=== PATIENT | female | born 1965 | race African-American/Black ===

== ENCOUNTER 2017-08-22 11:46 | Emergency (ER) | payer MEDICAID, OTHER ==
[~2017-08-22] VITALS: Ht 167.6 cm; Wt 72.6 kg
[2017-08-22] MEDS ORDERED: LORazepam Inj 2mg/ml 1ml IV ONE (12:00)
[2017-08-22 12:02] VITALS: BP 150/100
[2017-08-22 12:39] LABS: BASOPHILS % (AUTO) 1.6 % (0.0-2.0); EOSINOPHILS % (AUTO) 0.8 % (0.0-3.0); LYMPHOCYTES % (AUTO) 27.7 % (20.0-45.0); MEAN CORPUSCULAR HEMOGLOBIN 31.2 PG (27.0-31.0); MEAN CORPUSCULAR HGB CONC 32.6 G/DL (32.0-36.0); MEAN CORPUSCULAR VOLUME 96 FL (80-99); NEUTROPHILS % (AUTO) 61.8 % (45.0-75.0); PLATELET COUNT 366 K/UL (150-450); RED BLOOD COUNT 4.11 M/UL (4.20-5.40); RED CELL DISTRIBUTION WIDTH 12.4 % (11.6-14.8); WHITE BLOOD COUNT 6.8 K/UL (4.8-10.8)
[2017-08-22 12:54] LABS: ALANINE AMINOTRANSFERASE 50 U/L (3-33); ANION GAP 14 (5-15); ASPARTATE AMINO TRANSFERASE 37 U/L (5-40); CALCIUM 9.4 mg/dL (8.6-10.2); CARBON DIOXIDE 26 mEQ/L (20-30); CHLORIDE 99 mEQ/L (98-107); CREATININE 0.8 mg/dL (0.5-0.9); GLOMERULAR FILTRATION RATE > 60 mL/min (>60); HEMOLYSIS 2; POTASSIUM 3.8 mEQ/L (3.4-4.9); SODIUM 139 mEQ/L (135-145); TOTAL PROTEIN 7.8 g/dL (6.6-8.7)
[2017-08-22 12:55] LABS: APPEARANCE,URINE CLEAR; KETONES,URINE NEGATIVE (NEGATIVE); LEUKOCYTE ESTERASE ,URINE NEGATIVE (NEGATIVE); NITRITE,URINE NEGATIVE (NEGATIVE); PH,URINE 5 (4.5-8.0); PROTEIN,URINE NEGATIVE (NEGATIVE); UROBILINOGEN,URINE NORMAL MG/DL (0.0-1.0)
[2017-08-22 13:09] LABS: RBC,URINE 0-2 /HPF (0 - 2); WBC,URINE 0-2 /HPF (0 - 2)
[2017-08-22 13:10] LABS: BACTERIA,URINE FEW /HPF; SQUAMOUS EPITHELIAL CELL,UR FEW /LPF (NONE/OCC)
--- NOTE | 2017-08-22 14:18 | Emergency Room Report ---
History of Present Illness General Chief Complaint: General Complaint Source: Patient, Medical Record Present Illness HPI This is 51-year-old female presented after increased shakiness. Patient recently been evicted for recuperative care. Patient stated that she had become increasingly shaky. She denies recent drug use. She states that she had onset of symptoms after she had pain in her hernia. The patient had a previous history of a right inguinal hernia. She been vomiting or having any fever. Allergies: Coded Allergies: No Known Allergies (Unverified , 08/22/17) Patient History Past Medical History: see triage record Reviewed Nursing Documentation: PMH: Agreed, PSxH: Agreed Nursing Documentation-PMH Past Medical History: No History, Except For History Of Psychiatric Problem: Yes - Anxiety, Depression Review of Systems All Other Systems: negative except mentioned in HPI Physical Exam Vital Signs Date Time Temp Pulse Resp B/P (MAP) Pulse Ox O2 Delivery O2 Flow Rate FiO2 08/22/17 11:41 98.4 80 16 150/100 99 Room Air Sp02 EP Interpretation: reviewed, normal General Appearance: normal inspection, well appearing, no apparent distress, alert, GCS 15 Head: atraumatic ENT: normal ENT inspection, hearing grossly normal, normal voice Neck: normal inspection, full range of motion, supple, no bony tend Respiratory: normal inspection, lungs clear, normal breath sounds, no respiratory distress, no retraction, no wheezing Cardiovascular #1: regular rate, rhythm, no edema Gastrointestinal: normal inspection, normal bowel sounds, non tender, soft, no guarding, no hernia Genitourinary: no CVA tenderness Musculoskeletal: normal inspection, back normal, normal range of motion Neurologic: normal inspection, alert, responsive, speech normal Psychiatric: mood/affect normal, other - agitated, moving right leg Skin: normal inspection, normal color, no rash Medical Decision Making Diagnostic Impression: Primary Impression: Inguinal hernia Additional Impression: Anxiety ER Course Patient presented for agitation. Differential diagnosis included but was not limited to psychosis, intracranial mass, substance abuse, alcohol withdrawal, overdose. Because of complexity of patient's case laboratory testing and imaging studies were ordered.The patient shows no evidence of obstruction hernias easily reducible.The patient was given IV Ativan for agitation. The patient was having shaking movements to her lower extremities which appear volitional. Acute abdominal series read by radiologist showed no evidence of bowel obstruction. Clinically the patient hernia is easily reducible. Patient was discharged to back to recuperative care who will place the patient per social service manager. The patient did not have any seizure activity while in emergency department. She was noted to have some shaking activity which appeared volitional. The patient is advised followup with outpatient mental health. Labs Test 08/22/17 12:10 08/22/17 12:40 White Blood Count 6.8 K/UL (4.8-10.8) Red Blood Count 4.11 M/UL (4.20-5.40) Hemoglobin 12.8 G/DL (12.0-16.0) Hematocrit 39.3 % (37.0-47.0) Mean Corpuscular Volume 96 FL (80-99) Mean Corpuscular Hemoglobin 31.2 PG (27.0-31.0) Mean Corpuscular Hemoglobin Concent 32.6 G/DL (32.0-36.0) Red Cell Distribution Width 12.4 % (11.6-14.8) Platelet Count 366 K/UL (150-450) Mean Platelet Volume 6.0 FL (6.5-10.1) Neutrophils (%) (Auto) 61.8 % (45.0-75.0) Lymphocytes (%) (Auto) 27.7 % (20.0-45.0) Monocytes (%) (Auto) 8.0 % (1.0-10.0) Eosinophils (%) (Auto) 0.8 % (0.0-3.0) Basophils (%) (Auto) 1.6 % (0.0-2.0) Sodium Level 139 mEQ/L (135-145) Potassium Level 3.8 mEQ/L (3.4-4.9) Chloride Level 99 mEQ/L (98-107) Carbon Dioxide Level 26 mEQ/L (20-30) Anion Gap 14 (5-15) Blood Urea Nitrogen 11 mg/dL (7-23) Creatinine 0.8 mg/dL (0.5-0.9) Estimat Glomerular Filtration Rate > 60 mL/min (>60) Glucose Level 109 mg/dL (74-106) Calcium Level 9.4 mg/dL (8.6-10.2) Total Bilirubin 0.3 mg/dL (0.0-1.2) Aspartate Amino Transf (AST/SGOT) 37 U/L (5-40) Alanine Aminotransferase (ALT/SGPT) 50 U/L (3-33) Alkaline Phosphatase 148 U/L (35-104) Total Protein 7.8 g/dL (6.6-8.7) Albumin 3.9 g/dL (3.5-5.2) Globulin 3.9 g/dL Albumin/Globulin Ratio 1.0 (1.0-2.7) Urine Color Pale yellow Urine Appearance Clear Urine pH 5 (4.5-8.0) Urine Specific [place] 1.010 (1.005-1.035) Urine Protein Negative (NEGATIVE) Urine Glucose (UA) Negative (NEGATIVE) Urine Ketones Negative (NEGATIVE) Urine Occult Blood Negative (NEGATIVE) Urine Nitrite Negative (NEGATIVE) Urine Bilirubin Negative (NEGATIVE) Urine Urobilinogen Normal MG/DL (0.0-1.0) Urine Leukocyte Esterase Negative (NEGATIVE) Urine RBC 0-2 /HPF (0 - 2) Urine WBC 0-2 /HPF (0 - 2) Urine Squamous Epithelial Cells Few /LPF (NONE/OCC) Urine Bacteria Few /HPF (NONE) Urine Opiates Screen Negative (NEGATIVE) Urine Barbiturates Screen Negative (NEGATIVE) Phencyclidine (PCP) Screen Negative (NEGATIVE) Urine Amphetamines Screen Negative (NEGATIVE) Urine Benzodiazepines Screen Negative (NEGATIVE) Urine Cocaine Screen Negative (NEGATIVE) Urine Marijuana (THC) Screen Negative (NEGATIVE) Last Vital Signs Date Time Temp Pulse Resp B/P (MAP) Pulse Ox O2 Delivery O2 Flow Rate FiO2 08/22/17 12:02 98.4 16 150/100 99 Room Air 08/22/17 11:41 80 Status: improved Disposition: HOME, SELF-CARE Condition: Stable Referrals: AVIVA MANSFIELD,REFERRING (PCP) Yves Gandara Aug 22, 2017 14:18
[2017-08-22 14:20] VITALS: BP 161/106
--- NOTE | 2017-08-22 14:50 | Diagnostic Imaging Report ---
Indication: PAIN Technique: Supine and of lateral decubitus views of the abdomen Comparison: none Findings: There is slight groundglass opacity of the abdomen and central distribution of bowel loops. No gaseous distention of large or small bowel, significant air-fluid level, or evidence of free peritoneal air. Impression: Abdominal groundglass opacity in central distribution of small bowel loops suggests presence of ascites fluid. Correlate with clinical findings No evidence of bowel distention
[2017-08-22 16:12] VITALS: BP 137/88
== END 2017-08-22 16:12 | disposition home or self-care (01) ==
LOC: EDBD 11:46 → EMR 12:18
DX: K40.90 Unilateral inguinal hernia, without obstruction or gangrene, not specified as recurrent (principal); F41.9 Anxiety disorder, unspecified; F32.9 Major depressive disorder, single episode, unspecified
CPT/HCPCS: 36415; 74020; 80053; 80300; 80329; 81001; 85025; 96372; 99284

== ENCOUNTER 2017-10-27 16:32 | Emergency (ER) | payer MEDICAID ==
[~2017-10-27] VITALS: Ht 167.6 cm; Wt 59.0 kg
[2017-10-27 16:37] VITALS: BP 115/69
[2017-10-27] MEDS ORDERED: Sodium Chloride 500ML 500 ML IV ONE (16:44)
[2017-10-27] MEDS ORDERED: LORazepam Inj 2mg/ml 1ml IV ONE (16:45)
[2017-10-27] MEDS ORDERED: Morphine Sulfate 4mg/ml Inj IVP ONE (16:45)
[2017-10-27 17:58] LABS: APPEARANCE,URINE CLEAR; KETONES,URINE NEGATIVE (NEGATIVE); LEUKOCYTE ESTERASE ,URINE NEGATIVE (NEGATIVE); NITRITE,URINE NEGATIVE (NEGATIVE); PH,URINE 7 (4.5-8.0); PROTEIN,URINE NEGATIVE (NEGATIVE); UROBILINOGEN,URINE NORMAL MG/DL (0.0-1.0)
[2017-10-27 18:07] LABS: BACTERIA,URINE FEW /HPF; SQUAMOUS EPITHELIAL CELL,UR FEW /LPF (NONE/OCC); WBC,URINE 0-2 /HPF (0 - 2)
[2017-10-27 18:09] LABS: BASOPHILS % (AUTO) 2.4 % (0.0-2.0); EOSINOPHILS % (AUTO) 2.4 % (0.0-3.0); LYMPHOCYTES % (AUTO) 31.7 % (20.0-45.0); MEAN CORPUSCULAR HEMOGLOBIN 30.6 PG (27.0-31.0); MEAN CORPUSCULAR HGB CONC 32.2 G/DL (32.0-36.0); MEAN CORPUSCULAR VOLUME 95 FL (80-99); MEAN PLATELET VOLUME 5.2 FL (6.5-10.1); MONOCYTES % (AUTO) 6.4 % (1.0-10.0); PLATELET COUNT 395 K/UL (150-450); RED BLOOD COUNT 3.69 M/UL (4.20-5.40); RED CELL DISTRIBUTION WIDTH 12.7 % (11.6-14.8); WHITE BLOOD COUNT 7.2 K/UL (4.8-10.8)
[2017-10-27 18:11] LABS: ANION GAP 9 mmol/L (5-15); CALCIUM 9.9 MG/DL (8.5-10.1); CARBON DIOXIDE 30 MMOL/L (21-32); CHLORIDE 98 MMOL/L (98-107); CREATININE 0.9 MG/DL (0.55-1.30); GLOMERULAR FILTRATION RATE > 60 mL/min (>60); POTASSIUM 3.8 MMOL/L (3.5-5.1); SODIUM 137 MMOL/L (136-145)
[2017-10-27 18:16] LABS: ALANINE AMINOTRANSFERASE 42 U/L (12-78); ALBUMIN/GLOBULIN RATIO 0.7 (1.0-2.7); ASPARTATE AMINO TRANSFERASE 28 U/L (15-37); LIPASE 48 U/L (73-393); TOTAL PROTEIN 8.8 G/DL (6.4-8.2)
[2017-10-27 19:43] VITALS: BP 118/71
[2017-10-27] MEDS ORDERED: Ketorolac 30mg Inj IV ONE (20:00)
[2017-10-27 20:21] VITALS: BP 110/65
[2017-10-27 21:00] VITALS: BP 110/65
--- NOTE | 2017-10-27 21:12 | Emergency Room Report ---
History of Present Illness General Chief Complaint: Nausea Source: Patient Present Illness HPI 51-year-old female presents ED complaining of abdominal pain and vomiting. Started approximately 2 hours ago. Upon arrival patient appears very anxious and is crying. Patient states she has history of anxiety. Patient states she has a "tumor" in her lower abdomen which is causing hernia. Patient states she has a PMD which referring her to get multiple tests next week at [facility]. Patient states she also has ascites drained from her abdomen 2 weeks ago at another hospital. Patient states she does not have a history of cirrhosis. Pain is currently a 7/10, sharp, nonradiating. Denies fevers or chills. Denies chest pain shortness of breath. No other aggravating relieving factors. Denies any other associated symptoms Allergies: Uncoded Allergies: UNKNOWN PAIN MEDS (Allergy, Unknown, 10/27/17) Patient History Past Medical History: none Past Surgical History: none Pertinent Family History: none Social History: Denies: smoking, alcohol use, drug use Now: No Immunizations: UTD Reviewed Nursing Documentation: PMH: Agreed, PSxH: Agreed Nursing Documentation-PMH Past Medical History: No History, Except For Review of Systems All Other Systems: negative except mentioned in HPI Physical Exam Vital Signs Date Time Temp Pulse Resp B/P (MAP) Pulse Ox O2 Delivery O2 Flow Rate FiO2 10/27/17 16:27 66 19 138/78 98 Room Air 10/27/17 16:37 98.0 Sp02 EP Interpretation: reviewed, normal General Appearance: no apparent distress, alert, GCS 15, non-toxic, thin Head: normocephalic, atraumatic Eyes: bilateral eye normal inspection, bilateral eye PERRL ENT: hearing grossly normal, normal pharynx, no angioedema, normal voice Neck: full range of motion, supple/symm/no masses Respiratory: chest non-tender, lungs clear, normal breath sounds, speaking full sentences Cardiovascular #1: regular rate, rhythm, no edema Cardiovascular #2: 2+ carotid (R), 2+ carotid (L), 2+ radial (R), 2+ radial (L) , 2+ dorsalis pedis (R), 2+ dorsalis pedis (L) Gastrointestinal: normal bowel sounds, soft, non-distended, no guarding, no rebound, tenderness - RUQ Rectal: deferred Genitourinary: normal inspection, no CVA tenderness Musculoskeletal: back normal, gait/station normal, normal range of motion, non- tender Neurologic: alert, oriented x3, responsive, motor strength/tone normal, sensory intact, speech normal Psychiatric: judgement/insight normal, memory normal, depressed affect, anxious Reflexes: 3+ bicep (R), 3+ bicep (L), 3+ tricep (R), 3+ tricep (L), 3+ knee (R) , 3+ knee (L) Skin: normal color, no rash, warm/dry, well hydrated Lymphatic: no adenopathy Medical Decision Making Diagnostic Impression: Primary Impression: Inguinal hernia Qualified Codes: K40.91 - Unilateral inguinal hernia, without obstruction or gangrene, recurrent Additional Impression: Abdominal pain Qualified Codes: R10.9 - Unspecified abdominal pain ER Course Hospital Course 51-year-old F presents to ED with abdominal pain Differential diagnosis includes-appendicitis, cholecystitis, small bowel obstruction, gastritis, Clinical course Patient placed on stretcher. After initial history and physical I ordered labs , IV fluids, pain medications and CT scan Labs - no leukocytosis, electrolytes ok, LFTs normal, UA unremarkable CT scan shows some ascites, inguinal hernia but no signs of obstruction Discussed the findings with PMD; he is a patient has significant psychiatric history and has been seen by a full specialists for her abdominal pain. He agrees that if CT findings are unremarkable she can be discharged with outpatient followup Discussed the findings with the patient. No indication for admission or further workup. patient can be discharged I feel this is a highly complex case requiring extensive working including EKG/ Rhythm strip, Xray/CT/US, Blood/urine lab work, repeat exams while in ED, and administration of strong opiates/narcotics for pain control, admission to hospital or close patient follow up. Diagnosis - inguinal hernia, abdominal pain Stable and discharged to home. Followup with PMD. Return to ED if symptoms recur or worsen Labs Test 10/27/17 17:30 White Blood Count 7.2 K/UL (4.8-10.8) Red Blood Count 3.69 M/UL (4.20-5.40) Hemoglobin 11.3 G/DL (12.0-16.0) Hematocrit 35.0 % (37.0-47.0) Mean Corpuscular Volume 95 FL (80-99) Mean Corpuscular Hemoglobin 30.6 PG (27.0-31.0) Mean Corpuscular Hemoglobin Concent 32.2 G/DL (32.0-36.0) Red Cell Distribution Width 12.7 % (11.6-14.8) Platelet Count 395 K/UL (150-450) Mean Platelet Volume 5.2 FL (6.5-10.1) Neutrophils (%) (Auto) 57.0 % (45.0-75.0) Lymphocytes (%) (Auto) 31.7 % (20.0-45.0) Monocytes (%) (Auto) 6.4 % (1.0-10.0) Eosinophils (%) (Auto) 2.4 % (0.0-3.0) Basophils (%) (Auto) 2.4 % (0.0-2.0) Urine Color Pale yellow Urine Appearance Clear Urine pH 7 (4.5-8.0) Urine Specific [place] 1.005 (1.005-1.035) Urine Protein Negative (NEGATIVE) Urine Glucose (UA) Negative (NEGATIVE) Urine Ketones Negative (NEGATIVE) Urine Occult Blood 1+ (NEGATIVE) Urine Nitrite Negative (NEGATIVE) Urine Bilirubin Negative (NEGATIVE) Urine Urobilinogen Normal MG/DL (0.0-1.0) Urine Leukocyte Esterase Negative (NEGATIVE) Urine RBC 5-10 /HPF (0 - 2) Urine WBC 0-2 /HPF (0 - 2) Urine Squamous Epithelial Cells Few /LPF (NONE/OCC) Urine Bacteria Few /HPF (NONE) Sodium Level 137 MMOL/L (136-145) Potassium Level 3.8 MMOL/L (3.5-5.1) Chloride Level 98 MMOL/L (98-107) Carbon Dioxide Level 30 MMOL/L (21-32) Anion Gap 9 mmol/L (5-15) Blood Urea Nitrogen 18 mg/dL (7-18) Creatinine 0.9 MG/DL (0.55-1.30) Estimat Glomerular Filtration Rate > 60 mL/min (>60) Glucose Level 95 MG/DL (74-106) Calcium Level 9.9 MG/DL (8.5-10.1) Total Bilirubin 0.3 MG/DL (0.2-1.0) Aspartate Amino Transf (AST/SGOT) 28 U/L (15-37) Alanine Aminotransferase (ALT/SGPT) 42 U/L (12-78) Alkaline Phosphatase 120 U/L (46-116) Total Protein 8.8 G/DL (6.4-8.2) Albumin 3.5 G/DL (3.4-5.0) Globulin 5.3 g/dL Albumin/Globulin Ratio 0.7 (1.0-2.7) Lipase 48 U/L (73-393) CT/MRI/US Diagnostic Results CT/MRI/US Diagnostic Results : Imaging Test Ordered: CT A/P Impression Large volume of ascites present, presumably related to the known history of cirrhosis. No urinary tract stone or hydronephrosis. No evidence of intestinal obstruction, appendicitis or free air. Right inguinal region soft tissue thickening, could include a small amount of ascites extending into a right inguinal hernia and/or postsurgical changes. No adnexal mass is identified. Last Vital Signs Date Time Temp Pulse Resp B/P (MAP) Pulse Ox O2 Delivery O2 Flow Rate FiO2 10/27/17 20:21 98.0 71 15 110/65 100 Room Air Status: improved Disposition: HOME, SELF-CARE Condition: Stable Scripts Unable to Obtain Active Prescriptions or Reported Meds Referrals: Blaine Malave Patient Instructions: Inguinal Hernia, Adult, [id number] VÍCTOR JOSHI M.D. Oct 27, 2017 21:12
--- NOTE | 2017-10-28 10:01 | Diagnostic Imaging Report ---
Clinical Indication: Abdominal and back pain and 2 hours. History of liver cirrhosis Technique: No oral contrast utilized, per emergency room physician request IV administration nonionic contrast. Venous phase spiral acquisition obtained through the abdomen and pelvis. Multiplanar reconstructions were generated. Total dose length product 556 mGycm. CTDIvol(s) 10 mGy. Dose reduction achieved using automated exposure control Comparison: None Findings: There is a moderate amount of ascites fluid present. There is colonic diverticulosis. No definite evidence of diverticulitis. The appendix is normal. No small bowel distention. No free intraperitoneal air. No pelvic mass or adenopathy. Soft tissue attenuation material is seen within the right inguinal canal. This does not appear to be herniated bowel, although this cannot be completely ruled out in the absence of enteric contrast administration The liver demonstrates normal contour. The portal vein is patent. No focal hepatic abnormalities. Gallbladder, bile bile ducts are unremarkable. The pancreas is atrophic and the pancreatic duct is slightly ectatic. The spleen is not enlarged. The adrenals and kidneys are unremarkable. No retroperitoneal or mesenteric mass or adenopathy. The uterus is not visualized, likely surgically absent. The included lung bases are clear. There are bilateral breast implants. The bones demonstrate degenerative spondylosis changes. Impression: Ascites, presumably related to stated clinical history of cirrhosis Soft tissue attenuation material within the right inguinal canal, could indicate postsurgical changes or dense fluid. Does not appear to be herniated bowel Diverticulosis. No evidence of diverticulitis Normal-appearing liver, despite stated clinical history of cirrhosis Pancreatic atrophy, suspect sequela of prior pancreatitis Bilateral breast implants Degenerative lumbar spondylosis This agrees with the preliminary interpretation provided overnight by [facility] teleradiology service. The CT scanner at [facility] is accredited by the [employer] and the scans are performed using protocols designed to limit radiation exposure to as low as reasonably achievable to attain images of sufficient resolution adequate for diagnostic evaluation.
[2017-10-28] MEDS ORDERED: ROBAXIN-750750 MG PO (17:21)
[2017-10-28] MEDS ORDERED: BENADRYL ALLERG25 M1 PO (17:21)
[2017-10-28] MEDS ORDERED: QUETIAPINE FUM300 MG ORAL (17:43)
[2017-10-28] MEDS ORDERED: LEXAPRO20 MG ORAL ×2 (17:43→17:47)
[2017-10-28] MEDS ORDERED: SPIRONOLACTONE1 EACH ORAL (17:43)
[2017-10-28] MEDS ORDERED: DOK100 M1 PO (17:43)
[2017-10-28] MEDS ORDERED: FUROSEMIDE40 MG/5 ML ORAL (17:43)
[2017-10-28] MEDS ORDERED: PANTOPRAZOLE SO20 MG ORAL (17:43)
[2017-10-28] MEDS ORDERED: ENALAPRIL MALEA25 GM MC (17:43)
[2017-10-28] MEDS ORDERED: IBUPROFEN400 MG ORAL (18:03)
== END 2017-10-27 21:00 | disposition home or self-care (01) ==
LOC: EDBD 16:32 → EMR 17:01
DX: K40.90 Unilateral inguinal hernia, without obstruction or gangrene, not specified as recurrent (principal); R10.9 Unspecified abdominal pain; K57.30 Diverticulosis of large intestine without perforation or abscess without bleeding; Z98.82 Breast implant status; M47.816 Spondylosis without myelopathy or radiculopathy, lumbar region
CPT/HCPCS: 36415; 74177; 80053; 81003; 83690; 85025; 96361; 96374; 96375; 99284; J1885; J2270; J2405; J7040; Q9967

== ENCOUNTER 2017-10-28 15:33 | Emergency (ER) | payer MEDICAID ==
[~2017-10-28] VITALS: Ht 162.6 cm; Wt 59.0 kg
[2017-10-28 15:40] VITALS: BP 132/73
--- NOTE | 2017-10-28 15:57 | Emergency Room Report ---
History of Present Illness General Chief Complaint: General Complaint Source: Patient Present Illness HPI 51 YO Female presents to the ED c/o lower extremity muscle cramping times one day worsening or progression since running out of her muscle relaxant medication that she states is Robaxin. She reports generalized itchiness. denies lesions open sores or blisters.Denies lesions/rashes elsewhere on the body. Denies new medications or body washes or creams. Denies swelling of the lips, tongue , throat or airway. Denies wheezing, or shortness of breath. Denies recent travel, recent illness or ill contacts. denies blisters, oral lesions, or sloughing of the skin. denies trauma or fall. Denies CP, Palpitations, LOC, AMS, dizziness, Changes in Vision, Sensation, paresthesias, or a sudden severe headache. Allergies: Coded Allergies: ACETAMINOPHEN (Verified Allergy, Unknown, 10/28/17) HYDROCODONE (Verified Allergy, Unknown, 10/28/17) Patient History Past Medical History: see triage record Past Surgical History: none Pertinent Family History: none Reviewed Nursing Documentation: PMH: Agreed, PSxH: Agreed Nursing Documentation-PMH Hx Cardiac Problems: No Hx Hypertension: No Hx Pacemaker: No Hx Asthma: No Hx COPD: No Hx Diabetes: No Hx Cancer: No Hx Gastrointestinal Problems: No Hx Dialysis: No Hx Neurological Problems: No Hx Cerebrovascular Accident: No Hx Seizures: No Review of Systems All Other Systems: negative except mentioned in HPI Physical Exam Vital Signs Date Time Temp Pulse Resp B/P (MAP) Pulse Ox O2 Delivery O2 Flow Rate FiO2 10/28/17 15:30 97.9 86 16 132/73 98 Sp02 EP Interpretation: reviewed, normal General Appearance: alert, GCS 15, non-toxic, mild distress Head: normocephalic, atraumatic Eyes: bilateral eye normal inspection, bilateral eye PERRL ENT: hearing grossly normal, normal pharynx, normal voice, other - no oral lesions Neck: full range of motion, supple/symm/no masses Respiratory: chest non-tender, lungs clear, normal breath sounds, speaking full sentences Cardiovascular #1: regular rate, rhythm, no edema, normal capillary refill Gastrointestinal: normal bowel sounds, non tender, soft Rectal: deferred Musculoskeletal: back normal, gait/station normal, normal range of motion, tender - calf cramping. Neurologic: alert, oriented x3, responsive, motor strength/tone normal, sensory intact, speech normal, no pronator, other - restless legs during exam with questioning she is distracted and her symptoms do subside. , grossly normal Psychiatric: other - histrionic. Skin: normal color, no rash, warm/dry, well hydrated Medical Decision Making PA Attestation Dr. Clayton is my supervising Physician whom patient management has been discussed with. Diagnostic Impression: Primary Impression: Muscle cramping Additional Impression: Medication refill ER Course 51 YO Female presents to the ED c/o lower extremity muscle cramping times one day worsening or progression since running out of her muscle relaxant medication that she states is Robaxin. She reports generalized itchiness. denies lesions open sores or blisters.Denies lesions/rashes elsewhere on the body. Denies new medications or body washes or creams. Denies swelling of the lips, tongue , throat or airway. Denies wheezing, or shortness of breath. Denies recent travel, recent illness or ill contacts. denies blisters, oral lesions, or sloughing of the skin. denies trauma or fall. Denies CP, Palpitations, LOC, AMS, dizziness, Changes in Vision, Sensation, paresthesias, or a sudden severe headache. Ddx considered but are not limited to Pseudoseizure, muscle cramps and spasms, electrolyte abnormality, malingering, psych somatizations just to name a few. This patient states that her symptoms are primarily because she's been out of her Robaxin. Patient also states that she has a psychiatric complaint and this Saturday. When I reviewed this patient's previous charts I see that suspected psychiatric condition and that she has been worked up by a specialist in the past. She was seen here in the emergency department yesterday and her primary care doctor is aware of this and stated that the patient has been going from the ER to ER. -Patient appears to have restless legs during exam with questioning she is distracted and her symptoms do subside. Vital signs: are WNL, pt. is afebrile H&PE are most consistent with RLS, no evidence of grand-mal seizure. no evidence of neurological deficits. ORDERS: Given that laboratory work was performed yesterday and was within normal limits I do not feel that it is appropriate to repeat these examinations. -UA: WNL -UDS: Negative ED INTERVENTIONS: -1 G Robaxin PO -Benadryl 50mg -I do not suspect an emergent condition at this time. With current presentation , pt. is stable for close outpatient follow up and conservative treatment. D/ w pt. to return promptly to ED with worsening or new symptoms.- Pt. (and or responsible democrat) verbalizes' understanding and agreement with proposed treatment plan. DISCHARGE: At this time pt. is stable for d/c to home. Will provide printed patient care instructions, and any necessary prescriptions. Care plan and follow up instructions have been discussed with the patient prior to discharge. Labs Test 10/28/17 16:30 Urine Color Pale yellow Urine Appearance Clear Urine pH 5 (4.5-8.0) Urine Specific [place] 1.005 (1.005-1.035) Urine Protein Negative (NEGATIVE) Urine Glucose (UA) Negative (NEGATIVE) Urine Ketones Negative (NEGATIVE) Urine Occult Blood 1+ (NEGATIVE) Urine Nitrite Negative (NEGATIVE) Urine Bilirubin Negative (NEGATIVE) Urine Urobilinogen Normal MG/DL (0.0-1.0) Urine Leukocyte Esterase Negative (NEGATIVE) Urine RBC 0-2 /HPF (0 - 2) Urine WBC 0-2 /HPF (0 - 2) Urine Squamous Epithelial Cells Few /LPF (NONE/OCC) Urine Bacteria Few /HPF (NONE) Urine Opiates Screen Negative (NEGATIVE) Urine Barbiturates Screen Negative (NEGATIVE) Phencyclidine (PCP) Screen Negative (NEGATIVE) Urine Amphetamines Screen Negative (NEGATIVE) Urine Benzodiazepines Screen Negative (NEGATIVE) Urine Cocaine Screen Negative (NEGATIVE) Urine Marijuana (THC) Screen Negative (NEGATIVE) Last Vital Signs Date Time Temp Pulse Resp B/P (MAP) Pulse Ox O2 Delivery O2 Flow Rate FiO2 10/28/17 15:30 97.9 86 16 132/73 98 Disposition: HOME, SELF-CARE Condition: Stable Scripts Ibuprofen* (MOTRIN*) 400 Mg Tablet 400 MG ORAL THREE TIMES A DAY, #20 TAB 0 Refills Prov: Imelda Decker P.A. 10/28/17 Escitalopram Oxalate* (LEXAPRO*) 20 Mg Tablet 20 MG ORAL DAILY, #20 TAB Prov: Imelda Decker P.A. 10/28/17 Diphenhydramine Hcl (BENADRYL ALLERGY) 25 Mg Tablet 25 MG PO Q6HR, #20 TAB Prov: Imelda Decker 10/28/17 Methocarbamol* (ROBAXIN-750*) 750 Mg Tablet 750 MG PO QID, #30 TAB 0 Refills Prov: Imelda Decker 10/28/17 Patient Instructions: Medical Screening Exam, Muscle Cramps and Spasms, Easy-to -Read Additional Instructions: Take medications as directed. Follow up with a Psychologist and Neurologist within 3 days, --Please review list of primary care clinics, if you do not already have a primary care provider Return sooner to ED if new symptoms occur, or current symptoms become worse. Do not drink alcohol, drive, or operate heavy machinery while taking Robaxin ( Muscle Relaxer) as this may cause drowsiness. - Please note that this Emergency Department Report was dictated using As Seen on TVcomputer specialist technology software, occasionally this can lead to erroneous entry secondary to interpretation by the dictation equipment. Imelda Decker Oct 28, 2017 15:57
[2017-10-28] MEDS ORDERED: Methocarbamol 500mg tab ORAL ONE (16:15)
[2017-10-28 16:46] LABS: APPEARANCE,URINE CLEAR; KETONES,URINE NEGATIVE (NEGATIVE); LEUKOCYTE ESTERASE ,URINE NEGATIVE (NEGATIVE); NITRITE,URINE NEGATIVE (NEGATIVE); PH,URINE 5 (4.5-8.0); PROTEIN,URINE NEGATIVE (NEGATIVE); UROBILINOGEN,URINE NORMAL MG/DL (0.0-1.0)
[2017-10-28 16:57] LABS: BACTERIA,URINE FEW /HPF; RBC,URINE 0-2 /HPF (0 - 2); SQUAMOUS EPITHELIAL CELL,UR FEW /LPF (NONE/OCC); WBC,URINE 0-2 /HPF (0 - 2)
[2017-10-28] MEDS ORDERED: BENADRYL ALLERG25 M1 PO (17:21)
[2017-10-28] MEDS ORDERED: ROBAXIN-750750 MG PO (17:21)
[2017-10-28] MEDS ORDERED: LEXAPRO20 MG ORAL ×2 (17:43→17:47)
[2017-10-28] MEDS ORDERED: DOK100 M1 PO (17:43)
[2017-10-28] MEDS ORDERED: SPIRONOLACTONE1 EACH ORAL (17:43)
[2017-10-28] MEDS ORDERED: PANTOPRAZOLE SO20 MG ORAL (17:43)
[2017-10-28] MEDS ORDERED: ENALAPRIL MALEA25 GM MC (17:43)
[2017-10-28] MEDS ORDERED: FUROSEMIDE40 MG/5 ML ORAL (17:43)
[2017-10-28] MEDS ORDERED: QUETIAPINE FUM300 MG ORAL (17:43)
[2017-10-28 18:00] VITALS: BP 128/67
[2017-10-28] MEDS ORDERED: IBUPROFEN400 MG ORAL (18:03)
== END 2017-10-28 18:00 | disposition home or self-care (01) ==
LOC: EDBD 15:33 → EMR 16:08
DX: R25.2 Cramp and spasm (principal); Z88.6 Allergy status to analgesic agent; Z76.0 Encounter for issue of repeat prescription
CPT/HCPCS: 80307; 81003; 99284

== ENCOUNTER 2017-11-07 08:41 | Inpatient (IN) | payer MEDICAID ==
[~2017-11-07] VITALS: Ht 175.3 cm; Wt 60.8 kg
[~2017-11-07 08:41] MED LIST: BENADRYL ALLERG25 M1 PO; DOK100 M1 PO; ENALAPRIL MALEA25 GM MC; FUROSEMIDE40 MG/5 ML ORAL; IBUPROFEN400 MG ORAL; LEXAPRO20 MG ORAL; PANTOPRAZOLE SO20 MG ORAL; QUETIAPINE FUM300 MG ORAL; ROBAXIN-750750 MG PO; SPIRONOLACTONE1 EACH ORAL
[2017-11-07] MEDS ORDERED: Sodium Chloride 500ML 500 ML IV ONE (09:08)
[2017-11-07] MEDS ORDERED: LORazepam Inj 2mg/ml 1ml IV ONE (09:15)
[2017-11-07 09:38] VITALS: BP 153/87
[2017-11-07 09:41] LABS: BASOPHILS % (AUTO) 2.3 % (0.0-2.0); EOSINOPHILS % (AUTO) 3.5 % (0.0-3.0); LYMPHOCYTES % (AUTO) 29.9 % (20.0-45.0); MEAN CORPUSCULAR HEMOGLOBIN 31.9 PG (27.0-31.0); MEAN CORPUSCULAR HGB CONC 33.2 G/DL (32.0-36.0); MEAN CORPUSCULAR VOLUME 96 FL (80-99); MEAN PLATELET VOLUME 6.7 FL (6.5-10.1); MONOCYTES % (AUTO) 7.7 % (1.0-10.0); NEUTROPHILS % (AUTO) 56.6 % (45.0-75.0); PLATELET COUNT 268 K/UL (150-450); RED BLOOD COUNT 4.26 M/UL (4.20-5.40); RED CELL DISTRIBUTION WIDTH 12.5 % (11.6-14.8); WHITE BLOOD COUNT 6.1 K/UL (4.8-10.8)
[2017-11-07 10:03] LABS: ANION GAP 7 mmol/L (5-15); CALCIUM 9.8 MG/DL (8.5-10.1); CARBON DIOXIDE 27 MMOL/L (21-32); CHLORIDE 102 MMOL/L (98-107); GLOMERULAR FILTRATION RATE > 60 mL/min (>60); POTASSIUM 4.4 MMOL/L (3.5-5.1); SODIUM 136 MMOL/L (136-145)
[2017-11-07 10:13] LABS: ACETAMINOPHEN < 2 MCG/ML (10-30); ALANINE AMINOTRANSFERASE 36 U/L (12-78); ALBUMIN/GLOBULIN RATIO 0.7 (1.0-2.7); ALCOHOL < 3 mg/dL; ASPARTATE AMINO TRANSFERASE 34 U/L (15-37); CKMB 1.2 NG/ML (0.0-3.6); TOTAL PROTEIN 9.7 G/DL (6.4-8.2)
[2017-11-07 10:15] LABS: APPEARANCE,URINE CLEAR; KETONES,URINE NEGATIVE (NEGATIVE); LEUKOCYTE ESTERASE ,URINE NEGATIVE (NEGATIVE); NITRITE,URINE NEGATIVE (NEGATIVE); PH,URINE 6 (4.5-8.0); PROTEIN,URINE NEGATIVE (NEGATIVE); UROBILINOGEN,URINE NORMAL MG/DL (0.0-1.0)
[2017-11-07 10:25] LABS: BACTERIA,URINE OCCASIONAL /HPF; SQUAMOUS EPITHELIAL CELL,UR OCCASIONAL /LPF (NONE/OCC); WBC,URINE 0-2 /HPF (0 - 2)
[2017-11-07] MEDS ORDERED: DULoxetine 30mg cap ORAL ONE (10:45)
--- NOTE | 2017-11-07 11:20 | Emergency Room Report ---
History of Present Illness General Chief Complaint: General Complaint Source: EMS Present Illness HPI 51-year-old female presents ED for evaluation. Patient brought by EMS from [facility]. Patient states that she is unable to walk he cannot feel her legs. Patient states that she was prescribed muscle relaxers refill here for muscle cramping last week. States she's been getting progressively worse and is unable to move. Patient denies any slurred speech or facial droop. Denies any chest pain or shortness of breath. Patient admits to a extensive psychiatric history and states she is not taking her medication and many days. Denies any suicidal or homicidal ideation. Denies hearing voices. No other aggravating relieving factors. Denies any other associated symptoms Allergies: Coded Allergies: ACETAMINOPHEN (Verified Allergy, Unknown, 10/28/17) HYDROCODONE (Verified Allergy, Unknown, 10/28/17) HYDROMORPHONE (Unverified Allergy, Unknown, 11/07/17) Patient History Past Medical History: HTN Past Surgical History: none Pertinent Family History: none Social History: Denies: smoking, alcohol use, drug use Last Menstrual Period: unknown Now: No Immunizations: UTD Reviewed Nursing Documentation: PMH: Agreed, PSxH: Agreed Nursing Documentation-PMH Past Medical History: No History, Except For Hx Hypertension: Yes Hx Pacemaker: No Hx Asthma: No Hx COPD: No Hx Diabetes: No Hx Cancer: No Hx Gastrointestinal Problems: No Hx Dialysis: No Hx Neurological Problems: No Hx Cerebrovascular Accident: No Hx Seizures: No Review of Systems All Other Systems: negative except mentioned in HPI Physical Exam Vital Signs Date Time Temp Pulse Resp B/P (MAP) Pulse Ox O2 Delivery O2 Flow Rate FiO2 11/07/17 08:41 97.9 104 18 157/94 99 Room Air Sp02 EP Interpretation: reviewed, normal General Appearance: alert, GCS 15, non-toxic, mild distress Head: normocephalic, atraumatic Eyes: bilateral eye normal inspection, bilateral eye PERRL ENT: hearing grossly normal, normal pharynx, no angioedema, normal voice Neck: full range of motion, supple/symm/no masses Respiratory: chest non-tender, lungs clear, normal breath sounds, speaking full sentences Cardiovascular #1: regular rate, rhythm, no edema Cardiovascular #2: 2+ carotid (R), 2+ carotid (L), 2+ radial (R), 2+ radial (L) , 2+ dorsalis pedis (R), 2+ dorsalis pedis (L) Gastrointestinal: normal bowel sounds, non tender, soft, non-distended, no guarding, no rebound Rectal: deferred Genitourinary: normal inspection, no CVA tenderness Musculoskeletal: back normal, gait/station normal, normal range of motion, non- tender Neurologic: alert, responsive, motor weakness, sensory deficit - unable to feel her extremities, oriented Psychiatric: depressed affect, anxious Reflexes: 3+ bicep (R), 3+ bicep (L), 3+ tricep (R), 3+ tricep (L), 3+ knee (R) , 3+ knee (L) Skin: normal color, no rash, warm/dry, well hydrated Lymphatic: no adenopathy Medical Decision Making Diagnostic Impression: Primary Impression: Weakness Additional Impression: Depression with somatization ER Course Hospital Course 51-year-old female presents to ED with weakness in arms and legs. Confused Differential diagnoses include: Post ictal, Dilantin toxicity, alcohol toxicity , intracranial injury Clinical course She placed on stretcher. On surveillance monitor. After initial history and physical ordered labs, IV fluids, EKG, MRI brain Labs reviewed-electrolytes okay, leukocytosis, hemoglobin/hematocrit stable, trop negative MRI brain unremarkable EKG-normal sinus rhythm no acute ischemic changes interpreted by me Patient evaluated by Dr. Gorman (psychiatry); believes that patient's symptoms likely psychosomatic. However patient continues to endorsed weakness in her extremities. Given Cymbalta, Neurontin, ativan in ED. Patient has had multiple recent ER visits for vague psychosomatic complaints case discussed with Dr. Carvajal and he agreed to accept the patient to his service for further care and support i. I feel this is a highly complex case requiring extensive working including EKG/Rhythm strip, Xray/CT/US, Blood/urine lab work, repeat exams while in ED, and administration of strong opiates/narcotics for pain control, admission to hospital or close patient follow up. Diagnosis - weakness, depression wtih somatization Admitted to floor in serious condition Labs Test 11/07/17 09:25 11/07/17 10:00 White Blood Count 6.1 K/UL (4.8-10.8) Red Blood Count 4.26 M/UL (4.20-5.40) Hemoglobin 13.6 G/DL (12.0-16.0) Hematocrit 40.9 % (37.0-47.0) Mean Corpuscular Volume 96 FL (80-99) Mean Corpuscular Hemoglobin 31.9 PG (27.0-31.0) Mean Corpuscular Hemoglobin Concent 33.2 G/DL (32.0-36.0) Red Cell Distribution Width 12.5 % (11.6-14.8) Platelet Count 268 K/UL (150-450) Mean Platelet Volume 6.7 FL (6.5-10.1) Neutrophils (%) (Auto) 56.6 % (45.0-75.0) Lymphocytes (%) (Auto) 29.9 % (20.0-45.0) Monocytes (%) (Auto) 7.7 % (1.0-10.0) Eosinophils (%) (Auto) 3.5 % (0.0-3.0) Basophils (%) (Auto) 2.3 % (0.0-2.0) Sodium Level 136 MMOL/L (136-145) Potassium Level 4.4 MMOL/L (3.5-5.1) Chloride Level 102 MMOL/L (98-107) Carbon Dioxide Level 27 MMOL/L (21-32) Anion Gap 7 mmol/L (5-15) Blood Urea Nitrogen 12 mg/dL (7-18) Creatinine 1.0 MG/DL (0.55-1.30) Estimat Glomerular Filtration Rate > 60 mL/min (>60) Glucose Level 75 MG/DL (74-106) Calcium Level 9.8 MG/DL (8.5-10.1) Total Bilirubin 0.1 MG/DL (0.2-1.0) Aspartate Amino Transf (AST/SGOT) 34 U/L (15-37) Alanine Aminotransferase (ALT/SGPT) 36 U/L (12-78) Alkaline Phosphatase 118 U/L (46-116) Total Creatine Kinase 66 U/L (26-308) Creatine Kinase MB 1.2 NG/ML (0.0-3.6) Creatine Kinase MB Relative Index 1.8 Troponin I 0.000 ng/mL (0.000-0.056) Total Protein 9.7 G/DL (6.4-8.2) Albumin 3.9 G/DL (3.4-5.0) Globulin 5.8 g/dL Albumin/Globulin Ratio 0.7 (1.0-2.7) Salicylates Level 6.1 ug/mL (2.8-20) Acetaminophen Level < 2 MCG/ML (10-30) Serum Alcohol < 3 mg/dL Urine Color Pale yellow Urine Appearance Clear Urine pH 6 (4.5-8.0) Urine Specific [place] 1.010 (1.005-1.035) Urine Protein Negative (NEGATIVE) Urine Glucose (UA) Negative (NEGATIVE) Urine Ketones Negative (NEGATIVE) Urine Occult Blood 2+ (NEGATIVE) Urine Nitrite Negative (NEGATIVE) Urine Bilirubin Negative (NEGATIVE) Urine Urobilinogen Normal MG/DL (0.0-1.0) Urine Leukocyte Esterase Negative (NEGATIVE) Urine RBC 2-4 /HPF (0 - 2) Urine WBC 0-2 /HPF (0 - 2) Urine Squamous Epithelial Cells Occasional /LPF Urine Bacteria Occasional /HPF (NONE) Urine Opiates Screen Negative (NEGATIVE) Urine Barbiturates Screen Negative (NEGATIVE) Phencyclidine (PCP) Screen Negative (NEGATIVE) Urine Amphetamines Screen Negative (NEGATIVE) Urine Benzodiazepines Screen Negative (NEGATIVE) Urine Cocaine Screen Negative (NEGATIVE) Urine Marijuana (THC) Screen Negative (NEGATIVE) EKG Diagnostic Results Rate: normal Rhythm: NSR ST Segments: no acute changes ASA given to the pt in ED: No Rhythm Strip Diag. Results EP Interpretation: yes Rhythm: NSR, no PVC's, no ectopy CT/MRI/US Diagnostic Results CT/MRI/US Diagnostic Results : Imaging Test Ordered: MRI BRain Impression no acute process Last Vital Signs Date Time Temp Pulse Resp B/P (MAP) Pulse Ox O2 Delivery O2 Flow Rate FiO2 11/07/17 09:38 98.9 99 14 153/87 100 Room Air Status: improved Disposition: ADMITTED INPATIENT Condition: Serious Referrals: NON PHYSICIAN (PCP) VÍCTOR JOSHI M.D. Nov 07, 2017 11:20
--- NOTE | 2017-11-07 11:40 | Diagnostic Imaging Report ---
Indication: 51-year-old female ER patient with right arm and leg weakness and numbness, left arm and leg weakness and numbness, for 4 days Technique: sagittal T1 fast spin echo, axial T1 FLAIR, axial T2 FLAIR, axial T2 FS PROPELLER, axial T2* GRE, axial diffusion weighted images. ADC and exponential ADC maps generated Comparison: None Findings: No abnormal areas of restricted diffusion to suggest acute infarction. No acute hemorrhage or edema. No mass effect nor midline shift. Normal size ventricles and extra axial CSF spaces. There is sphenoid, ethmoid, and maxillary sinus disease. The included orbits are unremarkable. Impression: Negative for acute intracranial bleed, mass effect, or infarct Sinus disease
[2017-11-07] MEDS ORDERED: Miralax 17gm pkt ORAL PRN (11:45)
[2017-11-07] MEDS ORDERED: Zolpidem 5mg tab ORAL PRN (11:45)
[2017-11-07 13:27] VITALS: BP 135/82
[2017-11-07 16:16] VITALS: BP 136/98
--- NOTE | 2017-11-07 16:24 | Consultation ---
History of Present Illness General Date patient seen: Nov 08, 2017 Chief Complaint: General Complaint Present Illness HPI 51-year-old female presented to ED for evaluation from [facility]. Patient states that she is unable to walk he cannot feel her legs. States she's been getting progressively worse and is unable to move. Patient has extensive psychiatric history and states she is not taking her medication and many days. she is admitted for further work up. Allergies: Coded Allergies: ACETAMINOPHEN (Verified Allergy, Unknown, 10/28/17) HYDROCODONE (Verified Allergy, Unknown, 10/28/17) HYDROMORPHONE (Unverified Allergy, Unknown, 11/07/17) Medication History Scheduled Diphenhydramine Hcl (Benadryl Allergy), 25 MG PO Q6HR Enalapril Maleate (Enalapril Maleate), 5 MG MC DAILY, (Reported) Escitalopram Oxalate* (Lexapro*), 20 MG ORAL DAILY, (Reported) Escitalopram Oxalate* (Lexapro*), 20 MG ORAL DAILY Furosemide (Furosemide), 20 MG ORAL DAILY, (Reported) Ibuprofen* (Motrin*), 400 MG ORAL THREE TIMES A DAY Methocarbamol* (Robaxin-750*), 750 MG PO QID Pantoprazole (Pantoprazole), 40 MG ORAL DAILY, (Reported) Quetiapine Fumarate (Quetiapine Fumarate), 200 MG ORAL BEDTIME, (Reported) Spironolact/Hydrochlorothiazid (Spironolactone-Hctz 25-25 Tab), 1 TAB ORAL DAILY , (Reported) Miscellaneous Medications Docusate Sodium (Dok), 100 MG PO, (Reported) Patient History Healthcare decision maker Resuscitation status Full Code Advanced Directive on File No Past Medical/Surgical History Past Medical/Surgical History: (1) Depression with somatization Review of Systems All Other Systems: negative except mentioned in HPI Physical Exam General Appearance: cachetic Lines, tubes and drains: peripheral HEENT: normocephalic, atraumatic Neck: non-tender, supple Respiratory/Chest: chest wall non-tender, no respiratory distress Breasts: no masses Cardiovascular/Chest: normal rate, no JVD Abdomen: normal bowel sounds Last 24 Hour Vital Signs Date Time Temp Pulse Resp B/P (MAP) Pulse Ox O2 Delivery O2 Flow Rate FiO2 11/07/17 16:16 97.7 111 20 136/98 99 Nasal Cannula 11/07/17 13:27 100.0 99 20 135/82 100 Room Air 11/07/17 12:11 101 18 149/92 100 11/07/17 09:38 98.9 99 14 153/87 100 Room Air 11/07/17 08:41 97.9 104 18 157/94 99 Room Air Intake and Output 11/07/17 11/08/17 19:00 07:00 Intake Total 500 ml Balance 500 ml Intake IV Total 500 ml # Voids 1 Laboratory Tests Test 11/07/17 09:25 11/07/17 10:00 White Blood Count 6.1 K/UL (4.8-10.8) Red Blood Count 4.26 M/UL (4.20-5.40) Hemoglobin 13.6 G/DL (12.0-16.0) Hematocrit 40.9 % (37.0-47.0) Mean Corpuscular Volume 96 FL (80-99) Mean Corpuscular Hemoglobin 31.9 PG (27.0-31.0) H Mean Corpuscular Hemoglobin Concent 33.2 G/DL (32.0-36.0) Red Cell Distribution Width 12.5 % (11.6-14.8) Platelet Count 268 K/UL (150-450) Mean Platelet Volume 6.7 FL (6.5-10.1) Neutrophils (%) (Auto) 56.6 % (45.0-75.0) Lymphocytes (%) (Auto) 29.9 % (20.0-45.0) Monocytes (%) (Auto) 7.7 % (1.0-10.0) Eosinophils (%) (Auto) 3.5 % (0.0-3.0) H Basophils (%) (Auto) 2.3 % (0.0-2.0) H Sodium Level 136 MMOL/L (136-145) Potassium Level 4.4 MMOL/L (3.5-5.1) Chloride Level 102 MMOL/L (98-107) Carbon Dioxide Level 27 MMOL/L (21-32) Anion Gap 7 mmol/L (5-15) Blood Urea Nitrogen 12 mg/dL (7-18) Creatinine 1.0 MG/DL (0.55-1.30) Estimat Glomerular Filtration Rate > 60 mL/min (>60) Glucose Level 75 MG/DL (74-106) Calcium Level 9.8 MG/DL (8.5-10.1) Total Bilirubin 0.1 MG/DL (0.2-1.0) L Aspartate Amino Transf (AST/SGOT) 34 U/L (15-37) Alanine Aminotransferase (ALT/SGPT) 36 U/L (12-78) Alkaline Phosphatase 118 U/L (46-116) H Total Creatine Kinase 66 U/L (26-308) Creatine Kinase MB 1.2 NG/ML (0.0-3.6) Creatine Kinase MB Relative Index 1.8 Troponin I 0.000 ng/mL (0.000-0.056) Total Protein 9.7 G/DL (6.4-8.2) H Albumin 3.9 G/DL (3.4-5.0) Globulin 5.8 g/dL Albumin/Globulin Ratio 0.7 (1.0-2.7) L Salicylates Level 6.1 ug/mL (2.8-20) Acetaminophen Level < 2 MCG/ML (10-30) L Serum Alcohol < 3 mg/dL Urine Color Pale yellow Urine Appearance Clear Urine pH 6 (4.5-8.0) Urine Specific [place] 1.010 (1.005-1.035) Urine Protein Negative (NEGATIVE) Urine Glucose (UA) Negative (NEGATIVE) Urine Ketones Negative (NEGATIVE) Urine Occult Blood 2+ (NEGATIVE) H Urine Nitrite Negative (NEGATIVE) Urine Bilirubin Negative (NEGATIVE) Urine Urobilinogen Normal MG/DL (0.0-1.0) Urine Leukocyte Esterase Negative (NEGATIVE) Urine RBC 2-4 /HPF (0 - 2) H Urine WBC 0-2 /HPF (0 - 2) Urine Squamous Epithelial Cells Occasional /LPF Urine Bacteria Occasional /HPF (NONE) Urine Opiates Screen Negative (NEGATIVE) Urine Barbiturates Screen Negative (NEGATIVE) Phencyclidine (PCP) Screen Negative (NEGATIVE) Urine Amphetamines Screen Negative (NEGATIVE) Urine Benzodiazepines Screen Negative (NEGATIVE) Urine Cocaine Screen Negative (NEGATIVE) Urine Marijuana (THC) Screen Negative (NEGATIVE) Height (Feet): 5 Height (Inches): 9.00 Weight (Pounds): 134 Medications Current Medications Medications (Trade) Dose Ordered Sig/Luis Daniel Route PRN Reason Start Time Stop Time Status Last Admin Dose Admin Acetaminophen (Tylenol) 650 mg Q4H PRN ORAL fever (temp>100.5F) 11/07/17 11:45 12/07/17 11:44 Al Hydroxide/Mg Hydroxide (Mylanta II) 30 ml Q6H PRN ORAL dyspepsia 11/07/17 11:45 12/07/17 11:44 Dextrose (Dextrose 50%) STAT PRN IV Hypoglycemia 11/07/17 11:45 12/07/17 11:44 Duloxetine HCl (Cymbalta) 30 mg DAILY ORAL 11/08/17 09:00 12/08/17 08:59 Lorazepam (Ativan 2mg/ml 1ml) 0.5 mg Q4H PRN IV For Anxiety 11/07/17 11:45 11/14/17 11:44 Ondansetron HCl (Zofran) 4 mg Q6H PRN IVP Nausea & Vomiting 11/07/17 11:45 12/07/17 11:44 Polyethylene Glycol (Miralax) 17 gm HSPRN PRN ORAL Constipation 11/07/17 11:45 12/07/17 11:44 Quetiapine Fumarate (SEROquel) 50 mg BEDTIME ORAL 11/07/17 21:00 12/07/17 20:59 Zolpidem Tartrate (Ambien) 5 mg HSPRN PRN ORAL Insomnia 11/07/17 11:45 11/14/17 11:44 Assessment/Plan Problem List: (1) Depression with somatization ICD Codes: F32.9 - Major depressive disorder, single episode, unspecified; F45.0 - Somatization disorder SNOMED: [id number], [id number] Assessment/Plan psychiatry evaluation pt/ot TEENA OLIVER Nov 07, 2017 16:24
[2017-11-07 20:00] VITALS: BP 122/79
[2017-11-07] MEDS: LORazepam Inj 2mg/ml 1ml IV PRN (20:48)
--- NOTE | 2017-11-07 23:06 | Consultation ---
History of Present Illness General Chief Complaint: General Complaint Present Illness HPI 51 yo f with hx of depression and anxiety the pt is anxious and stated that she has secure and numbness in her limbs, the pt ran out of her meds the pt denied si/hi the pt was assessed in er Allergies: Coded Allergies: ACETAMINOPHEN (Verified Allergy, Unknown, 10/28/17) HYDROCODONE (Verified Allergy, Unknown, 10/28/17) HYDROMORPHONE (Unverified Allergy, Unknown, 11/07/17) Medication History Scheduled Diphenhydramine Hcl (Benadryl Allergy), 25 MG PO Q6HR Enalapril Maleate (Enalapril Maleate), 5 MG MC DAILY, (Reported) Escitalopram Oxalate* (Lexapro*), 20 MG ORAL DAILY, (Reported) Escitalopram Oxalate* (Lexapro*), 20 MG ORAL DAILY Furosemide (Furosemide), 20 MG ORAL DAILY, (Reported) Ibuprofen* (Motrin*), 400 MG ORAL THREE TIMES A DAY Methocarbamol* (Robaxin-750*), 750 MG PO QID Pantoprazole (Pantoprazole), 40 MG ORAL DAILY, (Reported) Quetiapine Fumarate (Quetiapine Fumarate), 200 MG ORAL BEDTIME, (Reported) Spironolact/Hydrochlorothiazid (Spironolactone-Hctz 25-25 Tab), 1 TAB ORAL DAILY , (Reported) Miscellaneous Medications Docusate Sodium (Dok), 100 MG PO, (Reported) Patient History Limited by: medical condition History Provided By: Patient, Medical Record, PMD Healthcare decision maker Resuscitation status Full Code Advanced Directive on File No Past Medical/Surgical History Past Medical/Surgical History: (1) Inguinal hernia (2) Abdominal pain (3) Weakness (4) Depression with somatization Review of Systems Psychiatric: Reports: prior hx, anxiety, depressed feelings, emotional problems Physical Exam Neurologic: alert, oriented x 3, responsive, normal mood/affect Last 24 Hour Vital Signs Date Time Temp Pulse Resp B/P (MAP) Pulse Ox O2 Delivery O2 Flow Rate FiO2 11/07/17 20:00 99.9 95 18 122/79 97 11/07/17 16:16 97.7 111 20 136/98 99 Nasal Cannula 11/07/17 13:27 100.0 99 20 135/82 100 Room Air 11/07/17 12:11 101 18 149/92 100 11/07/17 09:38 98.9 99 14 153/87 100 Room Air 11/07/17 08:41 97.9 104 18 157/94 99 Room Air Intake and Output 11/07/17 11/08/17 19:00 07:00 Intake Total 2000 ml Balance 2000 ml Intake Oral 1500 ml IV Total 500 ml # Voids 1 Laboratory Tests Test 11/07/17 09:25 11/07/17 10:00 11/07/17 17:22 White Blood Count 6.1 K/UL (4.8-10.8) Red Blood Count 4.26 M/UL (4.20-5.40) Hemoglobin 13.6 G/DL (12.0-16.0) Hematocrit 40.9 % (37.0-47.0) Mean Corpuscular Volume 96 FL (80-99) Mean Corpuscular Hemoglobin 31.9 PG (27.0-31.0) H Mean Corpuscular Hemoglobin Concent 33.2 G/DL (32.0-36.0) Red Cell Distribution Width 12.5 % (11.6-14.8) Platelet Count 268 K/UL (150-450) Mean Platelet Volume 6.7 FL (6.5-10.1) Neutrophils (%) (Auto) 56.6 % (45.0-75.0) Lymphocytes (%) (Auto) 29.9 % (20.0-45.0) Monocytes (%) (Auto) 7.7 % (1.0-10.0) Eosinophils (%) (Auto) 3.5 % (0.0-3.0) H Basophils (%) (Auto) 2.3 % (0.0-2.0) H Sodium Level 136 MMOL/L (136-145) Potassium Level 4.4 MMOL/L (3.5-5.1) Chloride Level 102 MMOL/L (98-107) Carbon Dioxide Level 27 MMOL/L (21-32) Anion Gap 7 mmol/L (5-15) Blood Urea Nitrogen 12 mg/dL (7-18) Creatinine 1.0 MG/DL (0.55-1.30) Estimat Glomerular Filtration Rate > 60 mL/min (>60) Glucose Level 75 MG/DL (74-106) Calcium Level 9.8 MG/DL (8.5-10.1) Total Bilirubin 0.1 MG/DL (0.2-1.0) L Aspartate Amino Transf (AST/SGOT) 34 U/L (15-37) Alanine Aminotransferase (ALT/SGPT) 36 U/L (12-78) Alkaline Phosphatase 118 U/L (46-116) H Total Creatine Kinase 66 U/L (26-308) Creatine Kinase MB 1.2 NG/ML (0.0-3.6) Creatine Kinase MB Relative Index 1.8 Troponin I 0.000 ng/mL (0.000-0.056) Total Protein 9.7 G/DL (6.4-8.2) H Albumin 3.9 G/DL (3.4-5.0) Globulin 5.8 g/dL Albumin/Globulin Ratio 0.7 (1.0-2.7) L Salicylates Level 6.1 ug/mL (2.8-20) Acetaminophen Level < 2 MCG/ML (10-30) L Serum Alcohol < 3 mg/dL Urine Color Pale yellow Urine Appearance Clear Urine pH 6 (4.5-8.0) Urine Specific [place] 1.010 (1.005-1.035) Urine Protein Negative (NEGATIVE) Urine Glucose (UA) Negative (NEGATIVE) Urine Ketones Negative (NEGATIVE) Urine Occult Blood 2+ (NEGATIVE) H Urine Nitrite Negative (NEGATIVE) Urine Bilirubin Negative (NEGATIVE) Urine Urobilinogen Normal MG/DL (0.0-1.0) Urine Leukocyte Esterase Negative (NEGATIVE) Urine RBC 2-4 /HPF (0 - 2) H Urine WBC 0-2 /HPF (0 - 2) Urine Squamous Epithelial Cells Occasional /LPF Urine Bacteria Occasional /HPF (NONE) Urine Opiates Screen Negative (NEGATIVE) Urine Barbiturates Screen Negative (NEGATIVE) Phencyclidine (PCP) Screen Negative (NEGATIVE) Urine Amphetamines Screen Negative (NEGATIVE) Urine Benzodiazepines Screen Negative (NEGATIVE) Urine Cocaine Screen Negative (NEGATIVE) Urine Marijuana (THC) Screen Negative (NEGATIVE) Ammonia 19 umol/L (11-32) Height (Feet): 5 Height (Inches): 9.00 Weight (Pounds): 134 Medications Current Medications Medications (Trade) Dose Ordered Sig/Luis Daniel Route PRN Reason Start Time Stop Time Status Last Admin Dose Admin Acetaminophen (Tylenol) 650 mg Q4H PRN ORAL fever (temp>100.5F) 11/07/17 11:45 12/07/17 11:44 Al Hydroxide/Mg Hydroxide (Mylanta II) 30 ml Q6H PRN ORAL dyspepsia 11/07/17 11:45 12/07/17 11:44 Dextrose (Dextrose 50%) STAT PRN IV Hypoglycemia 11/07/17 11:45 12/07/17 11:44 Duloxetine HCl (Cymbalta) 30 mg DAILY ORAL 11/08/17 09:00 12/08/17 08:59 Lorazepam (Ativan 2mg/ml 1ml) 0.5 mg Q4H PRN IV For Anxiety 11/07/17 11:45 11/14/17 11:44 11/07/17 20:48 Ondansetron HCl (Zofran) 4 mg Q6H PRN IVP Nausea & Vomiting 11/07/17 11:45 12/07/17 11:44 Polyethylene Glycol (Miralax) 17 gm HSPRN PRN ORAL Constipation 11/07/17 11:45 12/07/17 11:44 Quetiapine Fumarate (SEROquel) 50 mg BEDTIME ORAL 11/07/17 21:00 12/07/17 20:59 11/07/17 20:44 Zolpidem Tartrate (Ambien) 5 mg HSPRN PRN ORAL Insomnia 11/07/17 11:45 11/14/17 11:44 Assessment/Plan Status: stable Assessment/Plan mdd anxiety d/o -cymbalta 30mg qhs -seroquel 50mg Alla Galvan M.D. Nov 07, 2017 23:06
[2017-11-07 23:42] VITALS: BP 119/76
--- NOTE | 2017-11-07 23:43 | History & Physical ---
History and Physical History & Physicial H & P Dictated Job # Virgilio Carvajal MD Nov 07, 2017 23:43
[2017-11-08 04:00] VITALS: BP_SYST 109; BP_SYST 138; BP_DIAS 58; BP_DIAS 80
[2017-11-08] MEDS: LORazepam Inj 2mg/ml 1ml IV PRN ×3 (04:06→19:16)
[2017-11-08 07:24] LABS: BASOPHILS % (AUTO) 1.9 % (0.0-2.0); EOSINOPHILS % (AUTO) 7.1 % (0.0-3.0); LYMPHOCYTES % (AUTO) 34.8 % (20.0-45.0); MEAN CORPUSCULAR HEMOGLOBIN 31.4 PG (27.0-31.0); MEAN CORPUSCULAR HGB CONC 33.1 G/DL (32.0-36.0); MEAN CORPUSCULAR VOLUME 95 FL (80-99); MEAN PLATELET VOLUME 6.3 FL (6.5-10.1); MONOCYTES % (AUTO) 11.6 % (1.0-10.0); NEUTROPHILS % (AUTO) 44.6 % (45.0-75.0); PLATELET COUNT 329 K/UL (150-450); RED BLOOD COUNT 3.53 M/UL (4.20-5.40); RED CELL DISTRIBUTION WIDTH 12.4 % (11.6-14.8)
[2017-11-08 07:31] LABS: PROTHROMBIN TIME 10.1 SEC (9.30-11.50)
[2017-11-08 07:51] LABS: ALANINE AMINOTRANSFERASE 38 U/L (12-78); ALBUMIN/GLOBULIN RATIO 0.7 (1.0-2.7); ANION GAP 6 mmol/L (5-15); ASPARTATE AMINO TRANSFERASE 40 U/L (15-37); CALCIUM 8.8 MG/DL (8.5-10.1); CARBON DIOXIDE 30 MMOL/L (21-32); CHLORIDE 104 MMOL/L (98-107); CHOLESTEROL 118 MG/DL (< 200); CHOLESTEROL/HDL RATIO 2.6 (3.3-4.4); CREATININE 0.8 MG/DL (0.55-1.30); GLOMERULAR FILTRATION RATE > 60 mL/min (>60); POTASSIUM 3.7 MMOL/L (3.5-5.1); SODIUM 140 MMOL/L (136-145); THYROID STIMULATING HORMONE 0.296 uiU/mL (0.358-3.740); TOTAL PROTEIN 7.6 G/DL (6.4-8.2)
[2017-11-08 07:56] LABS: MAGNESIUM 1.6 MG/DL (1.8-2.4); PHOSPHORUS 2.7 MG/DL (2.5-4.9)
[2017-11-08 08:00] VITALS: BP 122/78
[2017-11-08] MEDS: DULoxetine 30mg cap ORAL SCH (09:57)
--- NOTE | 2017-11-08 11:27 | Cardiology Report ---
APPROVED REPORT EKG Measurement Heart [id number] Normal sinus rhythm Biatrial enlargement iNCOMPLETE rbbb Septal infarct, age undetermined Abnormal ECG
[2017-11-08 12:00] VITALS: BP 137/85
[2017-11-08] MEDS ORDERED: LORazepam Inj 2mg/ml 1ml IV ONE (12:30)
--- NOTE | 2017-11-08 12:31 | Internal Med Progress Note ---
Subjective Physician Name Virgilio Carvajal Attending Physician Virgilio Carvajal MD Current Medications Medications (Trade) Dose Ordered Sig/Luis Daniel Route PRN Reason Start Time Stop Time Status Last Admin Dose Admin Acetaminophen (Tylenol) 650 mg Q4H PRN ORAL fever (temp>100.5F) 11/07/17 11:45 12/07/17 11:44 11/08/17 09:59 Al Hydroxide/Mg Hydroxide (Mylanta II) 30 ml Q6H PRN ORAL dyspepsia 11/07/17 11:45 12/07/17 11:44 Dextrose (Dextrose 50%) STAT PRN IV Hypoglycemia 11/07/17 11:45 12/07/17 11:44 Duloxetine HCl (Cymbalta) 30 mg DAILY ORAL 11/08/17 09:00 12/08/17 08:59 11/08/17 09:57 Gabapentin (Neurontin) 600 mg THREE TIMES A DAY ORAL 11/08/17 09:00 12/08/17 08:59 11/08/17 09:58 Lorazepam (Ativan 2mg/ml 1ml) 0.5 mg Q4H PRN IV For Anxiety 11/07/17 11:45 11/14/17 11:44 11/08/17 09:58 Lorazepam (Ativan 2mg/ml 1ml) 2 mg ONCE ONCE IV 11/08/17 12:30 11/08/17 12:31 Magnesium Oxide (Mag-Ox 400mg) 400 mg THREE TIMES A DAY ORAL 11/08/17 13:00 12/08/17 12:59 Ondansetron HCl (Zofran) 4 mg Q6H PRN IVP Nausea & Vomiting 11/07/17 11:45 12/07/17 11:44 Polyethylene Glycol (Miralax) 17 gm HSPRN PRN ORAL Constipation 11/07/17 11:45 12/07/17 11:44 Quetiapine Fumarate (SEROquel) 50 mg BEDTIME ORAL 11/07/17 21:00 12/07/17 20:59 11/07/17 20:44 Zolpidem Tartrate (Ambien) 5 mg HSPRN PRN ORAL Insomnia 11/07/17 11:45 11/14/17 11:44 Allergies: Coded Allergies: ACETAMINOPHEN (Verified Allergy, Unknown, 10/28/17) HYDROCODONE (Verified Allergy, Unknown, 10/28/17) HYDROMORPHONE (Unverified Allergy, Unknown, 11/07/17) Subjective awake, alert, responsive, No CP or SOB, No N/V Objective Last Vital Signs Date Time Temp Pulse Resp B/P (MAP) Pulse Ox O2 Delivery O2 Flow Rate FiO2 11/08/17 08:00 98.6 87 20 122/78 100 11/07/17 16:16 Nasal Cannula Laboratory Tests Test 11/07/17 17:22 11/08/17 06:30 Ammonia 19 umol/L (11-32) White Blood Count 5.0 K/UL (4.8-10.8) Red Blood Count 3.53 M/UL (4.20-5.40) L Hemoglobin 11.1 G/DL (12.0-16.0) L Hematocrit 33.5 % (37.0-47.0) L Mean Corpuscular Volume 95 FL (80-99) Mean Corpuscular Hemoglobin 31.4 PG (27.0-31.0) H Mean Corpuscular Hemoglobin Concent 33.1 G/DL (32.0-36.0) Red Cell Distribution Width 12.4 % (11.6-14.8) Platelet Count 329 K/UL (150-450) Mean Platelet Volume 6.3 FL (6.5-10.1) L Neutrophils (%) (Auto) 44.6 % (45.0-75.0) L Lymphocytes (%) (Auto) 34.8 % (20.0-45.0) Monocytes (%) (Auto) 11.6 % (1.0-10.0) H Eosinophils (%) (Auto) 7.1 % (0.0-3.0) H Basophils (%) (Auto) 1.9 % (0.0-2.0) Prothrombin Time 10.1 SEC (9.30-11.50) Prothromb Time International Ratio 1.0 (0.9-1.1) Activated Partial Thromboplast Time 26 SEC (23-33) Sodium Level 140 MMOL/L (136-145) Potassium Level 3.7 MMOL/L (3.5-5.1) Chloride Level 104 MMOL/L (98-107) Carbon Dioxide Level 30 MMOL/L (21-32) Anion Gap 6 mmol/L (5-15) Blood Urea Nitrogen 11 mg/dL (7-18) Creatinine 0.8 MG/DL (0.55-1.30) Estimat Glomerular Filtration Rate > 60 mL/min (>60) Glucose Level 71 MG/DL (74-106) L Calcium Level 8.8 MG/DL (8.5-10.1) Phosphorus Level 2.7 MG/DL (2.5-4.9) Magnesium Level 1.6 MG/DL (1.8-2.4) L Total Bilirubin 0.1 MG/DL (0.2-1.0) L Aspartate Amino Transf (AST/SGOT) 40 U/L (15-37) H Alanine Aminotransferase (ALT/SGPT) 38 U/L (12-78) Alkaline Phosphatase 103 U/L (46-116) Total Protein 7.6 G/DL (6.4-8.2) Albumin 3.0 G/DL (3.4-5.0) L Globulin 4.6 g/dL Albumin/Globulin Ratio 0.7 (1.0-2.7) L Triglycerides Level 81 MG/DL (30-150) Cholesterol Level 118 MG/DL (< 200) LDL Cholesterol 58 mg/dL (<100) HDL Cholesterol 46 MG/DL (40-60) Cholesterol/HDL Ratio 2.6 (3.3-4.4) L Thyroid Stimulating Hormone (TSH) 0.296 uiU/mL (0.358-3.740) Objective General: No acute distress, awake and alert HEENT: NCAT, sclera anicteric, PERRL, EOMI. Neck: Supple, no significant jugular venous distention, Lungs: Good inspiratory effort, clear to auscultation bilaterally, no Wheeze or Rales. Heart: Regular rate and rhythm, normal S1/S2, no murmurs Abdomen: soft, nontender, nondistended. Normoactive bowel sounds. / Rectal: Refused and deferred. Extremities: No Cyanosis , clubbing or edema. Neuro: A&O x 3, Able to move all extremities, lower extremities weakness. Skin: warm, no rashes or lesions Psych: Normal mood and affect Assessment/Plan Assessment/Plan (1) Inguinal hernia (2) Abdominal pain (3) Lower extremities weakness (4) Depression with somatization (5) HTN Plan: MRI of Lumbar spine Patient refused PT evaluation F/U with Dr. Gorman Recommendation DC Planning soon Full code Heparin SQ Virgilio Carvajal MD Nov 08, 2017 12:31
[2017-11-08] MEDS: Magnesium Oxide 400mg tab ORAL SCH ×2 (13:00→18:00)
[2017-11-08 16:00] VITALS: BP 135/85
--- NOTE | 2017-11-08 16:33 | Pulmonology Progress Note ---
Assessment/Plan Problems: (1) Depression with somatization Assessment/Plan f/u psych recommendations pt/ot all noted social service evaluation. Subjective ROS Limited/Unobtainable: No Constitutional: Reports: no symptoms HEENT: Repors: no symptoms Respiratory: Reports: no symptoms Cardiovascular: Reports: no symptoms Allergies: Coded Allergies: ACETAMINOPHEN (Verified Allergy, Unknown, 10/28/17) HYDROCODONE (Verified Allergy, Unknown, 10/28/17) HYDROMORPHONE (Unverified Allergy, Unknown, 11/07/17) Objective Last 24 Hour Vital Signs Date Time Temp Pulse Resp B/P (MAP) Pulse Ox O2 Delivery O2 Flow Rate FiO2 11/08/17 12:00 98.2 102 20 137/85 100 11/08/17 08:00 98.6 87 20 122/78 100 11/08/17 04:00 97.2 73 18 109/58 100 11/07/17 23:42 98.6 90 18 119/76 96 11/07/17 20:00 99.9 95 18 122/79 97 General Appearance: WD/WN HEENT: normocephalic, atraumatic Respiratory/Chest: chest wall non-tender, lungs clear Cardiovascular: normal peripheral pulses, normal rate Abdomen: normal bowel sounds, soft, non tender Extremities: no clubbing Skin: no lesions Neurologic/Psychiatric: tower hand II-XII grossly normal Lymphatic: no neck adenopathy Laboratory Tests 11/07/17 17:22: Ammonia 19 11/08/17 06:30: White Blood Count 5.0, Red Blood Count 3.53L, Hemoglobin 11.1L, Hematocrit 33.5L , Mean Corpuscular Volume 95, Mean Corpuscular Hemoglobin 31.4H, Mean Corpuscular Hemoglobin Concent 33.1, Red Cell Distribution Width 12.4, Platelet Count 329, Mean Platelet Volume 6.3L, Neutrophils (%) (Auto) 44.6L, Lymphocytes (%) (Auto) 34.8, Monocytes (%) (Auto) 11.6H, Eosinophils (%) (Auto) 7.1H, Basophils (%) (Auto) 1.9, Prothrombin Time 10.1, Prothromb Time International Ratio 1.0, Activated Partial Thromboplast Time 26, Sodium Level 140, Potassium Level 3.7, Chloride Level 104, Carbon Dioxide Level 30, Anion Gap 6, Blood Urea Nitrogen 11, Creatinine 0.8, Estimat Glomerular Filtration Rate > 60, Glucose Level 71L, Calcium Level 8.8, Phosphorus Level 2.7, Magnesium Level 1.6L, Total Bilirubin 0.1L, Aspartate Amino Transf (AST/SGOT) 40H, Alanine Aminotransferase (ALT/SGPT) 38, Alkaline Phosphatase 103, Total Protein 7.6, Albumin 3.0L, Globulin 4.6, Albumin/Globulin Ratio 0.7L, Triglycerides Level 81, Cholesterol Level 118, LDL Cholesterol 58, HDL Cholesterol 46, Cholesterol/HDL Ratio 2.6L, Thyroid Stimulating Hormone (TSH) 0.296L Current Medications Medications (Trade) Dose Ordered Sig/Luis Daniel Route PRN Reason Start Time Stop Time Status Last Admin Dose Admin Acetaminophen (Tylenol) 650 mg Q4H PRN ORAL fever (temp>100.5F) 11/07/17 11:45 12/07/17 11:44 11/08/17 09:59 Al Hydroxide/Mg Hydroxide (Mylanta II) 30 ml Q6H PRN ORAL dyspepsia 11/07/17 11:45 12/07/17 11:44 Dextrose (Dextrose 50%) STAT PRN IV Hypoglycemia 11/07/17 11:45 12/07/17 11:44 Duloxetine HCl (Cymbalta) 30 mg DAILY ORAL 11/08/17 09:00 12/08/17 08:59 11/08/17 09:57 Gabapentin (Neurontin) 600 mg THREE TIMES A DAY ORAL 11/08/17 09:00 12/08/17 08:59 11/08/17 09:58 Lorazepam (Ativan 2mg/ml 1ml) 0.5 mg Q4H PRN IV For Anxiety 11/07/17 11:45 11/14/17 11:44 11/08/17 09:58 Magnesium Oxide (Mag-Ox 400mg) 400 mg THREE TIMES A DAY ORAL 11/08/17 13:00 12/08/17 12:59 Ondansetron HCl (Zofran) 4 mg Q6H PRN IVP Nausea & Vomiting 11/07/17 11:45 12/07/17 11:44 Polyethylene Glycol (Miralax) 17 gm HSPRN PRN ORAL Constipation 11/07/17 11:45 12/07/17 11:44 Quetiapine Fumarate (SEROquel) 50 mg BEDTIME ORAL 11/07/17 21:00 12/07/17 20:59 11/07/17 20:44 Zolpidem Tartrate (Ambien) 5 mg HSPRN PRN ORAL Insomnia 11/07/17 11:45 11/14/17 11:44 TEENA OLIVER Nov 08, 2017 16:33
--- NOTE | 2017-11-08 19:30 | Neurology Progress Note ---
Interim History Interim History ROS Limited/Unobtainable: No Objective Physical Exam Last Vital Signs Date Time Temp Pulse Resp B/P (MAP) Pulse Ox O2 Delivery O2 Flow Rate FiO2 11/08/17 16:00 98.1 109 20 135/85 100 11/07/17 16:16 Nasal Cannula Laboratory Tests Test 11/08/17 06:30 White Blood Count 5.0 K/UL (4.8-10.8) Red Blood Count 3.53 M/UL (4.20-5.40) L Hemoglobin 11.1 G/DL (12.0-16.0) L Hematocrit 33.5 % (37.0-47.0) L Mean Corpuscular Volume 95 FL (80-99) Mean Corpuscular Hemoglobin 31.4 PG (27.0-31.0) H Mean Corpuscular Hemoglobin Concent 33.1 G/DL (32.0-36.0) Red Cell Distribution Width 12.4 % (11.6-14.8) Platelet Count 329 K/UL (150-450) Mean Platelet Volume 6.3 FL (6.5-10.1) L Neutrophils (%) (Auto) 44.6 % (45.0-75.0) L Lymphocytes (%) (Auto) 34.8 % (20.0-45.0) Monocytes (%) (Auto) 11.6 % (1.0-10.0) H Eosinophils (%) (Auto) 7.1 % (0.0-3.0) H Basophils (%) (Auto) 1.9 % (0.0-2.0) Prothrombin Time 10.1 SEC (9.30-11.50) Prothromb Time International Ratio 1.0 (0.9-1.1) Activated Partial Thromboplast Time 26 SEC (23-33) Sodium Level 140 MMOL/L (136-145) Potassium Level 3.7 MMOL/L (3.5-5.1) Chloride Level 104 MMOL/L (98-107) Carbon Dioxide Level 30 MMOL/L (21-32) Anion Gap 6 mmol/L (5-15) Blood Urea Nitrogen 11 mg/dL (7-18) Creatinine 0.8 MG/DL (0.55-1.30) Estimat Glomerular Filtration Rate > 60 mL/min (>60) Glucose Level 71 MG/DL (74-106) L Calcium Level 8.8 MG/DL (8.5-10.1) Phosphorus Level 2.7 MG/DL (2.5-4.9) Magnesium Level 1.6 MG/DL (1.8-2.4) L Total Bilirubin 0.1 MG/DL (0.2-1.0) L Aspartate Amino Transf (AST/SGOT) 40 U/L (15-37) H Alanine Aminotransferase (ALT/SGPT) 38 U/L (12-78) Alkaline Phosphatase 103 U/L (46-116) Total Protein 7.6 G/DL (6.4-8.2) Albumin 3.0 G/DL (3.4-5.0) L Globulin 4.6 g/dL Albumin/Globulin Ratio 0.7 (1.0-2.7) L Triglycerides Level 81 MG/DL (30-150) Cholesterol Level 118 MG/DL (< 200) LDL Cholesterol 58 mg/dL (<100) HDL Cholesterol 46 MG/DL (40-60) Cholesterol/HDL Ratio 2.6 (3.3-4.4) L Thyroid Stimulating Hormone (TSH) 0.296 uiU/mL (0.358-3.740) Impression/Recommendations Problems: (1) Psychosomatic disorder Status: stable, unchanged Recommendations #[id number] PAOLO TAPIA Nov 08, 2017 19:30
[2017-11-08 20:00] VITALS: BP 131/80
--- NOTE | 2017-11-08 22:45 | History and Physical Report ---
DATE OF ADMISSION: 11/07/2017 CHIEF COMPLAINT: Altered mental status. HISTORY OF PRESENT ILLNESS: This is a 51-year-old female with past medical history significant for psychiatric disorder as well as hypertension? and oncological cancer, which was not confirmed, who has presented to the hospital complaining about unable to walk, cannot feel her leg. She has been taking a prescribed muscle relaxer in the past and she has been getting progressively worsening. She had extensive workup done in the past and she is scheduled to see a neurologist as well as oncologist as an outpatient, however, she stated that her symptoms got progressively worse and decided to come to the hospital. Shortly after initial evaluation in the emergency, the patient was admitted to the hospital with change of mental status as well as lower extremity weakness. PAST MEDICAL HISTORY/PAST SURGICAL HISTORY: As above, history of seizure disorder?, history of hypertension, ascites, pelvic mass, and gynecological cancer. MEDICATIONS: Medications at home is significant for Benadryl, docusate, enalapril, Lexapro, furosemide, ibuprofen, Robaxin, Protonix, Seroquel, spironolactone and hydrochlorothiazide. ALLERGIES: Acetaminophen, Tylenol, codeine, hydrocodone, and morphine. SOCIAL HISTORY: The patient denies any smoking, alcohol, or drugs. FAMILY HISTORY: Noncontributory. REVIEW OF SYSTEMS: Mostly as above. Complains of weakness of lower extremities. Denies any hemoptysis or hematochezia. Denies any bright red blood per rectum. Denies any loss of consciousness. Denies any fall. Denies any head trauma. PHYSICAL EXAMINATION: GENERAL: The patient is awake and responsive, no acute distress. VITAL SIGNS: On admission, temperature 97.9 degrees, pulse of 104, respirations 18, and blood pressure 157/94. HEAD AND NECK: Pupils are equal and reactive to light. Extraocular movements are intact. Neck was supple. No JVD. LUNGS: Good air entry. No wheezing or rales. HEART: S1 and S2. Regular rhythm. No gallops. ABDOMEN: Soft, nondistended, and nontender. No rebound tenderness. Right pelvic area has a reducible mass, most likely hernia. EXTREMITIES: No cyanosis, clubbing, or edema. NEUROLOGIC: Cranial nerves II through XII grossly intact. Motor strength is 5/5 in the upper extremities. Lower extremities, weaker. Gait was unable to assess due to the patient's status, unable to stand up. LABORATORY AND DIAGNOSTIC DATA: On admission from the ER, WBC at 6.1, hemoglobin 13, hematocrit 40, and platelets 268. Sodium 136, potassium 4.4, chloride 102, bicarbonate 27, BUN 12, creatinine 1.0, GFR is greater than 60, and glucose is 75. Calcium is 9.1. Total bilirubin of 0.1, AST of 34, and ALT of 36. Albumin 3.9. First troponin less than 0.00. Urine drug screen is unremarkable. Urinalysis, +2 blood and 2 to 4 RBCs, otherwise all negative. PT of 10, INR 1.0, and PTT of 26. The patient had an MRI of the brain done. No acute mass effect or intracranial . The patient has sinus disease. The patient had a duplex of lower extremity pattern deep vein system bilaterally, no evidence of thrombosis. ASSESSMENT: 1. Lower extremity weakness. 2. Depression and anxiety. 3. Right inguinal hernia. 4. Somatization. 5. History of ascites. 6. Hypertension. PLAN: Admit the patient to Med/Surg. We will follow up laboratory. Consider to get an MRI of the lumbar spine. Discussed with the psychiatrist, Dr. Gorman from Psychiatry as well as Dr. Lopez, Pulmonary, Critical Care and we will monitor laboratory in the morning. Virgilio Carvajal M.D. DR: JAIME JOB#: [id number] CC:
--- NOTE | 2017-11-08 23:00 | Progress Note ---
DATE: 11/08/2017 SUBJECTIVE: The patient is complaining of numbness, having seizures, not able to move or walk. It appears to be one of intermittent episodes as chronic situation that she is expressing similar symptoms, she has had four ER visits at the medical center. Other laboratory workup so far has been negative. The patient is medical team as well as psychiatrist to do diagnostic and therapeutic procedure, and is also stating that there is a mass in her pelvis and it is cancer. Dr. Carvajal and I examined her. It appears to be an inguinal hernia. Dr. Carvajal will also order an MRI to rule out any mass, malignancy, or abnormalities. The patient is also asking our community mental health social worker to have the hospital reimburse her for some services that she is going to get outside of the hospital and asking our community mental health social worker to contact her daughter. The patient is also asking for pain medication. MENTAL STATUS EXAMINATION: The patient is alert and oriented to time, self, place, and situation she is in. Mood is neutral to irritable. Affect is full range. Congruent mood and appropriate. Thought process is linear. Thought content, no suicidal or homicidal ideation. No delusions. No AVH. Insight and judgment is fair. The patient has manipulative behaviors. ASSESSMENT: The patient presented with symptoms that are consistent with either to receive outpatient or other services after discharge. PLAN: 1. The patient will be continued on Neurontin 600 mg three times a day, Seroquel 50 mg at bedtime and Cymbalta 30 mg in the morning. 2. The patient should be discharged after receiving MRI per Psychiatry recommendation. Alla Gorman M.D. DR: TREVOR JOB#: [id number] CC:
[2017-11-09] VITALS: BP 101/64
[2017-11-09] MEDS: LORazepam Inj 2mg/ml 1ml IV PRN ×5 (02:00→21:48)
[2017-11-09 04:00] VITALS: BP 109/60
[2017-11-09 08:00] VITALS: BP 131/72
[2017-11-09] MEDS: Magnesium Oxide 400mg tab ORAL SCH ×3 (08:41→17:09)
[2017-11-09] MEDS: DULoxetine 30mg cap ORAL SCH (08:41)
--- NOTE | 2017-11-09 10:31 | Diagnostic Imaging Report ---
Indication: Lower extremity weakness Technique: MRI of the lumbar spine was performed without and with administration of intravascular contrast and the following sequences were obtained: Pre-and postcontrast imaging in the axial and sagittal planes. Comparison: CT abdomen and pelvis 10/27/17 Findings: For the purposes of counting on this examination only, the last well formed disc will be labeled the L5/S1 level. There is straightening of the lumbar lordosis. Lumbar alignment is otherwise within normal limits. The distal thoracic spinal cord and conus medullaris are normal in size and signal intensity. The conus medullaris terminates at the L1 level. At the L1/L2 level, there is no evidence of central canal or neuroforaminal stenosis. There is no disc protrusion or extrusion. At the L2/L3 level, there is no evidence of central canal or neuroforaminal stenosis. There is no disc protrusion or extrusion. At the L3/L4 level, there is disc desiccation with moderate disc height loss and a minimal disc bulge but no significant central canal stenosis. There is no significant neuroforaminal stenosis. There is mild degenerative facet arthropathy. At the L4/L5 level, there is disc desiccation with moderate to severe disc height loss and a mild disc bulge but no significant central canal stenosis. There is mild left neuroforaminal narrowing. Degenerative facet arthropathy is noted. Degenerative endplate signal changes are present. At the L5/S1 level, there is disc desiccation with mild disc height loss and a mild disc bulge greater on the right than on the left. Moderate bilateral neuroforaminal stenosis is present. There is no significant central canal stenosis. There is no abnormal postcontrast enhancement. Paravertebral soft tissues are grossly unremarkable. Impression: No acute abnormality identified. No gross abnormal postcontrast enhancement. Clinical correlation recommended. Degenerative lumbar spondylosis involving L3/L4, L4/L5 and L5/S1 as above.
[2017-11-09 12:00] VITALS: BP 128/74
[2017-11-09 16:15] VITALS: BP 136/80
--- NOTE | 2017-11-09 19:37 | Internal Med Progress Note ---
Subjective Physician Name Virgilio Carvajal Attending Physician Virgilio Carvajal MD Current Medications Medications (Trade) Dose Ordered Sig/Luis Daniel Route PRN Reason Start Time Stop Time Status Last Admin Dose Admin Acetaminophen (Tylenol) 650 mg Q4H PRN ORAL Fever/Headache/Mild Pain 11/09/17 13:30 12/09/17 13:29 Al Hydroxide/Mg Hydroxide (Mylanta II) 30 ml Q6H PRN ORAL dyspepsia 11/07/17 11:45 12/07/17 11:44 Dextrose (Dextrose 50%) STAT PRN IV Hypoglycemia 11/07/17 11:45 12/07/17 11:44 Duloxetine HCl (Cymbalta) 30 mg DAILY ORAL 11/08/17 09:00 12/08/17 08:59 11/09/17 08:41 Gabapentin (Neurontin) 600 mg THREE TIMES A DAY ORAL 11/08/17 09:00 12/08/17 08:59 11/09/17 17:09 Lorazepam (Ativan 2mg/ml 1ml) 0.5 mg Q4H PRN IV For Anxiety 11/07/17 11:45 11/14/17 11:44 11/09/17 17:49 Magnesium Oxide (Mag-Ox 400mg) 400 mg THREE TIMES A DAY ORAL 11/08/17 13:00 12/08/17 12:59 11/09/17 17:09 Ondansetron HCl (Zofran) 4 mg Q6H PRN IVP Nausea & Vomiting 11/07/17 11:45 12/07/17 11:44 Polyethylene Glycol (Miralax) 17 gm HSPRN PRN ORAL Constipation 11/07/17 11:45 12/07/17 11:44 Quetiapine Fumarate (SEROquel) 50 mg BEDTIME ORAL 11/07/17 21:00 12/07/17 20:59 11/08/17 20:21 Zolpidem Tartrate (Ambien) 5 mg HSPRN PRN ORAL Insomnia 11/07/17 11:45 11/14/17 11:44 11/09/17 01:54 Allergies: Coded Allergies: ACETAMINOPHEN (Verified Allergy, Unknown, 10/28/17) HYDROCODONE (Verified Allergy, Unknown, 10/28/17) HYDROMORPHONE (Unverified Allergy, Unknown, 11/07/17) Subjective awake, alert, responsive, No CP or SOB, No N/V Objective Last Vital Signs Date Time Temp Pulse Resp B/P (MAP) Pulse Ox O2 Delivery O2 Flow Rate FiO2 11/09/17 16:15 98.6 104 20 136/80 99 Room Air Intake and Output 11/09/17 11/10/17 19:00 07:00 Intake Total 360 ml Balance 360 ml Intake Oral 360 ml # Voids 3 Objective General: No acute distress, awake and alert HEENT: NCAT, sclera anicteric, PERRL, EOMI. Neck: Supple, no significant jugular venous distention, Lungs: Good inspiratory effort, clear to auscultation bilaterally, no Wheeze or Rales. Heart: Regular rate and rhythm, normal S1/S2, no murmurs Abdomen: soft, nontender, nondistended. Normoactive bowel sounds. / Rectal: Refused and deferred. Extremities: No Cyanosis , clubbing or edema. Neuro: A&O x 3, Able to move all extremities, lower extremities weakness. Skin: warm, no rashes or lesions Psych: Normal mood and affect Assessment/Plan Assessment/Plan (1) Inguinal hernia (2) Abdominal pain (3) Lower extremities weakness (4) Depression with somatization (5) HTN Plan: Patient refused PT evaluation F/U with Dr. Gorman Recommendation DC Planning for AM Full code Heparin SQ MRI of Lumbar spine Impression: No acute abnormality identified. No gross abnormal postcontrast enhancement. Clinical correlation recommended. Degenerative lumbar spondylosis involving L3/L4, L4/L5 and L5/S1 Virgilio Carvajal MD Nov 09, 2017 19:37
[2017-11-09 20:00] VITALS: BP 134/84
--- NOTE | 2017-11-09 22:43 | Pulmonology Progress Note ---
Assessment/Plan Problems: (1) Depression with somatization Assessment/Plan no new events psych evaluation appreciated f/u psych recommendations pt/ot all noted social service evaluation. Subjective ROS Limited/Unobtainable: No Allergies: Coded Allergies: ACETAMINOPHEN (Verified Allergy, Unknown, 10/28/17) HYDROCODONE (Verified Allergy, Unknown, 10/28/17) HYDROMORPHONE (Unverified Allergy, Unknown, 11/07/17) Objective Last 24 Hour Vital Signs Date Time Temp Pulse Resp B/P (MAP) Pulse Ox O2 Delivery O2 Flow Rate FiO2 11/09/17 20:00 98.1 89 20 134/84 98 Room Air 11/09/17 16:15 98.6 104 20 136/80 99 Room Air 11/09/17 12:00 98.0 96 20 128/74 97 11/09/17 12:00 Room Air 11/09/17 08:00 97.0 100 20 131/72 98 Room Air 11/09/17 08:00 Room Air 11/09/17 07:45 98.1 11/09/17 04:00 98.1 71 16 109/60 100 Room Air 11/09/17 00:00 98.1 79 16 101/64 100 Room Air Intake and Output 11/09/17 11/10/17 19:00 07:00 Intake Total 360 ml Balance 360 ml Intake Oral 360 ml # Voids 3 Objective General Appearance: WD/WN HEENT: normocephalic, atraumatic Respiratory/Chest: chest wall non-tender, lungs clear Breasts: no masses Cardiovascular: normal peripheral pulses Abdomen: normal bowel sounds, soft, non tender Genitourinary: normal external genitalia Skin: no rash Current Medications Medications (Trade) Dose Ordered Sig/Luis Daniel Route PRN Reason Start Time Stop Time Status Last Admin Dose Admin Acetaminophen (Tylenol) 650 mg Q4H PRN ORAL Fever/Headache/Mild Pain 11/09/17 13:30 12/09/17 13:29 Al Hydroxide/Mg Hydroxide (Mylanta II) 30 ml Q6H PRN ORAL dyspepsia 11/07/17 11:45 12/07/17 11:44 Dextrose (Dextrose 50%) STAT PRN IV Hypoglycemia 11/07/17 11:45 12/07/17 11:44 Duloxetine HCl (Cymbalta) 30 mg DAILY ORAL 11/08/17 09:00 12/08/17 08:59 11/09/17 08:41 Gabapentin (Neurontin) 600 mg THREE TIMES A DAY ORAL 11/08/17 09:00 12/08/17 08:59 11/09/17 17:09 Lorazepam (Ativan 2mg/ml 1ml) 0.5 mg Q4H PRN IV For Anxiety 11/07/17 11:45 11/14/17 11:44 11/09/17 21:48 Magnesium Oxide (Mag-Ox 400mg) 400 mg THREE TIMES A DAY ORAL 11/08/17 13:00 12/08/17 12:59 11/09/17 17:09 Ondansetron HCl (Zofran) 4 mg Q6H PRN IVP Nausea & Vomiting 11/07/17 11:45 12/07/17 11:44 Polyethylene Glycol (Miralax) 17 gm HSPRN PRN ORAL Constipation 11/07/17 11:45 12/07/17 11:44 Quetiapine Fumarate (SEROquel) 50 mg BEDTIME ORAL 11/07/17 21:00 12/07/17 20:59 11/09/17 21:48 Zolpidem Tartrate (Ambien) 5 mg HSPRN PRN ORAL Insomnia 11/07/17 11:45 11/14/17 11:44 11/09/17 01:54 TEENA OLIVER Nov 09, 2017 22:43
[2017-11-10] VITALS (7 sets, daily range): BP systolic 110–136; BP diastolic 65–88
[2017-11-10] MEDS: LORazepam Inj 2mg/ml 1ml IV PRN ×5 (05:28→22:32)
[2017-11-10] MEDS: DULoxetine 30mg cap ORAL SCH (08:37)
[2017-11-10] MEDS: Magnesium Oxide 400mg tab ORAL SCH ×3 (08:37→17:06)
--- NOTE | 2017-11-10 17:40 | Pulmonology Progress Note ---
Assessment/Plan Problems: (1) Depression with somatization Assessment/Plan no new events psych evaluation appreciated f/u psych recommendations pt/ot all noted social service evaluation. mri negative Subjective ROS Limited/Unobtainable: No Constitutional: Reports: no symptoms Allergies: Coded Allergies: ACETAMINOPHEN (Verified Allergy, Unknown, 10/28/17) HYDROCODONE (Verified Allergy, Unknown, 10/28/17) HYDROMORPHONE (Unverified Allergy, Unknown, 11/07/17) Objective Last 24 Hour Vital Signs Date Time Temp Pulse Resp B/P (MAP) Pulse Ox O2 Delivery O2 Flow Rate FiO2 11/10/17 16:10 98.2 66 21 110/65 99 Room Air 11/10/17 12:01 97.3 104 19 136/82 97 Room Air 11/10/17 08:15 98.2 96 22 121/88 96 Room Air 11/10/17 04:00 98.4 85 18 136/81 99 Room Air 11/10/17 00:00 98.6 78 18 127/79 98 Room Air 11/09/17 20:00 98.1 89 20 134/84 98 Room Air Intake and Output 11/10/17 11/11/17 19:00 07:00 Intake Total 720 ml Balance 720 ml Intake Oral 720 ml # Voids 4 Objective General Appearance: WD/WN HEENT: normocephalic, atraumatic Respiratory/Chest: chest wall non-tender, lungs clear Breasts: no masses Cardiovascular: normal peripheral pulses Abdomen: normal bowel sounds, soft, non tender Genitourinary: normal external genitalia Skin: no rash Current Medications Medications (Trade) Dose Ordered Sig/Luis Daniel Route PRN Reason Start Time Stop Time Status Last Admin Dose Admin Acetaminophen (Tylenol) 650 mg Q4H PRN ORAL Fever/Headache/Mild Pain 11/09/17 13:30 12/09/17 13:29 Al Hydroxide/Mg Hydroxide (Mylanta II) 30 ml Q6H PRN ORAL dyspepsia 11/07/17 11:45 12/07/17 11:44 Dextrose (Dextrose 50%) STAT PRN IV Hypoglycemia 11/07/17 11:45 12/07/17 11:44 Duloxetine HCl (Cymbalta) 30 mg DAILY ORAL 11/08/17 09:00 12/08/17 08:59 11/10/17 08:37 Gabapentin (Neurontin) 600 mg THREE TIMES A DAY ORAL 11/08/17 09:00 12/08/17 08:59 11/10/17 17:06 Lorazepam (Ativan 2mg/ml 1ml) 0.5 mg Q4H PRN IV For Anxiety 11/07/17 11:45 11/14/17 11:44 11/10/17 14:02 Magnesium Oxide (Mag-Ox 400mg) 400 mg THREE TIMES A DAY ORAL 11/08/17 13:00 12/08/17 12:59 11/10/17 17:06 Ondansetron HCl (Zofran) 4 mg Q6H PRN IVP Nausea & Vomiting 11/07/17 11:45 12/07/17 11:44 Polyethylene Glycol (Miralax) 17 gm HSPRN PRN ORAL Constipation 11/07/17 11:45 12/07/17 11:44 Quetiapine Fumarate (SEROquel) 50 mg BEDTIME ORAL 11/07/17 21:00 12/07/17 20:59 11/09/17 21:48 Zolpidem Tartrate (Ambien) 5 mg HSPRN PRN ORAL Insomnia 11/07/17 11:45 11/14/17 11:44 11/09/17 01:54 TEENA OLIVER Nov 10, 2017 17:40
--- NOTE | 2017-11-10 18:18 | Internal Med Progress Note ---
Subjective Physician Name Virgilio Carvajal Attending Physician Virgilio Carvajal MD Current Medications Medications (Trade) Dose Ordered Sig/Luis Daniel Route PRN Reason Start Time Stop Time Status Last Admin Dose Admin Acetaminophen (Tylenol) 650 mg Q4H PRN ORAL Fever/Headache/Mild Pain 11/09/17 13:30 12/09/17 13:29 Al Hydroxide/Mg Hydroxide (Mylanta II) 30 ml Q6H PRN ORAL dyspepsia 11/07/17 11:45 12/07/17 11:44 Dextrose (Dextrose 50%) STAT PRN IV Hypoglycemia 11/07/17 11:45 12/07/17 11:44 Duloxetine HCl (Cymbalta) 30 mg DAILY ORAL 11/08/17 09:00 12/08/17 08:59 11/10/17 08:37 Gabapentin (Neurontin) 600 mg THREE TIMES A DAY ORAL 11/08/17 09:00 12/08/17 08:59 11/10/17 17:06 Lorazepam (Ativan 2mg/ml 1ml) 0.5 mg Q4H PRN IV For Anxiety 11/07/17 11:45 11/14/17 11:44 11/10/17 14:02 Magnesium Oxide (Mag-Ox 400mg) 400 mg THREE TIMES A DAY ORAL 11/08/17 13:00 12/08/17 12:59 11/10/17 17:06 Ondansetron HCl (Zofran) 4 mg Q6H PRN IVP Nausea & Vomiting 11/07/17 11:45 12/07/17 11:44 Polyethylene Glycol (Miralax) 17 gm HSPRN PRN ORAL Constipation 11/07/17 11:45 12/07/17 11:44 Quetiapine Fumarate (SEROquel) 50 mg BEDTIME ORAL 11/07/17 21:00 12/07/17 20:59 11/09/17 21:48 Zolpidem Tartrate (Ambien) 5 mg HSPRN PRN ORAL Insomnia 11/07/17 11:45 11/14/17 11:44 11/09/17 01:54 Allergies: Coded Allergies: ACETAMINOPHEN (Verified Allergy, Unknown, 10/28/17) HYDROCODONE (Verified Allergy, Unknown, 10/28/17) HYDROMORPHONE (Unverified Allergy, Unknown, 11/07/17) Subjective awake, alert, responsive, No CP or SOB, No N/V, C/O unable to move lower extremities, crying Objective Last Vital Signs Date Time Temp Pulse Resp B/P (MAP) Pulse Ox O2 Delivery O2 Flow Rate FiO2 11/10/17 16:10 98.2 66 21 110/65 99 Room Air Intake and Output 11/10/17 11/11/17 19:00 07:00 Intake Total 720 ml Balance 720 ml Intake Oral 720 ml # Voids 4 Objective General: No acute distress, awake and alert HEENT: NCAT, sclera anicteric, PERRL, EOMI. Neck: Supple, no significant jugular venous distention, Lungs: Good inspiratory effort, clear to auscultation bilaterally, no Wheeze or Rales. Heart: Regular rate and rhythm, normal S1/S2, no murmurs Abdomen: soft, nontender, nondistended. Normoactive bowel sounds. / Rectal: Refused and deferred. Extremities: No Cyanosis , clubbing or edema. Neuro: A&O x 3, Able to move all extremities, lower extremities weakness. Skin: warm, no rashes or lesions Psych: Normal mood and affect Assessment/Plan Assessment/Plan (1) Inguinal hernia (2) Abdominal pain (3) Lower extremities weakness etiology? (4) Depression with somatization (5) HTN Plan: Patient refused PT evaluation F/U with Dr. Gorman Recommendation DC Planning to SNF Full code Heparin SQ MRI of Lumbar spine Impression: No acute abnormality identified. No gross abnormal postcontrast enhancement. Clinical correlation recommended. Degenerative lumbar spondylosis involving L3/L4, L4/L5 and L5/S1 Virgilio Carvajal MD Nov 10, 2017 18:18
[2017-11-11 04:00] VITALS: BP 104/60
[2017-11-11] MEDS: LORazepam Inj 2mg/ml 1ml IV PRN ×5 (04:28→21:59)
--- NOTE | 2017-11-11 08:15 | Consultation ---
DATE OF CONSULTATION: 11/08/2017 NEUROLOGICAL CONSULTATION REQUESTING PHYSICIAN: Virgilio Carvajal M.D. HISTORY OF PRESENT ILLNESS: This is a 51 years old female, seen in neurological consultation to evaluate new onset of "paralysis and seizures." According to paramedics, the patient was seen at her facility where she was stating that she experienced a seizure while going to the market. Symptoms subsided because "she took some coffee." Her examination revealed normal EKG. During transportation, she remained stable complaining of left-sided pain, intermittent "paralysis" upper and lower extremities, but no signs of trauma noted, and vital signs were stable. Blood pressure 157/94 and heart rate of 106. She was afebrile. On arrival to emergency room, she indicated she is unable to walk because she cannot feel her legs. She is getting progressively worse and unable to move. She admitted that she was not taking her psychiatric medication the last several days. Her admission vital signs remained stable. Her laboratory work included a normal CBC. Toxicology panel was negative. Urinalysis normal as well as coagulation. Chemistry panel was unremarkable except low TSH of 0.296, AST of 40, magnesium 1.6. Imaging studies included a stat MRI of the brain. This was a normal study with no evidence of acute abnormalities. Venous duplex, no DVT noted. The patient's most recent assessment was on 10/28/2017 when she was seen for lower extremity cramping pain, which was progressing when she ran out of her muscle relaxant, Robaxin. The patient's most recent abdomen and pelvis CT scan revealed ascites presumably related to history of cirrhosis, right inguinal canal soft tissue attenuation noted, which did not appear to be herniated bowel, diverticulosis, pancreatic atrophy, suspected prior pancreatitis, bilateral breast implants, and degenerative lumbar spondylosis. PAST MEDICAL HISTORY: The patient has a history of in 2013, history of ovarian tumor, and hysterectomy in 2009. She has chronic psychiatric disorder treated at [facility]. MEDICATIONS: Treatment prior to admission included Benadryl for allergies, enalapril, Lexapro 20 mg, furosemide, ibuprofen 400 mg t.i.d., Robaxin q.i.d., pantoprazole, quetiapine 200 mg at bedtime, and spironolactone. ALLERGIES: Acetaminophen, hydrocodone, and hydromorphone. SOCIAL HISTORY: The patient has adult daughter, who lives in [place] with her family. The patient lives now in a recuperative care, which she likes to be where "they help me a lot". FAMILY HISTORY: Noncontributory. REVIEW OF SYSTEMS: The patient informed me that 5 days ago, she suddenly started to walk "in circles." She developed on and off "paralysis" arms and legs. Now, she feels that her legs and arms stopped working. She had episodes of nausea and vomiting. In addition the last 3 months, she developed "seizures." She describes having 10 to 20 episodes per day describing them as follows: She would lose control. She can see light. She feels her teeth chattering and had shaking. She can hear voices, but cannot talk, episodes are "violent" lasting initially 5 to 10 seconds, but at times may last up to 2 hours. "I'm surprised with those symptoms." She stated that I have to be prepared because if she cannot talk, she will blink once for yes and twice for no. She has "numbness and fiery sensation in her abdomen." The patient indicated that she has what everyone thinks is a hernia, but she feels it may be malignancy and she eventually may need to have radiation therapy and chemotherapy. History of ascites, but no alcohol or drug abuse. The patient admitted that she " blood." PHYSICAL EXAMINATION: GENERAL: A well-developed, well-nourished, pleasant lady, not in acute distress, lying comfortably in bed. During conversation, she was not moving her lower extremities except occasional right foot movement noted. She was stating that she cannot move arms, but during conversation, she was able to move them around holding blankets as necessary. She was talkative. Attention span was poor. She would go to description of seizures and go to description of other medical issues continuously. She was following commands. She was pleasant and cooperative. CRANIAL NERVES II: Pupils are 2 mm both responding to light and accommodation. Extraocular movements intact. No nystagmus. CRANIAL NERVES V: Normal corneal responses. CRANIAL NERVES VII: No facial asymmetry. CRANIAL NERVES VIII: Normal hearing. CRANIAL NERVES IX THROUGH XII: Tongue is in midline. Symmetric palate elevation. MOTOR EXAMINATION: Revealed intermittent weakness, 3/5 in both upper extremities. Only briefly holding against the gravity, but otherwise it would be quite wobbly. She was trying to reach the nose on [id number] testing, but is stated that she unable to lift enough. She maintained her lower extremities without any movement except minor twitching of right foot. Muscle tone flaccid in arms and legs. Deep tendon reflexes 2+ biceps, triceps, brachioradialis, knee, and ankle jerks with plantar responses mute. SENSORY EXAM: Not withdrawing to pin stimulation both arms and legs. IMPRESSION: 1. This is a 51 years old female with new onset of inability to move her lower extremities, weakness in both upper extremities, and reported paroxysmal events with partial changes in level of consciousness resembling atypical seizure like activity. Due to the significant amount of inconsistency on examination, it appears that the patient's symptomatology is psychosomatic representing conversion reaction. Neurologic exam without lateralizing findings and MRI of the brain is normal. 2. Chronic psychiatric disorder. 3. History of ascites. RECOMMENDATIONS: The patient will be observed following 24 hours. The patient started on antipsychotic treatment. Psychiatry assessment will be requested to assist with management. The patient to continue with muscle relaxants. She apparently has a good response for treatment of muscle spasms. Laboratory work to include OMAR and sedimentation rate. We will follow with you. Boris Urias M.D. DR: Andreas JOB#: [id number] CC:
[2017-11-11] MEDS: DULoxetine 30mg cap ORAL SCH (08:36)
[2017-11-11] MEDS: Magnesium Oxide 400mg tab ORAL SCH ×3 (08:36→17:03)
--- NOTE | 2017-11-11 11:36 | Internal Med Progress Note ---
Subjective Date of Service: Nov 11, 2017 Physician Name Juan David Tong Attending Physician Virgilio Carvajal MD Current Medications Medications (Trade) Dose Ordered Sig/Luis Daniel Route PRN Reason Start Time Stop Time Status Last Admin Dose Admin Acetaminophen (Tylenol) 650 mg Q4H PRN ORAL Fever/Headache/Mild Pain 11/09/17 13:30 12/09/17 13:29 Al Hydroxide/Mg Hydroxide (Mylanta II) 30 ml Q6H PRN ORAL dyspepsia 11/07/17 11:45 12/07/17 11:44 Dextrose (Dextrose 50%) STAT PRN IV Hypoglycemia 11/07/17 11:45 12/07/17 11:44 Duloxetine HCl (Cymbalta) 30 mg DAILY ORAL 11/08/17 09:00 12/08/17 08:59 11/11/17 08:36 Gabapentin (Neurontin) 600 mg THREE TIMES A DAY ORAL 11/08/17 09:00 12/08/17 08:59 11/11/17 08:36 Lorazepam (Ativan 2mg/ml 1ml) 0.5 mg Q4H PRN IV For Anxiety 11/07/17 11:45 11/14/17 11:44 11/11/17 08:45 Magnesium Oxide (Mag-Ox 400mg) 400 mg THREE TIMES A DAY ORAL 11/08/17 13:00 12/08/17 12:59 11/11/17 08:36 Ondansetron HCl (Zofran) 4 mg Q6H PRN IVP Nausea & Vomiting 11/07/17 11:45 12/07/17 11:44 Polyethylene Glycol (Miralax) 17 gm HSPRN PRN ORAL Constipation 11/07/17 11:45 12/07/17 11:44 Quetiapine Fumarate (SEROquel) 50 mg BEDTIME ORAL 11/07/17 21:00 12/07/17 20:59 11/10/17 21:22 Zolpidem Tartrate (Ambien) 5 mg HSPRN PRN ORAL Insomnia 11/07/17 11:45 11/14/17 11:44 11/09/17 01:54 Allergies: Coded Allergies: ACETAMINOPHEN (Verified Allergy, Unknown, 10/28/17) HYDROCODONE (Verified Allergy, Unknown, 10/28/17) HYDROMORPHONE (Unverified Allergy, Unknown, 11/07/17) ROS Limited/Unobtainable: No Constitutional: Reports: no symptoms HEENT: Reports: no symptoms Cardiovascular: Reports: no symptoms Respiratory: Reports: no symptoms Gastrointestinal/Abdominal: Reports: no symptoms Genitourinary: Reports: no symptoms Neurologic/Psychiatric: Reports: no symptoms Subjective 51 YO F admitted with lower extremity weakness. Refused physical therapy. Cover for Int Med-Dr Carvajal. Objective Last Vital Signs Date Time Temp Pulse Resp B/P (MAP) Pulse Ox O2 Delivery O2 Flow Rate FiO2 11/11/17 04:00 98.2 71 18 104/60 99 11/10/17 16:10 Room Air Intake and Output 11/11/17 11/12/17 19:00 07:00 Intake Total 240 ml Balance 240 ml Intake Oral 240 ml # Voids 1 # Bowel Movements 1 Objective Objective General: No acute distress, awake and alert HEENT: NCAT, sclera anicteric, PERRL, EOMI. Neck: Supple, no significant jugular venous distention, Lungs: Good inspiratory effort, clear to auscultation bilaterally, no Wheeze or Rales. Heart: Regular rate and rhythm, normal S1/S2, no murmurs Abdomen: soft, nontender, nondistended. Normoactive bowel sounds. / Rectal: Refused and deferred. Extremities: No Cyanosis , clubbing or edema. Neuro: A&O x 3, Able to move all extremities, lower extremities weakness. Skin: warm, no rashes or lesions Psych: Normal mood and affect Assessment/Plan Assessment/Plan Assessment/Plan (1) Inguinal hernia (2) Abdominal pain (3) Lower extremities weakness etiology? (4) Depression with somatization (5) HTN Plan: Patient refused PT evaluation F/U with Dr. Gorman Recommendation DC Planning to SNF Full code Heparin SQ JUAN DAVID TONG Nov 11, 2017 11:36
[2017-11-11 12:15] VITALS: BP 128/84
[2017-11-11 16:16] VITALS: BP 103/56
--- NOTE | 2017-11-11 16:20 | Pulmonology Progress Note ---
Assessment/Plan Problems: (1) Depression with somatization Assessment/Plan c/o right inguinal hernia psych evaluation appreciated social service evaluation. mri negative Subjective ROS Limited/Unobtainable: No Constitutional: Reports: no symptoms HEENT: Repors: no symptoms Respiratory: Reports: no symptoms Allergies: Coded Allergies: ACETAMINOPHEN (Verified Allergy, Unknown, 10/28/17) HYDROCODONE (Verified Allergy, Unknown, 10/28/17) HYDROMORPHONE (Unverified Allergy, Unknown, 11/07/17) Objective Last 24 Hour Vital Signs Date Time Temp Pulse Resp B/P (MAP) Pulse Ox O2 Delivery O2 Flow Rate FiO2 11/11/17 12:15 97.5 96 22 128/84 99 Room Air 11/11/17 04:00 98.2 71 18 104/60 99 11/10/17 23:54 98.0 75 18 118/68 98 11/10/17 20:00 97.8 80 18 126/88 96 Intake and Output 11/11/17 11/12/17 19:00 07:00 Intake Total 720 ml Balance 720 ml Intake Oral 720 ml # Voids 3 # Bowel Movements 1 Objective General Appearance: WD/WN HEENT: normocephalic, atraumatic Respiratory/Chest: chest wall non-tender, lungs clear Breasts: no masses Cardiovascular: normal peripheral pulses Abdomen: normal bowel sounds, soft, non tender Genitourinary: normal external genitalia Skin: no rash Current Medications Medications (Trade) Dose Ordered Sig/Luis Daniel Route PRN Reason Start Time Stop Time Status Last Admin Dose Admin Acetaminophen (Tylenol) 650 mg Q4H PRN ORAL Fever/Headache/Mild Pain 11/09/17 13:30 12/09/17 13:29 Al Hydroxide/Mg Hydroxide (Mylanta II) 30 ml Q6H PRN ORAL dyspepsia 11/07/17 11:45 12/07/17 11:44 Dextrose (Dextrose 50%) STAT PRN IV Hypoglycemia 11/07/17 11:45 12/07/17 11:44 Duloxetine HCl (Cymbalta) 30 mg DAILY ORAL 11/08/17 09:00 12/08/17 08:59 11/11/17 08:36 Gabapentin (Neurontin) 600 mg THREE TIMES A DAY ORAL 11/08/17 09:00 12/08/17 08:59 11/11/17 12:12 Lorazepam (Ativan 2mg/ml 1ml) 0.5 mg Q4H PRN IV For Anxiety 11/07/17 11:45 11/14/17 11:44 11/11/17 12:55 Magnesium Oxide (Mag-Ox 400mg) 400 mg THREE TIMES A DAY ORAL 11/08/17 13:00 12/08/17 12:59 11/11/17 12:12 Ondansetron HCl (Zofran) 4 mg Q6H PRN IVP Nausea & Vomiting 11/07/17 11:45 12/07/17 11:44 Polyethylene Glycol (Miralax) 17 gm HSPRN PRN ORAL Constipation 11/07/17 11:45 12/07/17 11:44 Quetiapine Fumarate (SEROquel) 50 mg BEDTIME ORAL 11/07/17 21:00 12/07/17 20:59 11/10/17 21:22 Zolpidem Tartrate (Ambien) 5 mg HSPRN PRN ORAL Insomnia 11/07/17 11:45 11/14/17 11:44 11/09/17 01:54 TEENA OLIVER Nov 11, 2017 16:20
--- NOTE | 2017-11-11 16:56 | General Progress Note ---
Assessment/Plan Status: stable, progressing Assessment/Plan the pt has been to hospitals several months, recent MRI of brain and spine negative inguinal hernia which could be addressed out patient recommend dc pts psych meds are readjusted Subjective Neurologic/Psychiatric: Reports: anxiety, emotional problems Allergies: Coded Allergies: ACETAMINOPHEN (Verified Allergy, Unknown, 10/28/17) HYDROCODONE (Verified Allergy, Unknown, 10/28/17) HYDROMORPHONE (Unverified Allergy, Unknown, 11/07/17) Subjective the pt has multiple complaints and would insist that she has serious illness. maybe for secondary gain. the pt is illogical. Objective Last 24 Hour Vital Signs Date Time Temp Pulse Resp B/P (MAP) Pulse Ox O2 Delivery O2 Flow Rate FiO2 11/11/17 16:16 98.4 61 19 103/56 100 Room Air 11/11/17 12:15 97.5 96 22 128/84 99 Room Air 11/11/17 04:00 98.2 71 18 104/60 99 11/10/17 23:54 98.0 75 18 118/68 98 11/10/17 20:00 97.8 80 18 126/88 96 Intake and Output 11/11/17 11/12/17 19:00 07:00 Intake Total 720 ml Balance 720 ml Intake Oral 720 ml # Voids 3 # Bowel Movements 1 Height (Feet): 5 Height (Inches): 9.00 Weight (Pounds): 134 General Appearance: no apparent distress, alert, thin Neurologic: alert, oriented x 3, responsive, depressed affect Alla Gorman M.D. Nov 11, 2017 16:56
[2017-11-11 20:00] VITALS: BP 106/65
[2017-11-12] VITALS (7 sets, daily range): BP systolic 110–150; BP diastolic 67–82
[2017-11-12] MEDS: LORazepam Inj 2mg/ml 1ml IV PRN ×2 (06:01→10:06)
[2017-11-12 06:45] LABS: BASOPHILS % (AUTO) 1.6 % (0.0-2.0); EOSINOPHILS % (AUTO) 8.8 % (0.0-3.0); LYMPHOCYTES % (AUTO) 40.3 % (20.0-45.0); MEAN CORPUSCULAR HGB CONC 34.2 G/DL (32.0-36.0); MEAN CORPUSCULAR VOLUME 97 FL (80-99); MONOCYTES % (AUTO) 11.1 % (1.0-10.0); NEUTROPHILS % (AUTO) 38.2 % (45.0-75.0); PLATELET COUNT 266 K/UL (150-450); RED BLOOD COUNT 3.27 M/UL (4.20-5.40); RED CELL DISTRIBUTION WIDTH 13.2 % (11.6-14.8); WHITE BLOOD COUNT 5.3 K/UL (4.8-10.8)
[2017-11-12 07:34] LABS: ANION GAP 7 mmol/L (5-15); CALCIUM 8.7 MG/DL (8.5-10.1); CARBON DIOXIDE 28 MMOL/L (21-32); CHLORIDE 103 MMOL/L (98-107); CREATININE 0.9 MG/DL (0.55-1.30); GLOMERULAR FILTRATION RATE > 60 mL/min (>60); POTASSIUM 4.1 MMOL/L (3.5-5.1); SODIUM 138 MMOL/L (136-145)
[2017-11-12] MEDS: Magnesium Oxide 400mg tab ORAL SCH ×3 (08:11→17:16)
[2017-11-12] MEDS: DULoxetine 30mg cap ORAL SCH (08:11)
[2017-11-12] MEDS: LORazepam 0.5mg tab ORAL PRN ×2 (13:57→18:40)
--- NOTE | 2017-11-12 16:43 | Pulmonology Progress Note ---
Assessment/Plan Problems: (1) Depression with somatization Assessment/Plan c/o right inguinal hernia psych evaluation appreciated social service evaluation. mri negative difficult dc planning b/o homelessness and pts personality disorder Subjective ROS Limited/Unobtainable: No Allergies: Coded Allergies: ACETAMINOPHEN (Verified Allergy, Unknown, 10/28/17) HYDROCODONE (Verified Allergy, Unknown, 10/28/17) HYDROMORPHONE (Unverified Allergy, Unknown, 11/07/17) Objective Last 24 Hour Vital Signs Date Time Temp Pulse Resp B/P (MAP) Pulse Ox O2 Delivery O2 Flow Rate FiO2 11/12/17 15:47 97.6 98 20 124/81 100 Room Air 11/12/17 15:20 112 20 150/82 99 Room Air 11/12/17 11:34 97.8 92 19 119/67 99 Room Air 11/12/17 08:18 97.7 97 19 123/74 100 Room Air 11/12/17 04:00 97.9 83 19 115/69 95 11/12/17 00:00 97.5 80 18 110/70 96 11/11/17 20:00 97.2 78 19 106/65 97 Objective General Appearance: WD/WN HEENT: normocephalic, atraumatic Respiratory/Chest: chest wall non-tender, lungs clear Breasts: no masses Cardiovascular: normal peripheral pulses Abdomen: normal bowel sounds, soft, non tender Genitourinary: normal external genitalia Skin: no rash Laboratory Tests 11/12/17 05:00: White Blood Count 5.3, Red Blood Count 3.27L, Hemoglobin 10.8L, Hematocrit 31.7L , Mean Corpuscular Volume 97, Mean Corpuscular Hemoglobin 33.0H, Mean Corpuscular Hemoglobin Concent 34.2, Red Cell Distribution Width 13.2, Platelet Count 266, Mean Platelet Volume 6.0L, Neutrophils (%) (Auto) 38.2L, Lymphocytes (%) (Auto) 40.3, Monocytes (%) (Auto) 11.1H, Eosinophils (%) (Auto) 8.8H, Basophils (%) (Auto) 1.6, Sodium Level 138, Potassium Level 4.1, Chloride Level 103, Carbon Dioxide Level 28, Anion Gap 7, Blood Urea Nitrogen 17, Creatinine 0.9, Estimat Glomerular Filtration Rate > 60, Glucose Level 94, Calcium Level 8.7 Current Medications Medications (Trade) Dose Ordered Sig/Luis Daniel Route PRN Reason Start Time Stop Time Status Last Admin Dose Admin Acetaminophen (Tylenol) 650 mg Q4H PRN ORAL Fever/Headache/Mild Pain 11/09/17 13:30 12/09/17 13:29 11/12/17 13:58 Al Hydroxide/Mg Hydroxide (Mylanta II) 30 ml Q6H PRN ORAL dyspepsia 11/07/17 11:45 12/07/17 11:44 Dextrose (Dextrose 50%) STAT PRN IV Hypoglycemia 11/07/17 11:45 12/07/17 11:44 Duloxetine HCl (Cymbalta) 30 mg DAILY ORAL 11/08/17 09:00 12/08/17 08:59 11/12/17 08:11 Gabapentin (Neurontin) 600 mg THREE TIMES A DAY ORAL 11/08/17 09:00 12/08/17 08:59 11/12/17 13:16 Lorazepam (Ativan) 0.5 mg Q4HR PRN ORAL For Anxiety 11/12/17 10:30 11/19/17 10:29 11/12/17 13:57 Magnesium Oxide (Mag-Ox 400mg) 400 mg THREE TIMES A DAY ORAL 11/08/17 13:00 12/08/17 12:59 11/12/17 13:16 Ondansetron HCl (Zofran) 4 mg Q6H PRN IVP Nausea & Vomiting 11/07/17 11:45 12/07/17 11:44 Polyethylene Glycol (Miralax) 17 gm HSPRN PRN ORAL Constipation 11/07/17 11:45 12/07/17 11:44 Quetiapine Fumarate (SEROquel) 50 mg BEDTIME ORAL 11/07/17 21:00 12/07/17 20:59 11/11/17 21:00 Zolpidem Tartrate (Ambien) 5 mg HSPRN PRN ORAL Insomnia 11/07/17 11:45 11/14/17 11:44 11/09/17 01:54 TEENA OLIVER Nov 12, 2017 16:43
--- NOTE | 2017-11-12 18:49 | Internal Med Progress Note ---
Subjective Date of Service: Nov 12, 2017 Physician Name Juan David Tong Attending Physician Virgilio Carvajal MD Current Medications Medications (Trade) Dose Ordered Sig/Luis Daniel Route PRN Reason Start Time Stop Time Status Last Admin Dose Admin Acetaminophen (Tylenol) 650 mg Q4H PRN ORAL Fever/Headache/Mild Pain 11/09/17 13:30 12/09/17 13:29 11/12/17 18:40 Al Hydroxide/Mg Hydroxide (Mylanta II) 30 ml Q6H PRN ORAL dyspepsia 11/07/17 11:45 12/07/17 11:44 Dextrose (Dextrose 50%) STAT PRN IV Hypoglycemia 11/07/17 11:45 12/07/17 11:44 Duloxetine HCl (Cymbalta) 30 mg DAILY ORAL 11/08/17 09:00 12/08/17 08:59 11/12/17 08:11 Gabapentin (Neurontin) 600 mg THREE TIMES A DAY ORAL 11/08/17 09:00 12/08/17 08:59 11/12/17 17:16 Lorazepam (Ativan) 0.5 mg Q4HR PRN ORAL For Anxiety 11/12/17 10:30 11/19/17 10:29 11/12/17 18:40 Magnesium Oxide (Mag-Ox 400mg) 400 mg THREE TIMES A DAY ORAL 11/08/17 13:00 12/08/17 12:59 11/12/17 17:16 Ondansetron HCl (Zofran) 4 mg Q6H PRN IVP Nausea & Vomiting 11/07/17 11:45 12/07/17 11:44 Polyethylene Glycol (Miralax) 17 gm HSPRN PRN ORAL Constipation 11/07/17 11:45 12/07/17 11:44 Quetiapine Fumarate (SEROquel) 50 mg BEDTIME ORAL 11/07/17 21:00 12/07/17 20:59 11/11/17 21:00 Zolpidem Tartrate (Ambien) 5 mg HSPRN PRN ORAL Insomnia 11/07/17 11:45 11/14/17 11:44 11/09/17 01:54 Allergies: Coded Allergies: ACETAMINOPHEN (Verified Allergy, Unknown, 10/28/17) HYDROCODONE (Verified Allergy, Unknown, 10/28/17) HYDROMORPHONE (Unverified Allergy, Unknown, 11/07/17) ROS Limited/Unobtainable: No Constitutional: Reports: no symptoms HEENT: Reports: no symptoms Cardiovascular: Reports: no symptoms Respiratory: Reports: no symptoms Gastrointestinal/Abdominal: Reports: other - right inguinal hernia Genitourinary: Reports: no symptoms Neurologic/Psychiatric: Reports: no symptoms Subjective 51 YO F admitted with lower extremity weakness. Refused physical therapy. C/O right groin mass-await surgery consult. Cover for Int Med-Dr Carvajal. Objective Last Vital Signs Date Time Temp Pulse Resp B/P (MAP) Pulse Ox O2 Delivery O2 Flow Rate FiO2 11/12/17 15:47 97.6 98 20 124/81 100 Room Air Laboratory Tests Test 11/12/17 05:00 White Blood Count 5.3 K/UL (4.8-10.8) Red Blood Count 3.27 M/UL (4.20-5.40) L Hemoglobin 10.8 G/DL (12.0-16.0) L Hematocrit 31.7 % (37.0-47.0) L Mean Corpuscular Volume 97 FL (80-99) Mean Corpuscular Hemoglobin 33.0 PG (27.0-31.0) H Mean Corpuscular Hemoglobin Concent 34.2 G/DL (32.0-36.0) Red Cell Distribution Width 13.2 % (11.6-14.8) Platelet Count 266 K/UL (150-450) Mean Platelet Volume 6.0 FL (6.5-10.1) L Neutrophils (%) (Auto) 38.2 % (45.0-75.0) L Lymphocytes (%) (Auto) 40.3 % (20.0-45.0) Monocytes (%) (Auto) 11.1 % (1.0-10.0) H Eosinophils (%) (Auto) 8.8 % (0.0-3.0) H Basophils (%) (Auto) 1.6 % (0.0-2.0) Sodium Level 138 MMOL/L (136-145) Potassium Level 4.1 MMOL/L (3.5-5.1) Chloride Level 103 MMOL/L (98-107) Carbon Dioxide Level 28 MMOL/L (21-32) Anion Gap 7 mmol/L (5-15) Blood Urea Nitrogen 17 mg/dL (7-18) Creatinine 0.9 MG/DL (0.55-1.30) Estimat Glomerular Filtration Rate > 60 mL/min (>60) Glucose Level 94 MG/DL (74-106) Calcium Level 8.7 MG/DL (8.5-10.1) Intake and Output 11/12/17 11/13/17 19:00 07:00 Intake Total 720 ml Output Total 800 ml Balance -80 ml Intake Oral 720 ml Output Urine Total 800 ml # Bowel Movements 1 Objective Objective General: No acute distress, awake and alert HEENT: NCAT, sclera anicteric, PERRL, EOMI. Neck: Supple, no significant jugular venous distention, Lungs: Good inspiratory effort, clear to auscultation bilaterally, no Wheeze or Rales. Heart: Regular rate and rhythm, normal S1/S2, no murmurs Abdomen: soft, nontender, nondistended. Normoactive bowel sounds. 15 cm mass right groin; reducible. / Rectal: Refused and deferred. Extremities: No Cyanosis , clubbing or edema. Neuro: A&O x 3, Able to move all extremities, lower extremities weakness. Skin: warm, no rashes or lesions Psych: Normal mood and affect Assessment/Plan Assessment/Plan Assessment/Plan (1) Inguinal hernia-await surgery consult. (2) Abdominal pain (3) Lower extremities weakness etiology? (4) Depression with somatization (5) HTN Plan: Patient refused PT evaluation F/U with Dr. Gorman Recommendation DC Planning to SNF Full code Heparin SQ JUAN DAVID TONG Nov 12, 2017 18:49
--- NOTE | 2017-11-12 22:25 | General Progress Note ---
Assessment/Plan Status: stable Assessment/Plan the pt has been to hospitals many time, recent MRI of brain and spine negative inguinal hernia which could be addressed out patient recommend to ask for previous records. in er she stated that she was recently hospitalized and was supposed to see a doctor recommend dc pts psych meds are readjusted Subjective Allergies: Coded Allergies: ACETAMINOPHEN (Verified Allergy, Unknown, 10/28/17) HYDROCODONE (Verified Allergy, Unknown, 10/28/17) HYDROMORPHONE (Unverified Allergy, Unknown, 11/07/17) Subjective the pt is manipulative and now is worried about her hernia. she is refusing to participate in PT. the pt stated that Cymbolta is helping. she does not appear depressed nor anxious. Objective Last 24 Hour Vital Signs Date Time Temp Pulse Resp B/P (MAP) Pulse Ox O2 Delivery O2 Flow Rate FiO2 11/12/17 20:00 97.0 97 20 138/77 99 Room Air 11/12/17 15:47 97.6 98 20 124/81 100 Room Air 11/12/17 15:20 112 20 150/82 99 Room Air 11/12/17 11:34 97.8 92 19 119/67 99 Room Air 11/12/17 08:18 97.7 97 19 123/74 100 Room Air 11/12/17 04:00 97.9 83 19 115/69 95 11/12/17 00:00 97.5 80 18 110/70 96 Intake and Output 11/12/17 11/13/17 19:00 07:00 Intake Total 720 ml Output Total 800 ml Balance -80 ml Intake Oral 720 ml Output Urine Total 800 ml # Bowel Movements 1 Laboratory Tests 11/12/17 05:00: White Blood Count 5.3, Red Blood Count 3.27L, Hemoglobin 10.8L, Hematocrit 31.7L , Mean Corpuscular Volume 97, Mean Corpuscular Hemoglobin 33.0H, Mean Corpuscular Hemoglobin Concent 34.2, Red Cell Distribution Width 13.2, Platelet Count 266, Mean Platelet Volume 6.0L, Neutrophils (%) (Auto) 38.2L, Lymphocytes (%) (Auto) 40.3, Monocytes (%) (Auto) 11.1H, Eosinophils (%) (Auto) 8.8H, Basophils (%) (Auto) 1.6, Sodium Level 138, Potassium Level 4.1, Chloride Level 103, Carbon Dioxide Level 28, Anion Gap 7, Blood Urea Nitrogen 17, Creatinine 0.9, Estimat Glomerular Filtration Rate > 60, Glucose Level 94, Calcium Level 8.7 Height (Feet): 5 Height (Inches): 9.00 Weight (Pounds): 134 General Appearance: WD/WN, no apparent distress, alert, thin Neurologic: alert, oriented x 3, responsive, normal mood/affect Alla Gorman M.D. Nov 12, 2017 22:25
[2017-11-13] VITALS: BP 120/66
[2017-11-13] MEDS: LORazepam 0.5mg tab ORAL PRN ×4 (03:17→21:19)
[2017-11-13 07:13] LABS: BASOPHILS % (AUTO) 1.7 % (0.0-2.0); EOSINOPHILS % (AUTO) 6.9 % (0.0-3.0); LYMPHOCYTES % (AUTO) 40.6 % (20.0-45.0); MEAN CORPUSCULAR HGB CONC 30.9 G/DL (32.0-36.0); MEAN CORPUSCULAR VOLUME 97 FL (80-99); MEAN PLATELET VOLUME 5.4 FL (6.5-10.1); MONOCYTES % (AUTO) 12.1 % (1.0-10.0); NEUTROPHILS % (AUTO) 38.6 % (45.0-75.0); PLATELET COUNT 272 K/UL (150-450); RED BLOOD COUNT 3.32 M/UL (4.20-5.40); RED CELL DISTRIBUTION WIDTH 13.3 % (11.6-14.8); WHITE BLOOD COUNT 5.4 K/UL (4.8-10.8)
[2017-11-13 07:23] LABS: ANION GAP 4 mmol/L (5-15); CALCIUM 8.7 MG/DL (8.5-10.1); CARBON DIOXIDE 30 MMOL/L (21-32); CHLORIDE 104 MMOL/L (98-107); CREATININE 0.9 MG/DL (0.55-1.30); GLOMERULAR FILTRATION RATE > 60 mL/min (>60); POTASSIUM 4.4 MMOL/L (3.5-5.1); SODIUM 138 MMOL/L (136-145)
[2017-11-13 08:41] VITALS: BP 113/72
[2017-11-13] MEDS: DULoxetine 30mg cap ORAL SCH (09:09)
[2017-11-13] MEDS: Magnesium Oxide 400mg tab ORAL SCH ×3 (09:09→17:39)
--- NOTE | 2017-11-13 11:08 | Consultation ---
History of Present Illness General Date patient seen: Nov 13, 2017 Chief Complaint: General Complaint Reason for Consultation: right groin hernia Present Illness HPI 51 year old female with history of psychiatric issues and prior medical problems presents with acute onset of lower extremity paralysis and worsening seizures. During hospitalization she began discussing her known right inguinal hernia and also presented a letter (hand written by herself) stating that the hernia should be fixed in the hospital. Surgery called to evaluate. When seen at bedside, patient introduces herself and requests to be called " the rian" . She states she has multiple medical problems and multiple outpatient physicians managing her medical problems and prescriptions. She cannot recall any of their names or medications but states she has one physician who manages her seizure medications, one who manages her hernia, and one who manages her paralysis which prior she stated just began. When asked about her hernia, she points to the right groin and states that she has had this hernia for some time now. When asked to recall she believes it has been 5 months. She was suppose to have hernia repaired prior but did not because of ascites of unknown etiology. She is a very poor historian (can recall illnesses but does not know any details of care). States hernia reducible and notes budge at times. no nausea or emesis. no symptoms of bowel obstruction. some discomfort noted in right groin. no history of incarceration. Allergies: Coded Allergies: ACETAMINOPHEN (Verified Allergy, Unknown, 10/28/17) HYDROCODONE (Verified Allergy, Unknown, 10/28/17) HYDROMORPHONE (Unverified Allergy, Unknown, 11/07/17) Medication History Scheduled Diphenhydramine Hcl (Benadryl Allergy), 25 MG PO Q6HR Enalapril Maleate (Enalapril Maleate), 5 MG MC DAILY, (Reported) Escitalopram Oxalate* (Lexapro*), 20 MG ORAL DAILY, (Reported) Escitalopram Oxalate* (Lexapro*), 20 MG ORAL DAILY Furosemide (Furosemide), 20 MG ORAL DAILY, (Reported) Ibuprofen* (Motrin*), 400 MG ORAL THREE TIMES A DAY Methocarbamol* (Robaxin-750*), 750 MG PO QID Pantoprazole (Pantoprazole), 40 MG ORAL DAILY, (Reported) Quetiapine Fumarate (Quetiapine Fumarate), 200 MG ORAL BEDTIME, (Reported) Spironolact/Hydrochlorothiazid (Spironolactone-Hctz 25-25 Tab), 1 TAB ORAL DAILY , (Reported) Miscellaneous Medications Docusate Sodium (Dok), 100 MG PO, (Reported) Patient History History Provided By: Patient, Medical Record Healthcare decision maker Resuscitation status Full Code Advanced Directive on File No Past Medical/Surgical History Past Medical/Surgical History: (1) Weakness (2) Depression with somatization (3) Abdominal pain (4) Psychosomatic disorder (5) Inguinal hernia Review of Systems All Other Systems: negative except mentioned in HPI - as noted in HPI. Physical Exam General Appearance: WD/WN, no apparent distress, alert HEENT: normocephalic, atraumatic, PERRL Neck: normal inspection Respiratory/Chest: normal breath sounds, no respiratory distress, no accessory muscle use Cardiovascular/Chest: normal peripheral pulses, normal rate Abdomen: non tender, soft, no organomegaly, no mass Extremities: normal inspection Skin Exam: normal pigmentation Neurologic: alert, responsive Physical Exam Narrative RIGHT GROIN HERNIA NOTED AND REDUCIBLE. LIKELY INGUINAL BUT COULD POTENTIALLY BE FEMORAL. EASILY REDUCIBLE. NON TENDER. Last 24 Hour Vital Signs Date Time Temp Pulse Resp B/P (MAP) Pulse Ox O2 Delivery O2 Flow Rate FiO2 11/13/17 08:41 97.7 82 15 113/72 100 Room Air 11/13/17 00:00 97.3 77 20 120/66 98 Room Air 11/12/17 20:00 97.0 97 20 138/77 99 Room Air 11/12/17 15:47 97.6 98 20 124/81 100 Room Air 11/12/17 15:20 112 20 150/82 99 Room Air 11/12/17 11:34 97.8 92 19 119/67 99 Room Air Laboratory Tests Test 11/13/17 05:50 White Blood Count 5.4 K/UL (4.8-10.8) Red Blood Count 3.32 M/UL (4.20-5.40) L Hemoglobin 10.0 G/DL (12.0-16.0) L Hematocrit 32.3 % (37.0-47.0) L Mean Corpuscular Volume 97 FL (80-99) Mean Corpuscular Hemoglobin 30.0 PG (27.0-31.0) Mean Corpuscular Hemoglobin Concent 30.9 G/DL (32.0-36.0) L Red Cell Distribution Width 13.3 % (11.6-14.8) Platelet Count 272 K/UL (150-450) Mean Platelet Volume 5.4 FL (6.5-10.1) L Neutrophils (%) (Auto) 38.6 % (45.0-75.0) L Lymphocytes (%) (Auto) 40.6 % (20.0-45.0) Monocytes (%) (Auto) 12.1 % (1.0-10.0) H Eosinophils (%) (Auto) 6.9 % (0.0-3.0) H Basophils (%) (Auto) 1.7 % (0.0-2.0) Sodium Level 138 MMOL/L (136-145) Potassium Level 4.4 MMOL/L (3.5-5.1) Chloride Level 104 MMOL/L (98-107) Carbon Dioxide Level 30 MMOL/L (21-32) Anion Gap 4 mmol/L (5-15) L Blood Urea Nitrogen 18 mg/dL (7-18) Creatinine 0.9 MG/DL (0.55-1.30) Estimat Glomerular Filtration Rate > 60 mL/min (>60) Glucose Level 88 MG/DL (74-106) Calcium Level 8.7 MG/DL (8.5-10.1) Height (Feet): 5 Height (Inches): 9.00 Weight (Pounds): 134 Medications Current Medications Medications (Trade) Dose Ordered Sig/Luis Daniel Route PRN Reason Start Time Stop Time Status Last Admin Dose Admin Acetaminophen (Tylenol) 650 mg Q4H PRN ORAL Fever/Headache/Mild Pain 11/09/17 13:30 12/09/17 13:29 11/13/17 03:18 Al Hydroxide/Mg Hydroxide (Mylanta II) 30 ml Q6H PRN ORAL dyspepsia 11/07/17 11:45 12/07/17 11:44 Dextrose (Dextrose 50%) STAT PRN IV Hypoglycemia 11/07/17 11:45 12/07/17 11:44 Duloxetine HCl (Cymbalta) 30 mg DAILY ORAL 11/08/17 09:00 12/08/17 08:59 11/13/17 09:09 Gabapentin (Neurontin) 600 mg THREE TIMES A DAY ORAL 11/08/17 09:00 12/08/17 08:59 11/13/17 09:09 Lorazepam (Ativan) 0.5 mg Q4HR PRN ORAL For Anxiety 11/12/17 10:30 11/19/17 10:29 11/13/17 09:09 Magnesium Oxide (Mag-Ox 400mg) 400 mg THREE TIMES A DAY ORAL 11/08/17 13:00 12/08/17 12:59 11/13/17 09:09 Ondansetron HCl (Zofran) 4 mg Q6H PRN IVP Nausea & Vomiting 11/07/17 11:45 12/07/17 11:44 Polyethylene Glycol (Miralax) 17 gm HSPRN PRN ORAL Constipation 11/07/17 11:45 12/07/17 11:44 Quetiapine Fumarate (SEROquel) 50 mg BEDTIME ORAL 11/07/17 21:00 12/07/17 20:59 11/12/17 21:30 Zolpidem Tartrate (Ambien) 5 mg HSPRN PRN ORAL Insomnia 11/07/17 11:45 11/14/17 11:44 11/09/17 01:54 Assessment/Plan Problem List: (1) Inguinal hernia Assessment & Plan: 51F with right groin hernia which is easily reducible and initial. likely inguinal but possibly femoral. Afebrile, HD stable, exam as above. Patient with significant psychiatric history and poor historian. Furthermore during exam asked multiple times if I could prescribe her pain medication. Her hernia is present and easily reducible. I discussed repair with patient and recommended repair but on an elective basis and not in the acute hospital setting. I explained to her that if becomes incarcerated or strangulated will require emergent surgery but while reducible should be done electively. I gave patient my card and office info and advised her to follow up with me soon after discharge to schedule elective repair. patient expressed understanding. no acute surgical intervention necessary at this time will monitor hernia while in hospital setting until discharged thank you for this consultation. ICD Codes: K40.90 - Unilateral inguinal hernia, without obstruction or gangrene , not specified as recurrent SNOMED: [id number] Qualifiers: Qualified Codes: K40.90 - Unilateral inguinal hernia, without obstruction or gangrene, not specified as recurrent Status: stable Benyamini,Blaine Nov 13, 2017 11:07
[2017-11-13 12:07] VITALS: BP 134/81
--- NOTE | 2017-11-13 13:03 | Internal Med Progress Note ---
Subjective Date of Service: Nov 13, 2017 Physician Name Manuel Tong Attending Physician Virgilio Carvajal MD Current Medications Medications (Trade) Dose Ordered Sig/Luis Daniel Route PRN Reason Start Time Stop Time Status Last Admin Dose Admin Acetaminophen (Tylenol) 650 mg Q4H PRN ORAL Fever/Headache/Mild Pain 11/09/17 13:30 12/09/17 13:29 11/13/17 03:18 Al Hydroxide/Mg Hydroxide (Mylanta II) 30 ml Q6H PRN ORAL dyspepsia 11/07/17 11:45 12/07/17 11:44 Dextrose (Dextrose 50%) STAT PRN IV Hypoglycemia 11/07/17 11:45 12/07/17 11:44 Duloxetine HCl (Cymbalta) 30 mg DAILY ORAL 11/08/17 09:00 12/08/17 08:59 11/13/17 09:09 Gabapentin (Neurontin) 600 mg THREE TIMES A DAY ORAL 11/08/17 09:00 12/08/17 08:59 11/13/17 09:09 Lorazepam (Ativan) 0.5 mg Q4HR PRN ORAL For Anxiety 11/12/17 10:30 11/19/17 10:29 11/13/17 09:09 Magnesium Oxide (Mag-Ox 400mg) 400 mg THREE TIMES A DAY ORAL 11/08/17 13:00 12/08/17 12:59 11/13/17 09:09 Ondansetron HCl (Zofran) 4 mg Q6H PRN IVP Nausea & Vomiting 11/07/17 11:45 12/07/17 11:44 Polyethylene Glycol (Miralax) 17 gm HSPRN PRN ORAL Constipation 11/07/17 11:45 12/07/17 11:44 Quetiapine Fumarate (SEROquel) 50 mg BEDTIME ORAL 11/07/17 21:00 12/07/17 20:59 11/12/17 21:30 Zolpidem Tartrate (Ambien) 5 mg HSPRN PRN ORAL Insomnia 11/07/17 11:45 11/14/17 11:44 11/09/17 01:54 Allergies: Coded Allergies: ACETAMINOPHEN (Verified Allergy, Unknown, 10/28/17) HYDROCODONE (Verified Allergy, Unknown, 10/28/17) HYDROMORPHONE (Unverified Allergy, Unknown, 11/07/17) ROS Limited/Unobtainable: No Constitutional: Reports: no symptoms HEENT: Reports: no symptoms Cardiovascular: Reports: no symptoms Respiratory: Reports: no symptoms Gastrointestinal/Abdominal: Reports: no symptoms Genitourinary: Reports: no symptoms Neurologic/Psychiatric: Reports: no symptoms Subjective 51 YO F admitted with lower extremity weakness. Refused physical therapy. Cover for Int [facility]-Dr Carvajal. Objective Last Vital Signs Date Time Temp Pulse Resp B/P (MAP) Pulse Ox O2 Delivery O2 Flow Rate FiO2 11/13/17 12:07 98.6 89 20 134/81 100 Room Air Laboratory Tests Test 11/13/17 05:50 White Blood Count 5.4 K/UL (4.8-10.8) Red Blood Count 3.32 M/UL (4.20-5.40) L Hemoglobin 10.0 G/DL (12.0-16.0) L Hematocrit 32.3 % (37.0-47.0) L Mean Corpuscular Volume 97 FL (80-99) Mean Corpuscular Hemoglobin 30.0 PG (27.0-31.0) Mean Corpuscular Hemoglobin Concent 30.9 G/DL (32.0-36.0) L Red Cell Distribution Width 13.3 % (11.6-14.8) Platelet Count 272 K/UL (150-450) Mean Platelet Volume 5.4 FL (6.5-10.1) L Neutrophils (%) (Auto) 38.6 % (45.0-75.0) L Lymphocytes (%) (Auto) 40.6 % (20.0-45.0) Monocytes (%) (Auto) 12.1 % (1.0-10.0) H Eosinophils (%) (Auto) 6.9 % (0.0-3.0) H Basophils (%) (Auto) 1.7 % (0.0-2.0) Sodium Level 138 MMOL/L (136-145) Potassium Level 4.4 MMOL/L (3.5-5.1) Chloride Level 104 MMOL/L (98-107) Carbon Dioxide Level 30 MMOL/L (21-32) Anion Gap 4 mmol/L (5-15) L Blood Urea Nitrogen 18 mg/dL (7-18) Creatinine 0.9 MG/DL (0.55-1.30) Estimat Glomerular Filtration Rate > 60 mL/min (>60) Glucose Level 88 MG/DL (74-106) Calcium Level 8.7 MG/DL (8.5-10.1) Intake and Output 11/13/17 11/14/17 19:00 07:00 # Bowel Movements 1 Objective Objective General: No acute distress, awake and alert HEENT: NCAT, sclera anicteric, PERRL, EOMI. Neck: Supple, no significant jugular venous distention, Lungs: Good inspiratory effort, clear to auscultation bilaterally, no Wheeze or Rales. Heart: Regular rate and rhythm, normal S1/S2, no murmurs Abdomen: soft, nontender, nondistended. Normoactive bowel sounds. 15 cm mass right groin; reducible. / Rectal: Refused and deferred. Extremities: No Cyanosis , clubbing or edema. Neuro: A&O x 3, Able to move all extremities, lower extremities weakness. Skin: warm, no rashes or lesions Psych: Normal mood and affect Assessment/Plan Assessment/Plan Assessment/Plan (1) Inguinal hernia-surgery consult. (2) Abdominal pain (3) Lower extremities weakness etiology? (4) Depression with somatization (5) HTN Plan: See surgery consult-elective outpatient hernia repair Patient refused PT evaluation F/U with Dr. Gorman Recommendation DC Planning to SNF Full code Heparin SQ MANUEL TONG Nov 13, 2017 13:03
[2017-11-13] MEDS ORDERED: Morphine Sulfate 2mg/ml Inj IM PRN (13:45)
[2017-11-13 16:31] VITALS: BP 142/82
[2017-11-13] MEDS: traMADol 50mg tab ORAL PRN (17:39)
--- NOTE | 2017-11-13 17:51 | Pulmonology Progress Note ---
Assessment/Plan Problems: (1) Depression with somatization Assessment/Plan psych evaluation social service evaluation. mri negative difficult dc planning b/o homelessness and pts personality disorder Subjective ROS Limited/Unobtainable: No Allergies: Coded Allergies: ACETAMINOPHEN (Verified Allergy, Unknown, 10/28/17) HYDROCODONE (Verified Allergy, Unknown, 10/28/17) HYDROMORPHONE (Unverified Allergy, Unknown, 11/07/17) Objective Last 24 Hour Vital Signs Date Time Temp Pulse Resp B/P (MAP) Pulse Ox O2 Delivery O2 Flow Rate FiO2 11/13/17 16:31 98.8 96 17 142/82 100 Room Air 11/13/17 12:07 98.6 89 20 134/81 100 Room Air 11/13/17 08:41 97.7 82 15 113/72 100 Room Air 11/13/17 00:00 97.3 77 20 120/66 98 Room Air 11/12/17 20:00 97.0 97 20 138/77 99 Room Air Intake and Output 11/13/17 11/14/17 19:00 07:00 # Bowel Movements 1 Objective General Appearance: WD/WN HEENT: normocephalic, atraumatic Respiratory/Chest: chest wall non-tender, lungs clear Breasts: no masses Cardiovascular: normal peripheral pulses Abdomen: normal bowel sounds, soft, non tender Genitourinary: normal external genitalia Skin: no rash Laboratory Tests 11/13/17 05:50: White Blood Count 5.4, Red Blood Count 3.32L, Hemoglobin 10.0L, Hematocrit 32.3L , Mean Corpuscular Volume 97, Mean Corpuscular Hemoglobin 30.0, Mean Corpuscular Hemoglobin Concent 30.9L, Red Cell Distribution Width 13.3, Platelet Count 272, Mean Platelet Volume 5.4L, Neutrophils (%) (Auto) 38.6L, Lymphocytes (%) (Auto) 40.6, Monocytes (%) (Auto) 12.1H, Eosinophils (%) (Auto) 6.9H, Basophils (%) (Auto) 1.7, Sodium Level 138, Potassium Level 4.4, Chloride Level 104, Carbon Dioxide Level 30, Anion Gap 4L, Blood Urea Nitrogen 18, Creatinine 0.9, Estimat Glomerular Filtration Rate > 60, Glucose Level 88, Calcium Level 8.7 Current Medications Medications (Trade) Dose Ordered Sig/Luis Daniel Route PRN Reason Start Time Stop Time Status Last Admin Dose Admin Acetaminophen (Tylenol) 650 mg Q4H PRN ORAL Fever/Headache/Mild Pain 11/09/17 13:30 12/09/17 13:29 11/13/17 13:24 Al Hydroxide/Mg Hydroxide (Mylanta II) 30 ml Q6H PRN ORAL dyspepsia 11/07/17 11:45 12/07/17 11:44 Dextrose (Dextrose 50%) STAT PRN IV Hypoglycemia 11/07/17 11:45 12/07/17 11:44 Diphenhydramine HCl (Benadryl) 25 mg Q6H PRN ORAL Itching 11/13/17 17:45 12/13/17 17:44 11/13/17 17:38 Duloxetine HCl (Cymbalta) 30 mg DAILY ORAL 11/08/17 09:00 12/08/17 08:59 11/13/17 09:09 Gabapentin (Neurontin) 600 mg THREE TIMES A DAY ORAL 11/08/17 09:00 12/08/17 08:59 11/13/17 17:39 Lorazepam (Ativan) 0.5 mg Q4HR PRN ORAL For Anxiety 11/12/17 10:30 11/19/17 10:29 11/13/17 13:24 Magnesium Oxide (Mag-Ox 400mg) 400 mg THREE TIMES A DAY ORAL 11/08/17 13:00 12/08/17 12:59 11/13/17 17:39 Ondansetron HCl (Zofran) 4 mg Q6H PRN IVP Nausea & Vomiting 11/07/17 11:45 12/07/17 11:44 Polyethylene Glycol (Miralax) 17 gm HSPRN PRN ORAL Constipation 11/07/17 11:45 12/07/17 11:44 Quetiapine Fumarate (SEROquel) 50 mg BEDTIME ORAL 11/07/17 21:00 12/07/17 20:59 11/12/17 21:30 Tramadol HCl (Ultram) 50 mg Q6H PRN ORAL Moderate Pain (Pain Scale 4-6) 11/13/17 17:45 11/20/17 17:44 11/13/17 17:39 Zolpidem Tartrate (Ambien) 5 mg HSPRN PRN ORAL Insomnia 11/07/17 11:45 11/14/17 11:44 11/09/17 01:54 TEENA OLIVER Nov 13, 2017 17:50
[2017-11-13 19:00] VITALS: BP 140/86
[2017-11-13 19:30] VITALS: BP 123/74
[2017-11-14] VITALS (8 sets, daily range): BP systolic 87–123; BP diastolic 47–77
[2017-11-14] MEDS: traMADol 50mg tab ORAL PRN ×2 (00:31→06:33)
--- NOTE | 2017-11-14 00:31 | Progress Note ---
DATE: 11/13/2017 SUBJECTIVE: The patient is not presenting with genuine symptoms of seizure nor paraphasia. The patient has multiple complaints. She states that she is not able to go home "like this." The patient is having poor insight and judgment into her mental condition. The patient has multiple complaints including severe back pain. The patient states that she has shooting back pain and is unable to walk and she is paralyzed. The patient is very traumatic and complaining of anxiety and depressive symptoms, however, she does not appear to be depressed nor anxious. MENTAL STATUS EXAMINATION: The patient is alert and oriented to time, self, place, and situation she is in. Mood is neutral. Affect is full range, congruent with mood. Thought process is linear. Thought content, no suicidal or homicidal ideations. ASSESSMENT: Depression and anxiety by history. The patient is playing a fiddle. PLAN: 1. We will continue the Cymbalta and Seroquel. 2. The patient is not meeting the criteria for the hold. Alla Gorman M.D. DR: TREVOR JOB#: [id number] CC:
[2017-11-14] MEDS: LORazepam 0.5mg tab ORAL PRN (05:39)
[2017-11-14 07:26] LABS: BASOPHILS % (AUTO) 2.4 % (0.0-2.0); EOSINOPHILS % (AUTO) 6.9 % (0.0-3.0); LYMPHOCYTES % (AUTO) 44.5 % (20.0-45.0); MEAN CORPUSCULAR HEMOGLOBIN 31.7 PG (27.0-31.0); MEAN CORPUSCULAR HGB CONC 32.7 G/DL (32.0-36.0); MEAN CORPUSCULAR VOLUME 97 FL (80-99); MEAN PLATELET VOLUME 5.9 FL (6.5-10.1); MONOCYTES % (AUTO) 11.7 % (1.0-10.0); NEUTROPHILS % (AUTO) 34.5 % (45.0-75.0); PLATELET COUNT 296 K/UL (150-450); RED BLOOD COUNT 3.27 M/UL (4.20-5.40); RED CELL DISTRIBUTION WIDTH 13.2 % (11.6-14.8); WHITE BLOOD COUNT 5.8 K/UL (4.8-10.8)
[2017-11-14 07:44] LABS: ANION GAP 4 mmol/L (5-15); CALCIUM 9.1 MG/DL (8.5-10.1); CARBON DIOXIDE 31 MMOL/L (21-32); CHLORIDE 103 MMOL/L (98-107); CREATININE 0.9 MG/DL (0.55-1.30); GLOMERULAR FILTRATION RATE > 60 mL/min (>60); POTASSIUM 4.3 MMOL/L (3.5-5.1); SODIUM 138 MMOL/L (136-145)
[2017-11-14] MEDS: Magnesium Oxide 400mg tab ORAL SCH ×3 (08:43→17:43)
[2017-11-14] MEDS: DULoxetine 30mg cap ORAL SCH (08:43)
--- NOTE | 2017-11-14 11:01 | Diagnostic Imaging Report ---
APPROVED REPORT CPT Code: 37289 Present Symptoms BILATERAL: Imaging reveals a patent deep venous system bilaterally. There is no evidence of thrombus within the femoral, popliteal or tibial segments. The greater saphenous veins are also within normal limits. Doppler indicates normal spontaneous flow within these segments.
--- NOTE | 2017-11-14 16:43 | General Surgery Progress Note ---
General Surgery-Progress Note Subjective Additional Comments Patient seen and examined at bedside. No acute events. She is very manipulative and continues to request me to order her pain medication. She is very inconsistent with her exam (outboard technician present during each exam). Still has easily reducible right inguinal hernia which she cannot exactly describe symptoms of and only answers with pain and request for pain meds. I am very concerned about her hand written note using her primary physicians name and info with requests. I contacted Dr. Patric Cummings today to discuss this letter. He has no knowledge of this letter and neither do his staff. the letter was not written at their request as she had stated. I believe she is using him and his office name to confuse or mislead other physicians. when confronted about this patient admitted to above and admitted that she was being misleading but does not state why. she just states "its not a crime but maybe just a misdemeanor" I believe patient is malingering and her gain is a place to stay, pain medication, diet, and care. She is acting like the hospital is her personal hotel room. While being "sick" washes her clothes, spends hours putting on her make up, and spends hours on her phone. When observed from outside the room without her noticing she is fine, comfortable and moving around. when staff or physician in room she suddenly begins to "have seizures" and is suddenly "paralyzed" and requires pain medication and her hernia is causing discomfort. Objective Last 24 Hour Vital Signs Date Time Temp Pulse Resp B/P (MAP) Pulse Ox O2 Delivery O2 Flow Rate FiO2 11/14/17 16:00 98.1 62 19 109/77 99 11/14/17 12:04 97.9 93 18 123/76 99 11/14/17 08:50 97.3 81 20 98/61 100 11/14/17 08:07 97.0 11/14/17 06:09 109/71 100 Room Air 11/14/17 04:00 96 Room Air 11/14/17 04:00 97.0 62 20 87/47 96 Room Air 11/14/17 00:00 97.7 72 18 96/63 100 Room Air 11/14/17 00:00 100 Room Air 11/13/17 19:30 97.9 88 19 123/74 100 Room Air 11/13/17 19:00 97.5 94 20 140/86 100 Room Air I&O Intake and Output 11/14/17 11/15/17 19:00 07:00 Intake Total 480 ml Output Total 600 ml Balance -120 ml Intake Oral 480 ml Output Urine Total 600 ml Laboratory Tests Test 11/14/17 04:40 White Blood Count 5.8 K/UL (4.8-10.8) Red Blood Count 3.27 M/UL (4.20-5.40) L Hemoglobin 10.4 G/DL (12.0-16.0) L Hematocrit 31.7 % (37.0-47.0) L Mean Corpuscular Volume 97 FL (80-99) Mean Corpuscular Hemoglobin 31.7 PG (27.0-31.0) H Mean Corpuscular Hemoglobin Concent 32.7 G/DL (32.0-36.0) Red Cell Distribution Width 13.2 % (11.6-14.8) Platelet Count 296 K/UL (150-450) Mean Platelet Volume 5.9 FL (6.5-10.1) L Neutrophils (%) (Auto) 34.5 % (45.0-75.0) L Lymphocytes (%) (Auto) 44.5 % (20.0-45.0) Monocytes (%) (Auto) 11.7 % (1.0-10.0) H Eosinophils (%) (Auto) 6.9 % (0.0-3.0) H Basophils (%) (Auto) 2.4 % (0.0-2.0) H Sodium Level 138 MMOL/L (136-145) Potassium Level 4.3 MMOL/L (3.5-5.1) Chloride Level 103 MMOL/L (98-107) Carbon Dioxide Level 31 MMOL/L (21-32) Anion Gap 4 mmol/L (5-15) L Blood Urea Nitrogen 23 mg/dL (7-18) H Creatinine 0.9 MG/DL (0.55-1.30) Estimat Glomerular Filtration Rate > 60 mL/min (>60) Glucose Level 97 MG/DL (74-106) Calcium Level 9.1 MG/DL (8.5-10.1) Additional Comments right inguinal hernia, easily reducible. Plan Problems: (1) Inguinal hernia Assessment & Plan: 51F with right groin hernia which is easily reducible and initial. likely inguinal but possibly femoral. Afebrile, HD stable, exam as above. Patient with significant psychiatric history and poor historian. Her hernia is present and easily reducible. I discussed repair with patient and recommended repair but on an elective basis and not in the acute hospital setting. I explained to her that if becomes incarcerated or strangulated will require emergent surgery but while reducible should be done electively. I gave patient my card and office info and advised her to follow up with me soon after discharge to schedule elective repair. no acute surgical intervention necessary at this time can d/c from surgical standpoint. thank you for this consultation. Blaine Malave Nov 14, 2017 16:43
--- NOTE | 2017-11-14 17:05 | Pulmonology Progress Note ---
Assessment/Plan Problems: (1) Depression with somatization Assessment/Plan no new complains psych evaluation social service evaluation. mri negative difficult dc planning b/o homelessness and pts personality disorder Subjective ROS Limited/Unobtainable: No Constitutional: Reports: no symptoms HEENT: Repors: no symptoms Allergies: Coded Allergies: ACETAMINOPHEN (Verified Allergy, Unknown, 10/28/17) HYDROCODONE (Verified Allergy, Unknown, 10/28/17) HYDROMORPHONE (Unverified Allergy, Unknown, 11/07/17) Objective Last 24 Hour Vital Signs Date Time Temp Pulse Resp B/P (MAP) Pulse Ox O2 Delivery O2 Flow Rate FiO2 11/14/17 16:00 98.1 62 19 109/77 99 11/14/17 12:04 97.9 93 18 123/76 99 11/14/17 08:50 97.3 81 20 98/61 100 11/14/17 08:07 97.0 11/14/17 06:09 109/71 100 Room Air 11/14/17 04:00 96 Room Air 11/14/17 04:00 97.0 62 20 87/47 96 Room Air 11/14/17 00:00 97.7 72 18 96/63 100 Room Air 11/14/17 00:00 100 Room Air 11/13/17 19:30 97.9 88 19 123/74 100 Room Air 11/13/17 19:00 97.5 94 20 140/86 100 Room Air Intake and Output 11/14/17 11/15/17 19:00 07:00 Intake Total 480 ml Output Total 600 ml Balance -120 ml Intake Oral 480 ml Output Urine Total 600 ml Objective General Appearance: WD/WN HEENT: normocephalic, atraumatic Respiratory/Chest: chest wall non-tender, lungs clear Breasts: no masses Cardiovascular: normal peripheral pulses Abdomen: normal bowel sounds, soft, non tender Genitourinary: normal external genitalia Skin: no rash Laboratory Tests 11/14/17 04:40: White Blood Count 5.8, Red Blood Count 3.27L, Hemoglobin 10.4L, Hematocrit 31.7L , Mean Corpuscular Volume 97, Mean Corpuscular Hemoglobin 31.7H, Mean Corpuscular Hemoglobin Concent 32.7, Red Cell Distribution Width 13.2, Platelet Count 296, Mean Platelet Volume 5.9L, Neutrophils (%) (Auto) 34.5L, Lymphocytes (%) (Auto) 44.5, Monocytes (%) (Auto) 11.7H, Eosinophils (%) (Auto) 6.9H, Basophils (%) (Auto) 2.4H, Sodium Level 138, Potassium Level 4.3, Chloride Level 103, Carbon Dioxide Level 31, Anion Gap 4L, Blood Urea Nitrogen 23H, Creatinine 0.9, Estimat Glomerular Filtration Rate > 60, Glucose Level 97, Calcium Level 9.1 Current Medications Medications (Trade) Dose Ordered Sig/Luis Daniel Route PRN Reason Start Time Stop Time Status Last Admin Dose Admin Acetaminophen (Tylenol) 650 mg Q4H PRN ORAL Fever/Headache/Mild Pain 11/09/17 13:30 12/09/17 13:29 11/13/17 13:24 Al Hydroxide/Mg Hydroxide (Mylanta II) 30 ml Q6H PRN ORAL dyspepsia 11/07/17 11:45 12/07/17 11:44 Dextrose (Dextrose 50%) STAT PRN IV Hypoglycemia 11/07/17 11:45 12/07/17 11:44 Duloxetine HCl (Cymbalta) 30 mg DAILY ORAL 11/08/17 09:00 12/08/17 08:59 11/14/17 08:43 Gabapentin (Neurontin) 100 mg THREE TIMES A DAY ORAL 11/14/17 18:00 12/14/17 17:59 Magnesium Oxide (Mag-Ox 400mg) 400 mg THREE TIMES A DAY ORAL 11/08/17 13:00 12/08/17 12:59 11/14/17 08:43 Ondansetron HCl (Zofran) 4 mg Q6H PRN IVP Nausea & Vomiting 11/07/17 11:45 12/07/17 11:44 Polyethylene Glycol (Miralax) 17 gm HSPRN PRN ORAL Constipation 11/07/17 11:45 12/07/17 11:44 TEENA OLIVER Nov 14, 2017 17:05
--- NOTE | 2017-11-14 18:47 | Internal Med Progress Note ---
Subjective Date of Service: Nov 14, 2017 Physician Name Manuel Tong Attending Physician Virgilio Carvajal MD Current Medications Medications (Trade) Dose Ordered Sig/Luis Daniel Route PRN Reason Start Time Stop Time Status Last Admin Dose Admin Acetaminophen (Tylenol) 650 mg Q4H PRN ORAL Fever/Headache/Mild Pain 11/09/17 13:30 12/09/17 13:29 11/13/17 13:24 Al Hydroxide/Mg Hydroxide (Mylanta II) 30 ml Q6H PRN ORAL dyspepsia 11/07/17 11:45 12/07/17 11:44 Dextrose (Dextrose 50%) STAT PRN IV Hypoglycemia 11/07/17 11:45 12/07/17 11:44 Duloxetine HCl (Cymbalta) 30 mg DAILY ORAL 11/08/17 09:00 12/08/17 08:59 11/14/17 08:43 Gabapentin (Neurontin) 100 mg THREE TIMES A DAY ORAL 11/14/17 18:00 12/14/17 17:59 11/14/17 17:43 Magnesium Oxide (Mag-Ox 400mg) 400 mg THREE TIMES A DAY ORAL 11/08/17 13:00 12/08/17 12:59 11/14/17 17:43 Ondansetron HCl (Zofran) 4 mg Q6H PRN IVP Nausea & Vomiting 11/07/17 11:45 12/07/17 11:44 Polyethylene Glycol (Miralax) 17 gm HSPRN PRN ORAL Constipation 11/07/17 11:45 12/07/17 11:44 11/14/17 17:43 Allergies: Coded Allergies: ACETAMINOPHEN (Verified Allergy, Unknown, 10/28/17) HYDROCODONE (Verified Allergy, Unknown, 10/28/17) HYDROMORPHONE (Unverified Allergy, Unknown, 11/07/17) ROS Limited/Unobtainable: No Constitutional: Reports: no symptoms HEENT: Reports: no symptoms Cardiovascular: Reports: no symptoms Respiratory: Reports: no symptoms Gastrointestinal/Abdominal: Reports: no symptoms Genitourinary: Reports: no symptoms Neurologic/Psychiatric: Reports: no symptoms Subjective 51 YO F admitted with lower extremity weakness. Await placement at senior care facility. 1:1 sitter for fall precautions. Cover for Int Jar[facility]-Dr Carvajal. Objective Last Vital Signs Date Time Temp Pulse Resp B/P (MAP) Pulse Ox O2 Delivery O2 Flow Rate FiO2 11/14/17 16:00 98.1 62 19 109/77 99 11/14/17 06:09 Room Air Laboratory Tests Test 11/14/17 04:40 White Blood Count 5.8 K/UL (4.8-10.8) Red Blood Count 3.27 M/UL (4.20-5.40) L Hemoglobin 10.4 G/DL (12.0-16.0) L Hematocrit 31.7 % (37.0-47.0) L Mean Corpuscular Volume 97 FL (80-99) Mean Corpuscular Hemoglobin 31.7 PG (27.0-31.0) H Mean Corpuscular Hemoglobin Concent 32.7 G/DL (32.0-36.0) Red Cell Distribution Width 13.2 % (11.6-14.8) Platelet Count 296 K/UL (150-450) Mean Platelet Volume 5.9 FL (6.5-10.1) L Neutrophils (%) (Auto) 34.5 % (45.0-75.0) L Lymphocytes (%) (Auto) 44.5 % (20.0-45.0) Monocytes (%) (Auto) 11.7 % (1.0-10.0) H Eosinophils (%) (Auto) 6.9 % (0.0-3.0) H Basophils (%) (Auto) 2.4 % (0.0-2.0) H Sodium Level 138 MMOL/L (136-145) Potassium Level 4.3 MMOL/L (3.5-5.1) Chloride Level 103 MMOL/L (98-107) Carbon Dioxide Level 31 MMOL/L (21-32) Anion Gap 4 mmol/L (5-15) L Blood Urea Nitrogen 23 mg/dL (7-18) H Creatinine 0.9 MG/DL (0.55-1.30) Estimat Glomerular Filtration Rate > 60 mL/min (>60) Glucose Level 97 MG/DL (74-106) Calcium Level 9.1 MG/DL (8.5-10.1) Intake and Output 11/14/17 11/15/17 19:00 07:00 Intake Total 1230 ml Output Total 600 ml Balance 630 ml Intake Oral 1230 ml Output Urine Total 600 ml # Voids 2 Objective Objective General: No acute distress, awake and alert HEENT: NCAT, sclera anicteric, PERRL, EOMI. Neck: Supple, no significant jugular venous distention, Lungs: Good inspiratory effort, clear to auscultation bilaterally, no Wheeze or Rales. Heart: Regular rate and rhythm, normal S1/S2, no murmurs Abdomen: soft, nontender, nondistended. Normoactive bowel sounds. 15 cm mass right groin; reducible. / Rectal: Refused and deferred. Extremities: No Cyanosis , clubbing or edema. Neuro: A&O x 3, Able to move all extremities, lower extremities weakness. Skin: warm, no rashes or lesions Psych: Normal mood and affect Assessment/Plan Assessment/Plan Assessment/Plan (1) Inguinal hernia-surgery consult. (2) Abdominal pain (3) Lower extremities weakness etiology? (4) Depression with somatization (5) HTN Plan: Await senior living fac placement See surgery consult-elective outpatient hernia repair Patient refused PT evaluation F/U with Dr. Gorman Recommendation [place] Planning to SNF Full code Heparin SQ MANUEL TONG Nov 14, 2017 18:47
[2017-11-15 01:20] VITALS: BP 130/74
[2017-11-15 04:00] VITALS: BP 127/68
--- NOTE | 2017-11-15 06:30 | Progress Note ---
DATE: 11/14/2017 SUBJECTIVE: The patient has been constantly having different complaints and requests. She has made a falsified letter today and presented to our surgeon, Dr. Malave. We called her primary doctor, who stated that she never gave the patient any permission or consent to the content of that letter to Dr. Malave. The patient presenting with symptoms that are consistent with antisocial behaviors. She is lying and manipulating staff, complaining of severe back pain, asking for pain medications like morphine and Benadryl injectables. Today, she presented with a hand-written note giving her primary physician's name and information and misleading the physician on the case. We contacted , who is the patient's primary care doctor, who has had no knowledge of the letter she presented to us, and when we confronted her in regard to this letter, she admitted that she was being misleading. The patient is checking her symptoms, she states that she is paralyzed and is unable to walk, however, she was observed walking to the bathroom and she is sitting upright in her bed with her knee bent and humming and doing yoga. She is also putting makeup on and doing her hair and listening to loud music in her room. When we discussed the discharge, she stated that she is not able to walk. She has been refusing to participate in physical therapy. I believe she is afraid that the physical therapist would find out that the patient is actually not paralyzed. Her pain medication was discontinued and the case was discussed with Dr. Carvajal. The patient states that she is refusing to leave and we were unable to discharge her as she is unable to walk. MENTAL STATUS EXAMINATION: The patient is alert and oriented x4. Her mood is euthymic. Affect is full range. Congruent with mood. Thought process is linear. Thought content, there is no suicidal or homicidal ideations. No delusions. No auditory or visual hallucinations. ASSESSMENT: Her symptoms are consistent with antisocial behaviors. She is using hospitals for placement purposes. She is homeless. I do recommend to discharge the patient. Alla Gorman M.D. DR: EDER JOB#: [id number] CC:
[2017-11-15 08:31] LABS: BASOPHILS % (AUTO) 1.7 % (0.0-2.0); EOSINOPHILS % (AUTO) 6.9 % (0.0-3.0); LYMPHOCYTES % (AUTO) 32.9 % (20.0-45.0); MEAN CORPUSCULAR HEMOGLOBIN 31.6 PG (27.0-31.0); MEAN CORPUSCULAR HGB CONC 32.5 G/DL (32.0-36.0); MEAN CORPUSCULAR VOLUME 97 FL (80-99); MEAN PLATELET VOLUME 6.1 FL (6.5-10.1); MONOCYTES % (AUTO) 8.3 % (1.0-10.0); NEUTROPHILS % (AUTO) 50.1 % (45.0-75.0); PLATELET COUNT 324 K/UL (150-450); RED BLOOD COUNT 3.61 M/UL (4.20-5.40); RED CELL DISTRIBUTION WIDTH 13.2 % (11.6-14.8); WHITE BLOOD COUNT 5.4 K/UL (4.8-10.8)
[2017-11-15 08:37] LABS: ANION GAP 2 mmol/L (5-15); CALCIUM 9.3 MG/DL (8.5-10.1); CARBON DIOXIDE 33 MMOL/L (21-32); CHLORIDE 102 MMOL/L (98-107); CREATININE 0.8 MG/DL (0.55-1.30); GLOMERULAR FILTRATION RATE > 60 mL/min (>60); POTASSIUM 4.4 MMOL/L (3.5-5.1); SODIUM 137 MMOL/L (136-145)
[2017-11-15 08:46] VITALS: BP 126/76
[2017-11-15] MEDS: DULoxetine 30mg cap ORAL SCH (09:00)
[2017-11-15] MEDS: Magnesium Oxide 400mg tab ORAL SCH ×3 (09:09→17:53)
[2017-11-15 11:44] VITALS: BP 100/64
--- NOTE | 2017-11-15 12:49 | Pulmonology Progress Note ---
Assessment/Plan Assessment/Plan ASSESSMENT depression with somatization anxiety LE weakness inguinal hernia anemia lumbar spondylosis L3-4,L4-5,L5-S1 Hx of HTN PLAN OF CARE [facility] floor urine tox screen negative MRI brain negative for any acute IC pathology MRI L spine no acute abnormality but evidence of lumbar spondylosis L3-4, L4-5, L5-S1 psych follows on Cymbalta and Seroquel per psych patient is not holdable PT eval and Rx pain management, no narcotics surgery eval done, hernia repair as outpatient DVT prophylaxis awaiting for placement PT eval states that patient subjective reports are inconsistent with objective findings : patient moves arms but reports paralysis BUE and BLE. Per PT patient has no skilled needs at this time , and he discharged patient from PT services. Psych note states that patient is using hospitals for placement purposes. She recommend to discharge the patient. dc plan in progress case discussed and evaluated by supervising physician Subjective Allergies: Coded Allergies: ACETAMINOPHEN (Verified Allergy, Unknown, 10/28/17) HYDROCODONE (Verified Allergy, Unknown, 10/28/17) HYDROMORPHONE (Unverified Allergy, Unknown, 11/07/17) All Systems: reviewed and negative except above - awaiting for palcement Subjective awaiting for placement reports back pain, wants narcotics Objective Last 24 Hour Vital Signs Date Time Temp Pulse Resp B/P (MAP) Pulse Ox O2 Delivery O2 Flow Rate FiO2 11/15/17 11:44 98.1 78 20 100/64 100 11/15/17 08:46 98.4 75 20 126/76 100 11/15/17 04:00 97.2 71 18 127/68 100 Room Air 11/15/17 01:20 97.0 77 18 130/74 100 Room Air 11/14/17 23:56 97.2 70 18 99/65 100 Room Air 11/14/17 19:48 97.3 74 18 118/65 100 Room Air 11/14/17 16:00 98.1 62 19 109/77 99 Intake and Output 11/15/17 11/16/17 19:00 07:00 # Voids 1 # Bowel Movements 1 General Appearance: no acute distress HEENT: normocephalic, atraumatic, anicteric, mucous membranes moist Respiratory/Chest: lungs clear, no respiratory distress, no accessory muscle use Cardiovascular: normal peripheral pulses, normal rate, no JVD Abdomen: normal bowel sounds, soft, non tender, non distended Genitourinary: normal external genitalia Extremities: no edema, pedal pulses normal Neurologic/Psychiatric: alert, oriented x 3, responsive, other Musculoskeletal: normal muscle bulk Laboratory Tests 11/15/17 06:50: White Blood Count 5.4, Red Blood Count 3.61L, Hemoglobin 11.4L, Hematocrit 35.1L , Mean Corpuscular Volume 97, Mean Corpuscular Hemoglobin 31.6H, Mean Corpuscular Hemoglobin Concent 32.5, Red Cell Distribution Width 13.2, Platelet Count 324, Mean Platelet Volume 6.1L, Neutrophils (%) (Auto) 50.1, Lymphocytes ( %) (Auto) 32.9, Monocytes (%) (Auto) 8.3, Eosinophils (%) (Auto) 6.9H, Basophils (%) (Auto) 1.7, Sodium Level 137, Potassium Level 4.4, Chloride Level 102, Carbon Dioxide Level 33H, Anion Gap 2L, Blood Urea Nitrogen 16, Creatinine 0.8, Estimat Glomerular Filtration Rate > 60, Glucose Level 94, Calcium Level 9.3 Current Medications Medications (Trade) Dose Ordered Sig/Luis Daniel Route PRN Reason Start Time Stop Time Status Last Admin Dose Admin Acetaminophen (Tylenol) 650 mg Q4H PRN ORAL Fever/Headache/Mild Pain 11/09/17 13:30 12/09/17 13:29 11/13/17 13:24 Al Hydroxide/Mg Hydroxide (Mylanta II) 30 ml Q6H PRN ORAL dyspepsia 11/07/17 11:45 12/07/17 11:44 Dextrose (Dextrose 50%) STAT PRN IV Hypoglycemia 11/07/17 11:45 12/07/17 11:44 Duloxetine HCl (Cymbalta) 30 mg DAILY ORAL 11/08/17 09:00 12/08/17 08:59 11/14/17 08:43 Gabapentin (Neurontin) 100 mg THREE TIMES A DAY ORAL 11/14/17 18:00 12/14/17 17:59 11/15/17 09:09 Magnesium Oxide (Mag-Ox 400mg) 400 mg THREE TIMES A DAY ORAL 11/08/17 13:00 12/08/17 12:59 11/15/17 09:09 Ondansetron HCl (Zofran) 4 mg Q6H PRN IVP Nausea & Vomiting 11/07/17 11:45 12/07/17 11:44 Polyethylene Glycol (Miralax) 17 gm HSPRN PRN ORAL Constipation 11/07/17 11:45 12/07/17 11:44 11/14/17 17:43 Eb ([facility])Yen NP Nov 15, 2017 12:49
[2017-11-15 15:50] VITALS: BP 120/67
--- NOTE | 2017-11-15 19:30 | Internal Med Progress Note ---
Subjective Date of Service: Nov 15, 2017 Physician Name AnaManuel Attending Physician Virgilio Carvajal MD Current Medications Medications (Trade) Dose Ordered Sig/Luis Daniel Route PRN Reason Start Time Stop Time Status Last Admin Dose Admin Acetaminophen (Tylenol) 650 mg Q4H PRN ORAL Fever/Headache/Mild Pain 11/09/17 13:30 12/09/17 13:29 11/13/17 13:24 Al Hydroxide/Mg Hydroxide (Mylanta II) 30 ml Q6H PRN ORAL dyspepsia 11/07/17 11:45 12/07/17 11:44 Dextrose (Dextrose 50%) STAT PRN IV Hypoglycemia 11/07/17 11:45 12/07/17 11:44 Magnesium Oxide (Mag-Ox 400mg) 400 mg THREE TIMES A DAY ORAL 11/08/17 13:00 12/08/17 12:59 11/15/17 17:53 Ondansetron HCl (Zofran) 4 mg Q6H PRN IVP Nausea & Vomiting 11/07/17 11:45 12/07/17 11:44 Polyethylene Glycol (Miralax) 17 gm HSPRN PRN ORAL Constipation 11/07/17 11:45 12/07/17 11:44 11/14/17 17:43 Allergies: Coded Allergies: ACETAMINOPHEN (Verified Allergy, Unknown, 10/28/17) HYDROCODONE (Verified Allergy, Unknown, 10/28/17) HYDROMORPHONE (Unverified Allergy, Unknown, 11/07/17) ROS Limited/Unobtainable: No Constitutional: Reports: no symptoms HEENT: Reports: no symptoms Cardiovascular: Reports: no symptoms Respiratory: Reports: no symptoms Gastrointestinal/Abdominal: Reports: no symptoms Genitourinary: Reports: no symptoms Neurologic/Psychiatric: Reports: no symptoms Subjective 51 YO F admitted with lower extremity weakness. Await placement at assisted facility. Cover for Int Med-Dr Carvajal. Objective Last Vital Signs Date Time Temp Pulse Resp B/P (MAP) Pulse Ox O2 Delivery O2 Flow Rate FiO2 11/15/17 15:50 98.4 81 20 120/67 100 11/15/17 04:00 Room Air Laboratory Tests Test 11/15/17 06:50 White Blood Count 5.4 K/UL (4.8-10.8) Red Blood Count 3.61 M/UL (4.20-5.40) L Hemoglobin 11.4 G/DL (12.0-16.0) L Hematocrit 35.1 % (37.0-47.0) L Mean Corpuscular Volume 97 FL (80-99) Mean Corpuscular Hemoglobin 31.6 PG (27.0-31.0) H Mean Corpuscular Hemoglobin Concent 32.5 G/DL (32.0-36.0) Red Cell Distribution Width 13.2 % (11.6-14.8) Platelet Count 324 K/UL (150-450) Mean Platelet Volume 6.1 FL (6.5-10.1) L Neutrophils (%) (Auto) 50.1 % (45.0-75.0) Lymphocytes (%) (Auto) 32.9 % (20.0-45.0) Monocytes (%) (Auto) 8.3 % (1.0-10.0) Eosinophils (%) (Auto) 6.9 % (0.0-3.0) H Basophils (%) (Auto) 1.7 % (0.0-2.0) Sodium Level 137 MMOL/L (136-145) Potassium Level 4.4 MMOL/L (3.5-5.1) Chloride Level 102 MMOL/L (98-107) Carbon Dioxide Level 33 MMOL/L (21-32) H Anion Gap 2 mmol/L (5-15) L Blood Urea Nitrogen 16 mg/dL (7-18) Creatinine 0.8 MG/DL (0.55-1.30) Estimat Glomerular Filtration Rate > 60 mL/min (>60) Glucose Level 94 MG/DL (74-106) Calcium Level 9.3 MG/DL (8.5-10.1) Intake and Output 11/15/17 11/16/17 19:00 07:00 Intake Total 840 ml Balance 840 ml Intake Oral 840 ml # Voids 5 # Bowel Movements 1 Objective Objective General: No acute distress, awake and alert HEENT: NCAT, sclera anicteric, PERRL, EOMI. Neck: Supple, no significant jugular venous distention, Lungs: Good inspiratory effort, clear to auscultation bilaterally, no Wheeze or Rales. Heart: Regular rate and rhythm, normal S1/S2, no murmurs Abdomen: soft, nontender, nondistended. Normoactive bowel sounds. 15 cm mass right groin; reducible. / Rectal: Refused and deferred. Extremities: No Cyanosis , clubbing or edema. Neuro: A&O x 3, Able to move all extremities, lower extremities weakness. Skin: warm, no rashes or lesions Psych: Normal mood and affect Assessment/Plan Assessment/Plan Assessment/Plan (1) Inguinal hernia-surgery consult. (2) Abdominal pain (3) Lower extremities weakness etiology? (4) Depression with somatization (5) HTN Plan: Await [facility] fac placement See surgery consult-elective outpatient hernia repair Patient refused PT evaluation F/U with Dr. Gorman Recommendation [place] Planning to SNF Full code Heparin SQ MANUEL TONG Nov 15, 2017 19:30
[2017-11-15 20:00] VITALS: BP 142/74
[2017-11-16] VITALS: BP 131/79
[2017-11-16] MEDS: Mylanta II UD 30ml ORAL PRN ×3 (03:12→20:55)
[2017-11-16 04:00] VITALS: BP 123/82
[2017-11-16 07:59] VITALS: BP 127/79
[2017-11-16] MEDS: Magnesium Oxide 400mg tab ORAL SCH ×3 (09:08→17:04)
[2017-11-16 10:51] LABS: BASOPHILS % (AUTO) 1.1 % (0.0-2.0); EOSINOPHILS % (AUTO) 2.9 % (0.0-3.0); LYMPHOCYTES % (AUTO) 23.8 % (20.0-45.0); MEAN CORPUSCULAR HEMOGLOBIN 31.2 PG (27.0-31.0); MEAN CORPUSCULAR HGB CONC 31.9 G/DL (32.0-36.0); MEAN CORPUSCULAR VOLUME 98 FL (80-99); MEAN PLATELET VOLUME 5.8 FL (6.5-10.1); MONOCYTES % (AUTO) 7.2 % (1.0-10.0); NEUTROPHILS % (AUTO) 65.1 % (45.0-75.0); PLATELET COUNT 415 K/UL (150-450); RED BLOOD COUNT 4.22 M/UL (4.20-5.40); RED CELL DISTRIBUTION WIDTH 13.4 % (11.6-14.8)
[2017-11-16 11:03] LABS: ANION GAP 7 mmol/L (5-15); CALCIUM 9.5 MG/DL (8.5-10.1); CARBON DIOXIDE 33 MMOL/L (21-32); CHLORIDE 99 MMOL/L (98-107); CREATININE 0.9 MG/DL (0.55-1.30); GLOMERULAR FILTRATION RATE > 60 mL/min (>60); POTASSIUM 3.6 MMOL/L (3.5-5.1); SODIUM 139 MMOL/L (136-145)
[2017-11-16 11:17] VITALS: BP 117/73
--- NOTE | 2017-11-16 12:51 | Pulmonology Progress Note ---
Assessment/Plan Assessment/Plan ASSESSMENT depression with somatization anxiety LE weakness inguinal hernia anemia lumbar spondylosis L3-4,L4-5,L5-S1 Hx of HTN PLAN OF CARE [facility] floor urine tox screen negative MRI brain negative for any acute IC pathology MRI L spine no acute abnormality but evidence of lumbar spondylosis L3-4, L4-5, L5-S1 psych follows on Cymbalta and Seroquel per psych patient can not be hold PT eval and Rx was ordered pain management, no narcotics surgery eval done, hernia repair as outpatient DVT prophylaxis awaiting for placement PT eval stated that patient subjective reports were inconsistent with objective findings : patient able to move her arms but reports paralysis BUE and BLE. Per PT - patient had no skilled needs at this time , and PT discharged patient from PT services. Psych note stated that patient using hospitals for placement purposes. She recommend to discharge the patient. dc plan in progress case discussed and evaluated by supervising physician Subjective Allergies: Coded Allergies: ACETAMINOPHEN (Verified Allergy, Unknown, 10/28/17) HYDROCODONE (Verified Allergy, Unknown, 10/28/17) HYDROMORPHONE (Unverified Allergy, Unknown, 11/07/17) Subjective awaiting for placement reports back pain and wants narcotics Objective Last 24 Hour Vital Signs Date Time Temp Pulse Resp B/P (MAP) Pulse Ox O2 Delivery O2 Flow Rate FiO2 11/16/17 11:17 97.4 97 16 117/73 99 Room Air 11/16/17 07:59 98.2 76 16 127/79 100 Room Air 11/16/17 04:00 97.9 89 18 123/82 99 Room Air 11/16/17 00:00 97.6 92 18 131/79 97 Room Air 11/15/17 20:00 98.1 95 18 142/74 Room Air 11/15/17 15:50 98.4 81 20 120/67 100 Intake and Output 11/16/17 11/17/17 19:00 07:00 # Voids 1 Objective General Appearance: no acute distress HEENT: normocephalic, atraumatic, anicteric, mucous membranes moist Respiratory/Chest: lungs clear, no respiratory distress, no accessory muscle use Cardiovascular: normal peripheral pulses, normal rate, no JVD Abdomen: normal bowel sounds, soft, non tender, non distended Genitourinary: normal external genitalia Extremities: no edema, pedal pulses normal Neurologic/Psychiatric: alert, oriented x 3, responsive, Musculoskeletal: normal muscle bulk Laboratory Tests 11/16/17 10:15: White Blood Count 7.0, Red Blood Count 4.22, Hemoglobin 13.2, Hematocrit 41.4, Mean Corpuscular Volume 98, Mean Corpuscular Hemoglobin 31.2H, Mean Corpuscular Hemoglobin Concent 31.9L, Red Cell Distribution Width 13.4, Platelet Count 415, Mean Platelet Volume 5.8L, Neutrophils (%) (Auto) 65.1, Lymphocytes (%) (Auto) 23.8, Monocytes (%) (Auto) 7.2, Eosinophils (%) (Auto) 2.9, Basophils (%) (Auto ) 1.1, Sodium Level 139, Potassium Level 3.6, Chloride Level 99, Carbon Dioxide Level 33H, Anion Gap 7, Blood Urea Nitrogen 14, Creatinine 0.9, Estimat Glomerular Filtration Rate > 60, Glucose Level 101, Calcium Level 9.5 Current Medications Medications (Trade) Dose Ordered Sig/Luis Daniel Route PRN Reason Start Time Stop Time Status Last Admin Dose Admin Acetaminophen (Tylenol) 650 mg Q4H PRN ORAL Fever/Headache/Mild Pain 11/09/17 13:30 12/09/17 13:29 11/16/17 09:08 Al Hydroxide/Mg Hydroxide (Mylanta II) 30 ml Q6H PRN ORAL dyspepsia 11/07/17 11:45 12/07/17 11:44 11/16/17 12:00 Dextrose (Dextrose 50%) STAT PRN IV Hypoglycemia 11/07/17 11:45 12/07/17 11:44 Magnesium Oxide (Mag-Ox 400mg) 400 mg THREE TIMES A DAY ORAL 11/08/17 13:00 12/08/17 12:59 11/16/17 12:01 Ondansetron HCl (Zofran) 4 mg Q6H PRN IVP Nausea & Vomiting 11/07/17 11:45 12/07/17 11:44 11/16/17 09:08 Polyethylene Glycol (Miralax) 17 gm HSPRN PRN ORAL Constipation 11/07/17 11:45 12/07/17 11:44 11/14/17 17:43 Yen Parson NP (Vanchtein) Nov 16, 2017 12:51
[2017-11-16 15:26] VITALS: BP 110/69
--- NOTE | 2017-11-16 15:41 | Internal Med Progress Note ---
Subjective Date of Service: Nov 16, 2017 Physician Name Manuel Tong Attending Physician Virgilio Carvajal MD Current Medications Medications (Trade) Dose Ordered Sig/Luis Daniel Route PRN Reason Start Time Stop Time Status Last Admin Dose Admin Acetaminophen (Tylenol) 650 mg Q4H PRN ORAL Fever/Headache/Mild Pain 11/09/17 13:30 12/09/17 13:29 11/16/17 09:08 Al Hydroxide/Mg Hydroxide (Mylanta II) 30 ml Q6H PRN ORAL dyspepsia 11/07/17 11:45 12/07/17 11:44 11/16/17 12:00 Dextrose (Dextrose 50%) STAT PRN IV Hypoglycemia 11/07/17 11:45 12/07/17 11:44 Magnesium Oxide (Mag-Ox 400mg) 400 mg THREE TIMES A DAY ORAL 11/08/17 13:00 12/08/17 12:59 11/16/17 12:01 Ondansetron HCl (Zofran) 4 mg Q6H PRN IVP Nausea & Vomiting 11/07/17 11:45 12/07/17 11:44 11/16/17 09:08 Polyethylene Glycol (Miralax) 17 gm HSPRN PRN ORAL Constipation 11/07/17 11:45 12/07/17 11:44 11/14/17 17:43 Allergies: Coded Allergies: ACETAMINOPHEN (Verified Allergy, Unknown, 10/28/17) HYDROCODONE (Verified Allergy, Unknown, 10/28/17) HYDROMORPHONE (Unverified Allergy, Unknown, 11/07/17) ROS Limited/Unobtainable: No Constitutional: Reports: no symptoms HEENT: Reports: no symptoms Cardiovascular: Reports: no symptoms Respiratory: Reports: no symptoms Gastrointestinal/Abdominal: Reports: no symptoms Genitourinary: Reports: no symptoms Neurologic/Psychiatric: Reports: no symptoms Subjective 51 YO F admitted with lower extremity weakness. Await placement at long term facility. Cover for Int Jarvis-Dr Carvajal. Objective Last Vital Signs Date Time Temp Pulse Resp B/P (MAP) Pulse Ox O2 Delivery O2 Flow Rate FiO2 11/16/17 15:26 98.1 77 14 110/69 100 Room Air Laboratory Tests Test 11/16/17 10:15 White Blood Count 7.0 K/UL (4.8-10.8) Red Blood Count 4.22 M/UL (4.20-5.40) Hemoglobin 13.2 G/DL (12.0-16.0) Hematocrit 41.4 % (37.0-47.0) Mean Corpuscular Volume 98 FL (80-99) Mean Corpuscular Hemoglobin 31.2 PG (27.0-31.0) H Mean Corpuscular Hemoglobin Concent 31.9 G/DL (32.0-36.0) L Red Cell Distribution Width 13.4 % (11.6-14.8) Platelet Count 415 K/UL (150-450) Mean Platelet Volume 5.8 FL (6.5-10.1) L Neutrophils (%) (Auto) 65.1 % (45.0-75.0) Lymphocytes (%) (Auto) 23.8 % (20.0-45.0) Monocytes (%) (Auto) 7.2 % (1.0-10.0) Eosinophils (%) (Auto) 2.9 % (0.0-3.0) Basophils (%) (Auto) 1.1 % (0.0-2.0) Sodium Level 139 MMOL/L (136-145) Potassium Level 3.6 MMOL/L (3.5-5.1) Chloride Level 99 MMOL/L (98-107) Carbon Dioxide Level 33 MMOL/L (21-32) H Anion Gap 7 mmol/L (5-15) Blood Urea Nitrogen 14 mg/dL (7-18) Creatinine 0.9 MG/DL (0.55-1.30) Estimat Glomerular Filtration Rate > 60 mL/min (>60) Glucose Level 101 MG/DL (74-106) Calcium Level 9.5 MG/DL (8.5-10.1) Intake and Output 11/16/17 11/17/17 19:00 07:00 # Voids 1 Objective Objective General: No acute distress, awake and alert HEENT: NCAT, sclera anicteric, PERRL, EOMI. Neck: Supple, no significant jugular venous distention, Lungs: Good inspiratory effort, clear to auscultation bilaterally, no Wheeze or Rales. Heart: Regular rate and rhythm, normal S1/S2, no murmurs Abdomen: soft, nontender, nondistended. Normoactive bowel sounds. 15 cm mass right groin; reducible. / Rectal: Refused and deferred. Extremities: No Cyanosis , clubbing or edema. Neuro: A&O x 3, Able to move all extremities, lower extremities weakness. Skin: warm, no rashes or lesions Psych: Normal mood and affect Assessment/Plan Assessment/Plan Assessment/Plan (1) Inguinal hernia-surgery consult. (2) Abdominal pain (3) Lower extremities weakness etiology? (4) Depression with somatization (5) HTN Plan: Await longterm fac placement See surgery consult-elective outpatient hernia repair Patient refused PT evaluation F/U with Dr. Gorman Recommendation DC Planning to SNF Full code Heparin SQ MANUEL TONG Nov 16, 2017 15:41
[2017-11-16 20:00] VITALS: BP 123/65
[2017-11-17] VITALS: BP 115/87
[2017-11-17 04:00] VITALS: BP 107/63
[2017-11-17 08:00] VITALS: BP 125/75
[2017-11-17] MEDS: Magnesium Oxide 400mg tab ORAL SCH ×3 (08:48→18:48)
--- NOTE | 2017-11-17 09:43 | Pulmonology Progress Note ---
Assessment/Plan Assessment/Plan ASSESSMENT depression with somatization anxiety LE weakness inguinal hernia anemia lumbar spondylosis L3-4,L4-5,L5-S1 Hx of HTN PLAN OF CARE [facility] floor urine tox screen negative MRI brain negative for any acute IC pathology MRI L spine no acute abnormality but evidence of lumbar spondylosis L3-4, L4-5, L5-S1 psych follows on Cymbalta and Seroquel per psych patient can not be hold PT eval and Rx was ordered pain management, no narcotics surgery eval done, hernia repair as outpatient DVT prophylaxis awaiting for placement PT eval stated that patient subjective reports were inconsistent with objective findings : patient able to move her arms but reports paralysis BUE and BLE. Per PT - patient had no skilled needs at this time , and PT discharged patient from PT services. Psych note stated that patient using hospitals for placement purposes. She recommend to discharge the patient. dc plan in progress case discussed and evaluated by supervising physician Subjective Allergies: Coded Allergies: ACETAMINOPHEN (Verified Allergy, Unknown, 10/28/17) HYDROCODONE (Verified Allergy, Unknown, 10/28/17) HYDROMORPHONE (Unverified Allergy, Unknown, 11/07/17) Subjective awaiting for placement reports back pain and wants narcotics Objective Last 24 Hour Vital Signs Date Time Temp Pulse Resp B/P (MAP) Pulse Ox O2 Delivery O2 Flow Rate FiO2 11/17/17 08:00 97.5 72 17 125/75 100 Room Air 11/17/17 04:00 97.7 71 19 107/63 100 Room Air 11/17/17 00:00 97.7 82 20 115/87 100 Room Air 11/16/17 23:37 97.9 11/16/17 20:00 97.9 75 20 123/65 100 Room Air 11/16/17 15:26 98.1 77 14 110/69 100 Room Air 11/16/17 11:17 97.4 97 16 117/73 99 Room Air Objective General Appearance: no acute distress HEENT: normocephalic, atraumatic, anicteric, mucous membranes moist Respiratory/Chest: lungs clear, no respiratory distress, no accessory muscle use Cardiovascular: normal peripheral pulses, normal rate, no JVD Abdomen: normal bowel sounds, soft, non tender, non distended Genitourinary: normal external genitalia Extremities: no edema, pedal pulses normal Neurologic/Psychiatric: alert, oriented x 3, responsive, Musculoskeletal: normal muscle bulk Laboratory Tests 11/16/17 10:15: White Blood Count 7.0, Red Blood Count 4.22, Hemoglobin 13.2, Hematocrit 41.4, Mean Corpuscular Volume 98, Mean Corpuscular Hemoglobin 31.2H, Mean Corpuscular Hemoglobin Concent 31.9L, Red Cell Distribution Width 13.4, Platelet Count 415, Mean Platelet Volume 5.8L, Neutrophils (%) (Auto) 65.1, Lymphocytes (%) (Auto) 23.8, Monocytes (%) (Auto) 7.2, Eosinophils (%) (Auto) 2.9, Basophils (%) (Auto ) 1.1, Sodium Level 139, Potassium Level 3.6, Chloride Level 99, Carbon Dioxide Level 33H, Anion Gap 7, Blood Urea Nitrogen 14, Creatinine 0.9, Estimat Glomerular Filtration Rate > 60, Glucose Level 101, Calcium Level 9.5 Current Medications Medications (Trade) Dose Ordered Sig/Luis Daniel Route PRN Reason Start Time Stop Time Status Last Admin Dose Admin Acetaminophen (Tylenol) 650 mg Q4H PRN ORAL Fever/Headache/Mild Pain 11/09/17 13:30 12/09/17 13:29 11/16/17 22:38 Al Hydroxide/Mg Hydroxide (Mylanta II) 30 ml Q6H PRN ORAL dyspepsia 11/07/17 11:45 12/07/17 11:44 11/16/17 20:55 Dextrose (Dextrose 50%) STAT PRN IV Hypoglycemia 11/07/17 11:45 12/07/17 11:44 Magnesium Oxide (Mag-Ox 400mg) 400 mg THREE TIMES A DAY ORAL 11/08/17 13:00 12/08/17 12:59 11/17/17 08:48 Ondansetron HCl (Zofran) 4 mg Q6H PRN IVP Nausea & Vomiting 11/07/17 11:45 12/07/17 11:44 11/17/17 05:05 Polyethylene Glycol (Miralax) 17 gm HSPRN PRN ORAL Constipation 11/07/17 11:45 12/07/17 11:44 11/14/17 17:43 Yen Parson NP (Vanchtein) Nov 17, 2017 09:43
[2017-11-17 12:00] VITALS: BP 117/63
[2017-11-17] MEDS: Mylanta II UD 30ml ORAL PRN ×2 (12:08→18:50)
--- NOTE | 2017-11-17 15:46 | Internal Med Progress Note ---
Subjective Date of Service: Nov 17, 2017 Physician Name Manuel Tong Attending Physician Virgilio Carvajal MD Current Medications Medications (Trade) Dose Ordered Sig/Luis Daniel Route PRN Reason Start Time Stop Time Status Last Admin Dose Admin Acetaminophen (Tylenol) 650 mg Q4H PRN ORAL Fever/Headache/Mild Pain 11/09/17 13:30 12/09/17 13:29 11/17/17 12:09 Al Hydroxide/Mg Hydroxide (Mylanta II) 30 ml Q6H PRN ORAL dyspepsia 11/07/17 11:45 12/07/17 11:44 11/17/17 12:08 Dextrose (Dextrose 50%) STAT PRN IV Hypoglycemia 11/07/17 11:45 12/07/17 11:44 Magnesium Oxide (Mag-Ox 400mg) 400 mg THREE TIMES A DAY ORAL 11/08/17 13:00 12/08/17 12:59 11/17/17 12:11 Ondansetron HCl (Zofran) 4 mg Q6H PRN IVP Nausea & Vomiting 11/07/17 11:45 12/07/17 11:44 11/17/17 05:05 Polyethylene Glycol (Miralax) 17 gm HSPRN PRN ORAL Constipation 11/07/17 11:45 12/07/17 11:44 11/14/17 17:43 Allergies: Coded Allergies: ACETAMINOPHEN (Verified Allergy, Unknown, 10/28/17) HYDROCODONE (Verified Allergy, Unknown, 10/28/17) HYDROMORPHONE (Unverified Allergy, Unknown, 11/07/17) ROS Limited/Unobtainable: No Constitutional: Reports: no symptoms HEENT: Reports: no symptoms Cardiovascular: Reports: no symptoms Respiratory: Reports: no symptoms Gastrointestinal/Abdominal: Reports: no symptoms Genitourinary: Reports: no symptoms Neurologic/Psychiatric: Reports: weakness Subjective 51 YO F admitted with lower extremity weakness. [facility]. Cover for Int Jarvis-Dr Carvajal. Objective Last Vital Signs Date Time Temp Pulse Resp B/P (MAP) Pulse Ox O2 Delivery O2 Flow Rate FiO2 11/17/17 12:00 98.0 18 117/63 100 11/17/17 08:00 72 Room Air Intake and Output 11/17/17 11/18/17 19:00 07:00 Intake Total 1050 ml Balance 1050 ml Intake Oral 1050 ml # Voids 3 # Bowel Movements 2 Objective Objective General: No acute distress, awake and alert HEENT: NCAT, sclera anicteric, PERRL, EOMI. Neck: Supple, no significant jugular venous distention, Lungs: Good inspiratory effort, clear to auscultation bilaterally, no Wheeze or Rales. Heart: Regular rate and rhythm, normal S1/S2, no murmurs Abdomen: soft, nontender, nondistended. Normoactive bowel sounds. 15 cm mass right groin; reducible. / Rectal: Refused and deferred. Extremities: No Cyanosis , clubbing or edema. Neuro: A&O x 3, Able to move all extremities, lower extremities weakness. Skin: warm, no rashes or lesions Psych: Normal mood and affect Assessment/Plan Assessment/Plan Assessment/Plan (1) Inguinal hernia-surgery consult. (2) Abdominal pain (3) Lower extremities weakness etiology? (4) Depression with somatization (5) HTN Plan: Await [facility] fac placement See surgery consult-elective outpatient hernia repair Patient refused PT evaluation F/U with Dr. Gorman Recommendation DC Planning to SNF Full code Heparin SQ MANUEL TONG Nov 17, 2017 15:46
[2017-11-17 16:00] VITALS: BP 103/67
[2017-11-17 20:00] VITALS: BP 124/83
[2017-11-18 00:04] VITALS: BP 105/68
[2017-11-18 04:00] VITALS: BP 107/64
[2017-11-18 08:11] VITALS: BP 109/63
[2017-11-18] MEDS: Magnesium Oxide 400mg tab ORAL SCH ×3 (08:36→18:02)
[2017-11-18] MEDS: Mylanta II UD 30ml ORAL PRN ×2 (08:36→18:02)
[2017-11-18 12:05] VITALS: BP 107/66
[2017-11-18 15:40] VITALS: BP 121/82
--- NOTE | 2017-11-18 18:40 | Internal Med Progress Note ---
Subjective Date of Service: Nov 18, 2017 Physician Name Manuel Tong Attending Physician Virgilio Carvajal MD Current Medications Medications (Trade) Dose Ordered Sig/Luis Daniel Route PRN Reason Start Time Stop Time Status Last Admin Dose Admin Acetaminophen (Tylenol) 650 mg Q4H PRN ORAL Fever/Headache/Mild Pain 11/09/17 13:30 12/09/17 13:29 11/18/17 18:02 Al Hydroxide/Mg Hydroxide (Mylanta II) 30 ml Q6H PRN ORAL dyspepsia 11/07/17 11:45 12/07/17 11:44 11/18/17 18:02 Dextrose (Dextrose 50%) STAT PRN IV Hypoglycemia 11/07/17 11:45 12/07/17 11:44 Magnesium Oxide (Mag-Ox 400mg) 400 mg THREE TIMES A DAY ORAL 11/08/17 13:00 12/08/17 12:59 11/18/17 18:02 Ondansetron HCl (Zofran) 4 mg Q6H PRN IVP Nausea & Vomiting 11/07/17 11:45 12/07/17 11:44 11/18/17 18:03 Polyethylene Glycol (Miralax) 17 gm HSPRN PRN ORAL Constipation 11/07/17 11:45 12/07/17 11:44 11/14/17 17:43 Allergies: Coded Allergies: ACETAMINOPHEN (Verified Allergy, Unknown, 10/28/17) HYDROCODONE (Verified Allergy, Unknown, 10/28/17) HYDROMORPHONE (Unverified Allergy, Unknown, 11/07/17) ROS Limited/Unobtainable: No Constitutional: Reports: no symptoms HEENT: Reports: no symptoms Cardiovascular: Reports: no symptoms Respiratory: Reports: no symptoms Gastrointestinal/Abdominal: Reports: no symptoms Genitourinary: Reports: no symptoms Neurologic/Psychiatric: Reports: no symptoms Subjective 51 YO F admitted with lower extremity weakness. Await placement at assisted facility. Cover for Int Jarvis-Dr Carvajal. Objective Last Vital Signs Date Time Temp Pulse Resp B/P (MAP) Pulse Ox O2 Delivery O2 Flow Rate FiO2 11/18/17 15:40 98.2 88 20 121/82 100 11/18/17 04:00 Room Air Intake and Output 11/18/17 11/19/17 19:00 07:00 Intake Total 840 ml Balance 840 ml Intake Oral 840 ml # Voids 5 # Bowel Movements 1 Objective Objective General: No acute distress, awake and alert HEENT: NCAT, sclera anicteric, PERRL, EOMI. Neck: Supple, no significant jugular venous distention, Lungs: Good inspiratory effort, clear to auscultation bilaterally, no Wheeze or Rales. Heart: Regular rate and rhythm, normal S1/S2, no murmurs Abdomen: soft, nontender, nondistended. Normoactive bowel sounds. 15 cm mass right groin; reducible. / Rectal: Refused and deferred. Extremities: No Cyanosis , clubbing or edema. Neuro: A&O x 3, Able to move all extremities, lower extremities weakness. Skin: warm, no rashes or lesions Psych: Normal mood and affect Assessment/Plan Status: stable Assessment/Plan Assessment/Plan (1) Inguinal hernia-surgery consult. (2) Abdominal pain (3) Lower extremities weakness etiology? (4) Depression with somatization (5) HTN Plan: Await half-way fac placement See surgery consult-elective outpatient hernia repair Patient refused PT evaluation F/U with Dr. Gorman Recommendation DC Planning to SNF Full code Heparin SQ MANUEL TONG Nov 18, 2017 18:40
[2017-11-18 20:00] VITALS: BP 122/71
[2017-11-19] VITALS (9 sets, daily range): BP systolic 106–152; BP diastolic 65–110
[2017-11-19] MEDS: Mylanta II UD 30ml ORAL PRN ×4 (00:02→19:59)
[2017-11-19] MEDS: Magnesium Oxide 400mg tab ORAL SCH ×3 (10:22→18:22)
--- NOTE | 2017-11-19 18:46 | Internal Med Progress Note ---
Subjective Date of Service: Nov 19, 2017 Physician Name Manuel Tong Attending Physician Virgilio Carvajal MD Current Medications Medications (Trade) Dose Ordered Sig/Luis Daniel Route PRN Reason Start Time Stop Time Status Last Admin Dose Admin Acetaminophen (Tylenol) 650 mg Q4H PRN ORAL Fever/Headache/Mild Pain 11/09/17 13:30 12/09/17 13:29 11/19/17 12:43 Al Hydroxide/Mg Hydroxide (Mylanta II) 30 ml Q6H PRN ORAL dyspepsia 11/07/17 11:45 12/07/17 11:44 11/19/17 12:42 Dextrose (Dextrose 50%) STAT PRN IV Hypoglycemia 11/07/17 11:45 12/07/17 11:44 Magnesium Oxide (Mag-Ox 400mg) 400 mg THREE TIMES A DAY ORAL 11/08/17 13:00 12/08/17 12:59 11/19/17 18:22 Ondansetron HCl (Zofran) 4 mg Q6H PRN IVP Nausea & Vomiting 11/07/17 11:45 12/07/17 11:44 11/19/17 12:43 Polyethylene Glycol (Miralax) 17 gm HSPRN PRN ORAL Constipation 11/07/17 11:45 12/07/17 11:44 11/14/17 17:43 Allergies: Coded Allergies: ACETAMINOPHEN (Verified Allergy, Unknown, 10/28/17) HYDROCODONE (Verified Allergy, Unknown, 10/28/17) HYDROMORPHONE (Unverified Allergy, Unknown, 11/07/17) ROS Limited/Unobtainable: No Constitutional: Reports: no symptoms HEENT: Reports: no symptoms Cardiovascular: Reports: no symptoms Respiratory: Reports: no symptoms Gastrointestinal/Abdominal: Reports: no symptoms Genitourinary: Reports: no symptoms Neurologic/Psychiatric: Reports: no symptoms Subjective 51 YO F admitted with lower extremity weakness. [facility]. Cover for Int Jarvis-Dr Carvajal. Objective Last Vital Signs Date Time Temp Pulse Resp B/P (MAP) Pulse Ox O2 Delivery O2 Flow Rate FiO2 11/19/17 18:00 98.1 84 20 121/82 100 Room Air Intake and Output 11/19/17 11/20/17 19:00 07:00 Intake Total 620 ml Balance 620 ml Intake Oral 620 ml # Voids 5 Objective Objective General: No acute distress, awake and alert HEENT: NCAT, sclera anicteric, PERRL, EOMI. Neck: Supple, no significant jugular venous distention, Lungs: Good inspiratory effort, clear to auscultation bilaterally, no Wheeze or Rales. Heart: Regular rate and rhythm, normal S1/S2, no murmurs Abdomen: soft, nontender, nondistended. Normoactive bowel sounds. 15 cm mass right groin; reducible. / Rectal: Refused and deferred. Extremities: No Cyanosis , clubbing or edema. Neuro: A&O x 3, Able to move all extremities, lower extremities weakness. Skin: warm, no rashes or lesions Psych: Normal mood and affect Assessment/Plan Assessment/Plan Assessment/Plan (1) Inguinal hernia-surgery consult. (2) Abdominal pain (3) Lower extremities weakness etiology? (4) Depression with somatization (5) HTN [facility] See surgery consult-elective outpatient hernia repair Patient refused PT evaluation F/U with Dr. Gorman Recommendation [place] Planning to SNF Full code Heparin SQ Discharge to [facility] tomorrow 11/20/17 MANUEL TONG Nov 19, 2017 18:46
[2017-11-20] MEDS: Mylanta II UD 30ml ORAL PRN ×2 (01:57→15:30)
[2017-11-20 04:00] VITALS: BP 104/64
[2017-11-20 08:44] VITALS: BP 126/75
--- NOTE | 2017-11-20 09:00 | Internal Med Progress Note ---
Subjective Physician Name Virgilio Carvajal Attending Physician Virgilio Carvajal MD Current Medications Medications (Trade) Dose Ordered Sig/Luis Daniel Route PRN Reason Start Time Stop Time Status Last Admin Dose Admin Acetaminophen (Tylenol) 650 mg Q4H PRN ORAL Fever/Headache/Mild Pain 11/09/17 13:30 12/09/17 13:29 11/20/17 01:57 Al Hydroxide/Mg Hydroxide (Mylanta II) 30 ml Q6H PRN ORAL dyspepsia 11/07/17 11:45 12/07/17 11:44 11/20/17 01:57 Dextrose (Dextrose 50%) STAT PRN IV Hypoglycemia 11/07/17 11:45 12/07/17 11:44 Magnesium Oxide (Mag-Ox 400mg) 400 mg THREE TIMES A DAY ORAL 11/08/17 13:00 12/08/17 12:59 11/19/17 18:22 Ondansetron HCl (Zofran) 4 mg Q6H PRN IVP Nausea & Vomiting 11/07/17 11:45 12/07/17 11:44 11/20/17 01:57 Polyethylene Glycol (Miralax) 17 gm HSPRN PRN ORAL Constipation 11/07/17 11:45 12/07/17 11:44 11/14/17 17:43 Allergies: Coded Allergies: ACETAMINOPHEN (Verified Allergy, Unknown, 10/28/17) HYDROCODONE (Verified Allergy, Unknown, 10/28/17) HYDROMORPHONE (Unverified Allergy, Unknown, 11/07/17) Subjective awake, alert, responsive, No CP or SOB, No N/V, screaming and yelling Objective Last Vital Signs Date Time Temp Pulse Resp B/P (MAP) Pulse Ox O2 Delivery O2 Flow Rate FiO2 11/20/17 04:00 97.6 68 18 104/64 100 11/19/17 18:00 Room Air Objective General: No acute distress, awake and alert HEENT: NCAT, sclera anicteric, PERRL, EOMI. Neck: Supple, no significant jugular venous distention, Lungs: Good inspiratory effort, clear to auscultation bilaterally, no Wheeze or Rales. Heart: Regular rate and rhythm, normal S1/S2, no murmurs Abdomen: soft, nontender, nondistended. Normoactive bowel sounds. / Rectal: Refused and deferred. Extremities: No Cyanosis , clubbing or edema. Neuro: A&O x 3, Able to move upper extremities, . Skin: warm, no rashes or lesions Psych: Normal mood and affect Assessment/Plan Assessment/Plan (1) Inguinal hernia (2) Abdominal pain (3) Lower extremities weakness (4) Depression with somatization (5) HTN Plan: Patient refused PT evaluation F/U with Dr. Gorman Recommendation Full code Heparin SQ Discharge to [facility] today. MRI of Lumbar spine Impression: No acute abnormality identified. No gross abnormal postcontrast enhancement. Clinical correlation recommended. Degenerative lumbar spondylosis involving L3/L4, L4/L5 and L5/S1 Virgilio Carvajal MD Nov 20, 2017 09:00
[2017-11-20] MEDS: Magnesium Oxide 400mg tab ORAL SCH ×3 (09:58→18:40)
[2017-11-20 11:32] VITALS: BP 129/79
[2017-11-20 15:31] VITALS: BP 128/83
[2017-11-20 20:00] VITALS: BP 108/58
[2017-11-21 00:04] VITALS: BP 108/61
[2017-11-21] MEDS: Mylanta II UD 30ml ORAL PRN ×2 (01:03→08:28)
[2017-11-21 04:00] VITALS: BP 107/66
[2017-11-21 08:00] VITALS: BP 121/83
[2017-11-21] MEDS: Magnesium Oxide 400mg tab ORAL SCH (08:28)
--- NOTE | 2017-11-22 15:04 | Discharge Summary ---
Discharge Summary Hospital Course Date of Admission Nov 07, 2017 at 09:16 Date of Discharge Nov 21, 2017 at 11:05 Admitting Diagnosis alterd mental status, weakness ALDO Laurie Vargas is a 51 year old female who was admitted on Nov 07, 2017 at 09: 16 for Altered Mental Status, Weakness Hospital Course [id number] Discharge Discharge Disposition Patient was discharged to [facility] Discharge Diagnoses: Margo Rodriguez NP Nov 22, 2017 15:04
--- NOTE | 2017-11-23 01:00 | Discharge Summary 2 SIG ---
DATE OF ADMISSION: 11/07/2017 DATE OF DISCHARGE: 11/21/2017 CONSULTANTS: 1. Rossi Lopez M.D. 2. Alla Gorman M.D. 3. Blaine Malave M.D. 4. Boris Urias M.D. BRIEF HOSPITAL COURSE: The patient is a 51-year-old -[place] female with medical history significant for psychiatric disorder as well as hypertension and questionable oncological cancer, which is not confirmed. She presented to the hospital complaining of inability to walk and cannot feel her legs. She has been prescribed a muscle relaxant in the past and she has been getting progressively worst. She had extensive workup done in the past and was scheduled to see her neurologist as well as oncologist, however, she stated that her symptoms had gotten worse and decided to come to the hospital. She was then admitted for change of mental status as well as lower extremity weakness. She was admitted to medical floor. MRI of the brain done showed no acute mass effect, negative for intracranial bleed, infarct, or mass. She had a venous duplex of the lower extremity that was stated bilaterally without any DVT. She has psychiatric history. Dr. Gorman was consulted. She was diagnosed to have anxiety disorder with major depressive disorder and was initially started on Cymbalta 30 mg nightly and Seroquel 50 mg nightly. She underwent neuro examination. 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 Neurologic exam was without any lateralizing findings and MRI of the brain was normal. The patient was illogical and complained about right groin hernia. She complained of discomfort and stated that she is supposed to have it repaired, however, did not proceed because of ascites of unknown etiology. She has an easily reducible hernia, likely inguinal, but possibly femoral. Discussed repair and recommended repair can be done on elected basis. However, if it becomes incarcerated or strangulated, then would require immediate surgery, but currently hernia is easily reducible and was recommended to be done electively. The patient's issue is most consistent with psychiatric issue. The patient's objective reports were inconsistent with objective findings. There are no skilled needs at this time and physical therapy discharged the patient from PT services. She would eventually need placement and she was eventually discharged to recuperative care. FINAL DIAGNOSES: 1. Abdominal pain with easily reducible inguinal hernia on the right. 2. Lower extremity weakness. 3. Depression with somatization. 4. Hypertension. 5. Lumbar spondylosis, L3-L4 and L5-S1. 6. Anxiety. DISPOSITION: The patient was discharged to recuperative care. DISCHARGE MEDICATIONS: Refer to mediation list. DISCHARGE INSTRUCTIONS: The patient was advised to follow up with PMD in a week. Virgilio Carvajal M.D. I have been assigned to dictate discharge summary on this account and I was not involved in the patient's management. Margo Rodriguez N.P. DR: Fermin JOB#: [id number] CC: STEPHANIE
== END 2017-11-21 11:05 | DRG 254 ==
LOC: EDBD 08:41 → EMR 09:15 → 4E 09:16 → EDBEDREQ 10:45
DX: K40.90 Unilateral inguinal hernia, without obstruction or gangrene, not specified as recurrent (principal); I10 Essential (primary) hypertension; R53.1 Weakness; R10.9 Unspecified abdominal pain; Z88.6 Allergy status to analgesic agent; F45.0 Somatization disorder; M47.896 Other spondylosis, lumbar region; F41.9 Anxiety disorder, unspecified; F99 Mental disorder, not otherwise specified; Z59.0 Homelessness; F32.9 Major depressive disorder, single episode, unspecified
CPT/HCPCS: 36415; 70551; 72158; 80048; 80053; 80061; 80307; 80329; 81003; 82140; 82550; 82553; 82962; 83735; 84100; 84443; 84484; 85025; 85610; 85730; 93005; 93970; 99285; A9585; J2405